=== PATIENT | female | born 1935 | race Caucasian/White ===

== ENCOUNTER 2019-03-26 09:11 | Inpatient (IN) | payer OTHER, MEDICAID ==
[~2019-03-26] VITALS: Ht 160 cm; Wt 60.3 kg
[2019-03-26] VITALS (19 sets, daily range): BP systolic 47–152; BP diastolic 27–74
--- NOTE | 2019-03-26 09:11 | NUR ---
ANGELA BUCKNER ALS TO ER BED 08
[2019-03-26] MEDS ORDERED: NACL 0.9% 1,000 ML IV ONE ×2 (09:35→11:20)
--- NOTE | 2019-03-26 09:37 | NUR ---
LAB AT BEDSIDE
--- NOTE | 2019-03-26 09:38 | NUR ---
VERBAL ORDER FROM DR DANIELS TO INSERT ANGLIN
--- NOTE | 2019-03-26 09:40 | NUR ---
84 Y/F BIBA AMBULANCE FROM [facility] FOR ALOC SINCE 6AM THIS MORNING, UNKNOWN BASELINE PER EMS. PERRLA. PT TRACHED AND ON A VENTILATOR FI02 30, PEEP 3, PEAK PRESSURE 35, TV 413, RR 13 EVEN AND UNLABORED. PT NONVERBAL, SHOWING NO SIGNS OF DISTRESS. HX OF AFIB, ACUTE RESP FAILURE, HTN, PARKINSONS, HEART FAILURE, CHRONIC AFIB, EPILEPSY, ANXIETY, AND HEMIPLEGIC. SKIN DRY AND WARM TO TOUCH.
--- NOTE | 2019-03-26 09:47 | NUR ---
BP NOW 98/52
--- NOTE | 2019-03-26 09:55 | NUR ---
XRAY AT BEDSIDE
--- NOTE | 2019-03-26 10:02 | NUR ---
EMT AT BEDSIDE FOR EKG
[2019-03-26 10:12] LABS: BASOPHILS % (AUTO) 0.1 % (0.0-2.0); EOSINOPHILS # (AUTO) 0.1 K/uL (0-0.4); EOSINOPHILS % (AUTO) 1.5 % (0.0-4.0); HEMOGLOBIN 10.4 g/dL (12.0-16.0); LYMPHOCYTES # (AUTO) 0.4 K/uL (2.5-16.5); LYMPHOCYTES % (AUTO) 5.4 % (20.5-51.1); MEAN CORPUSCULAR HEMOGLOBIN 32 pg (27-31); MEAN CORPUSCULAR HGB CONC 31 g/dL (33-37); MONOCYTES # (AUTO) 0.6 K/uL (0.8-1.0); MONOCYTES % (AUTO) 8.6 % (1.7-9.3); NEUTROPHILS # (AUTO) 5.5 K/uL (1.8-7.7); NEUTROPHILS % (AUTO) 84.4 % (42.2-75.2); PLATELET COUNT (AUTO) 235 K/uL (140-450); RED CELL DISTRIBUTION WIDTH 14.1 % (11.6-13.7); WHITE BLOOD COUNT (AUTO) 6.6 K/uL (4.8-10.8)
--- NOTE | 2019-03-26 10:24 | NUR ---
ABG RESULTS GIVEN TO , PHYSICIAN MADE CHANGES TO VENT SETTINGS. NEW SETTINGS AC/VC 14, VT 425, PEEP 5 AND FIO2 30%. NURSE MADE AWARE OF CHANGES. WILL CONTINUE TO MONITOR.
--- NOTE | 2019-03-26 10:30 | NUR ---
# 16 FR Antunez catheter with 10 ml utilizing sterile technique. Immediate return of 200 ml YELLOW urine noted. Bedside drainage bag placed below level of bladder. Urine sample collected and sent to lab. Pt tolerated procedure WELL.
--- NOTE | 2019-03-26 10:40 | NUR ---
WOUND TO PTS R LOWER EXTREMITY, PRESENT UPON ADMIT, PICTURES TAKEN
[2019-03-26 10:43] LABS: ALBUMIN 2.6 g/dL (3.4-5.0); ANION GAP 13.1 (8-16); ASPARTATE AMINOTRANSFERASE 15 U/L (15-37); CARBON DIOXIDE 31.1 mmol/L (21-32); CHLORIDE 99 mmol/L (98-107); CREATININE 1.1 mg/dL (0.6-1.3); GLUCOSE 176 mg/dL (74-106); POTASSIUM 5.2 mmol/L (3.5-5.1); SODIUM SERUM 138 mmol/L (136-145); TOTAL BILIRUBIN 0.3 mg/dL (0.0-1.0)
[2019-03-26 10:48] LABS: UREA NITROGEN, BLOOD 71 mg/dL (7-18)
--- NOTE | 2019-03-26 10:58 | NUR ---
PTS BP DROPPING. NOW 74/29 PT MOVING ARM TO PAIN IV STICK
[2019-03-26] MEDS ORDERED: LEVOFLOXACIN 500 MG/D5W PREMIX 100 ML IV ONE (11:00)
--- NOTE | 2019-03-26 11:02 | NUR ---
2 L BOLUS INFUSING. RECTAL TEMP 100.9
[2019-03-26 11:04] LABS: APPEARANCE,URINE HAZY (CLEAR); BILIRUBIN,URINE NEGATIVE (NEGATIVE); BLOOD, URINE NEGATIVE (NEGATIVE); COLOR,URINE YELLOW (YELLOW); LEUKOCYTE ESTERASE ,URINE 1+ (NEGATIVE); NITRITE, URINE NEGATIVE (NEGATIVE); PH,URINE 5.5 (5.0-9.0); UGLUCOSE NEGATIVE (NEGATIVE)
[2019-03-26] MEDS ORDERED: ACETAMINOPHEN 650 MG SUPP RC ONE (11:05)
--- NOTE | 2019-03-26 11:07 | NUR ---
BP NOW 94/44, VERBAL ORDER TO GIVE TYLENOL 650 MG RECTALLY.
[2019-03-26 11:14] LABS: RBC,URINE 0-5 /HPF (0-5); WBC,URINE 16-25 (MOD) /HPF (0-5)
--- NOTE | 2019-03-26 11:21 | NUR ---
LEVAQUIN IVBP STARTED
[2019-03-26] MEDS ORDERED: ASCO-770 GT (11:28)
[2019-03-26] MEDS ORDERED: MVI (11:36)
[2019-03-26] MEDS ORDERED: FURO-572 PO (11:36)
--- NOTE | 2019-03-26 11:39 | NUR ---
REPORT GIVEN TO MICHAEL RN, TRANSFER OF CARE, PT MOVED TO BED 10
[2019-03-26] MEDS ORDERED: LANS15EC31 GT (11:40)
--- NOTE | 2019-03-26 11:40 | NUR ---
ASSUMED CARE OF PT FROM WIL BRAGA.
--- NOTE | 2019-03-26 11:43 | NUR ---
Ozzy lynn in [facility] - 03/26/19 at 1147 by [email or web address] BP 102/
[2019-03-26] MEDS ORDERED: METO25TA PO (11:45)
--- NOTE | 2019-03-26 11:48 | NUR ---
DR DANIELS AT BEDSIDE
--- NOTE | 2019-03-26 11:56 | NUR ---
DR BLOOD AWARE OF BP AND IS AWARE OF NEED FOR CENTRAL LINE ACCESS.
--- NOTE | 2019-03-26 12:10 | NUR ---
LARGE BM CLEANED, MERLINE-CARE PROVIDED. DR DANIELS TO INSERT CENTRAL LINE.
--- NOTE | 2019-03-26 12:27 | NUR ---
INFORMED DR BLOOD THAT PT IS READY FOR CENTRAL LINE INSERTION.
--- NOTE | 2019-03-26 12:32 | NUR ---
INFROMED MRI TECH THAT PT NEEDED CENTRAL LINE, MRI TECH TO TALK TO DR LORD.
--- NOTE | 2019-03-26 12:40 | NUR ---
DR DANIELS AT BEDSIDE FOR CENTRAL LINE PLACEMENT.
[2019-03-26] MEDS ORDERED: NOREPINEPHRINE 4 MG in DEXTROSE 5% 250 ML IV ONE (12:50)
--- NOTE | 2019-03-26 13:10 | NUR ---
CENTRAL LINE INSERTION COMPLETED. ALL FLUIDS MOVED TO CENTRAL LINE.
--- NOTE | 2019-03-26 13:36 | NUR ---
PTS SON, LÓPEZ, AT BEDSIDE. UPDATED ON PLAN OF CARE. LÓPEZ EXPRESSED WISHES TO LEAVE PTS GLASSES ON SHE GETS SCARED WHEN SHE OPENS HER EYES WITHOUT THEM. EYEGLASSES ON PT AT THIS TIME. CONTACT INFO FOR LÓPEZ: [phone]
--- NOTE | 2019-03-26 13:51 | NUR ---
DR LORD INFORMED OF TACHYCARDIA. REPORTS THAT TACHYARDIA MAY BE RELATED TO PAIN. ORDERS FOR MORPHINE RECEVIED.
[2019-03-26] MEDS ORDERED: DEXT 5% / NACL 0.45% 1,000 ML IV ONE (13:55)
[2019-03-26] MEDS ORDERED: MORPHINE SULFATE 4 MG/ML SYR IVP ONE (13:55)
[2019-03-26] MEDS ORDERED: ONDANSETRON 4 MG/2 ML VIAL IM/IVP PRN (13:55)
[2019-03-26] MEDS ORDERED: ACETAMINOPHEN 325 MG TAB PO PRN (13:55)
[2019-03-26] MEDS ORDERED: DOCUSATE SODIUM 100 MG GELCAP PO PRN ×2 (13:55→17:45)
[2019-03-26] MEDS ORDERED: VANCOMYCIN PER PHARMACY MC PRN (14:10)
[2019-03-26] MEDS ORDERED: DOCU-299 PO (14:10)
[2019-03-26] MEDS ORDERED: CARB200T4 PO (14:10)
[2019-03-26] MEDS ORDERED: LORA-476 PO (14:10)
[2019-03-26] MEDS ORDERED: APIX5TAB PO (14:10)
[2019-03-26] MEDS ORDERED: DIA250 PO (14:10)
--- NOTE | 2019-03-26 14:14 | NUR ---
HR FLUCUATES BETWEEN 95-115. DR LORD AWARE. NO NEW ORDERS RECEIVED.
[2019-03-26] MEDS ORDERED: FUROSEMIDE 40 MG/4 ML VIAL IVP ONE (14:15)
--- NOTE | 2019-03-26 14:26 | NUR ---
PT REMAINS ON LEVOPHED GTT AT 6.5MCG/MIN. SBP REMAINS ABOVE 90. ALL NEEDS MET AT THIS TIME.
[2019-03-26 14:32] LABS: PROTHROMBIN TIME 8.9 secs (10.8-13.4)
[2019-03-26 15:15] LABS: CHOL/HDL RATIO 2.6 (1-4.5); PHOSPHORUS 3.4 mg/dL (2.5-4.9); THYROID STIMULATING HORMONE 0.11 uIU/mL (0.34-3.74)
[2019-03-26] MEDS ORDERED: LEVOFLOXACIN 750 MG/D5W PREMIX 150 ML IV SCH (15:35)
--- NOTE | 2019-03-26 15:43 | NUR ---
PT COMFORTABLE. FLACC 0. SEE IV FLOWSHEET FOR TITRATIONS. ALL NEEDS MET AT THIS POINT IN TIME.
--- NOTE | 2019-03-26 16:00 | NUR ---
RECTAL TUBE INSERTED PER VERBAL ORDER FROM DR MURRY. PT TOLERATED PROCEDURE WELL. BALLOON FILLED WITH 45CC STERILE WATER.
--- NOTE | 2019-03-26 16:03 | NUR ---
ABG NOT DONE AT THIS TIME MICHAEL/RN AT BEDSIDE FOR PROCEDURE PATIENT ON RIGHT SIDE SMALL ENGINE SPECIALIST TO ATTEMPT ABG AT A LATER TIME
--- NOTE | 2019-03-26 16:20 | NUR ---
PT APPEARS TO BE GRIMACING POST RECTAL TUBE INSERTION. WILL MEDICATE.
[2019-03-26] MEDS: MORPHINE SULFATE 2 MG/ML SYR IVP PRN (16:22)
--- NOTE | 2019-03-26 16:45 | NUR ---
RT AT BEDSIDE FOR ABG.
--- NOTE | 2019-03-26 16:55 | NUR ---
REVIWED ABG SAMPLE REPORT WITH DR. CARLOS MURRY NO NEW ORDERS
[2019-03-26] MEDS ORDERED: VANCOMYCIN 1,000 MG in DEXTROSE 5% 250 ML IV SCH (17:00)
--- NOTE | 2019-03-26 17:28 | NUR ---
PT REMAINS ON LEVOPHED GTT AT 8.5MCG/MIN. BLOOD PRESSURE STABLE AT THIS TIME. WILL CONTINUE TO MONITOR. ALL NEEDS MET.
[2019-03-26] MEDS ORDERED: LORazepam 1 MG TAB PO PRN ×2 (17:45→18:25)
[2019-03-26] MEDS ORDERED: PIPERACILLIN/TAZOBACTAM 3.375 GM in DEXTROSE 5% 50 ML IV SCH (18:00)
--- NOTE | 2019-03-26 18:27 | NUR ---
CALL RECD FROM PTS SON LÓPEZ. UPDATED ON PT STATUS AND RECD VERBAL CONSET FOR PICC LINE INSERTION. LÓPEZ TO VISIT TOMORROW MORNING.
[2019-03-26] MEDS ORDERED: LORazepam 2 MG/ML VIAL ONE (18:35)
[2019-03-26] MEDS ORDERED: LORazepam 2 MG/ML VIAL IVP PRN (18:40)
--- NOTE | 2019-03-26 18:40 | NUR ---
PT BANGING ON SIDE RAIL AND APPEARS AGITATED, HHR AT 134. CALL TO DR MURRY MADE AND ORDER FOR 1MG ATIVAN IV RECD.
--- NOTE | 2019-03-26 18:42 | NUR ---
1MG ATIVAN GIVEN IV ORDERED. UNABLE TO DOCUMENT ON APR.
[2019-03-26] MEDS ORDERED: PIPERACILLIN/TAZOBACTAM 3.375 GM VIAL IV ONE (18:45)
--- NOTE | 2019-03-26 19:01 | NUR ---
REPORT TO WIL WALSH. ALL CARE TRANSFFERED.
--- NOTE | 2019-03-26 19:45 | NUR ---
PT ADMITTED TO ICU BED 3. TRANSFERRED PT VIA GURNEY WITH KALIE HUYNH, MARSHALL RT; STABLE CONDITION. REPORT GIVEN TO SUNDAY DE LA TORRE; TRANSFER OF CARE AT THIS TIME.
--- NOTE | 2019-03-26 19:55 | NUR ---
PATIENT TRANSFERRED VIA GURNEY TO ICU BED 3. RT AND RN's AT BEDSIDE FOR TRANSFER. RECEIVED REPORT/ENDORSEMENT FROM ER NURSE. PATIENT OPENS EYES TO PAIN BUT NONVERBAL, DROWSY, CANNOT FOLLOW COMMANDS. PERRL, 3MM, BRISK. PATIENT IS TRACH TO VENT, ACVC 14, FI02 30%, TV 425, PEEP 5. LUNG SOUNDS CLEAR ON RIGHT SIDE BUT LEFT SIDE DIMINISHED. SATURATIONS 100%, BREATHING IS EVEN AND UNLABORED. S1S2 HEARD, AFIB ON MONITOR, HEART RATE 120 BPM. PATIENT IS ON LEVOPHED DRIP @ 8.49 MCG/MIN-31.87 ML/HR. RIGHT FEMORAL CENTRAL LINE IN PLACE, DRESSING DRY AND INTACT, FLUSHED AND PATENT WITHOUT SYMPTOMS. INFUSING LEVOPHED DRIP AND D51/2NS FLUIDS AT 150ML/HR. PERIPHERAL IV TO LEFT FOREARM, 20G, NOT PATENT, AND LEFT LOWER EXTREMITY PERIPHERAL IV, 20 G, NOT PATENT, CANNOT FLUSH AND NO BLOOD RETURN. GTUBE IN PLACE, CLAMPED, ABDOMEN IS SOFT AND NONTENDER WITH ACTIVE BOWEL SOUNDS. RECTAL BAG IN PLACE, NOTHING IN BAG. ANGLIN CATHETER IN PLACE WITH CLOUDY/SEDIMENT YELLOW URINE NOTED. SKIN IS LOOSE AND DRY, AFEBRILE. SMALL PRESSURE INJURY TO RIGHT LOWER LEG, DRESSING IS DRY. MILD WEAKNESS NOTED, PATIENT ABLE TO MOVE EXTREMITIES ON LEFT SIDE. RIGHT SIDE IS SLIGHTLY CONTRACTED AND PATIENT UNABLE TO MOVE ON RIGHT SIDE. PATIENT HAS GLASSES AND NO TEETH NOTED OR DENTURES. BED IS LOCKED AND IN LOWEST POSITION, SIDERAILS UPx4, SAFETY ALARMS IN PLACE. MRSA SWAB AND WOUND CULTURE SWAB COLLECTED. WILL CONTINUE TO MONITOR.
[2019-03-26] MEDS: PANTOPRAZOLE 40 MG INJ VIAL IVP SCH (20:45)
--- NOTE | 2019-03-26 20:45 | NUR ---
PATIENT IS VERY AGITATED, TRYING TO GRAB RN's FACE AND SHAKING AND POINTING FINGER AT RN, NOT ALLOWING RN TO TOUCH HER. VENT ALARMING, ATTEMPTED TO SUCTION PATIENT BUT NO SECRETIONS AND THIS AGITATES PATIENT. PT TRYING TO PULL AT TRACH TUBES. RT MADE AWARE OF CONSTANT ALARMING, AT BEDSIDE AND STATES PATIENT IS RESTLESS AND HOLDING BREATH WHICH CAUSES ALARM TO GO OFF. INCREASED OXYGEN. ADMINISTER IVP ATIVAN. WILL CONTINUE CLOSE MONITORING.
[2019-03-26] MEDS ORDERED: NOREPINEPHRINE 8 MG in DEXTROSE 5% 250 ML IV PRN (21:00)
[2019-03-26] MEDS ORDERED: METOPROLOL 25 MG TAB PO SCH (21:00)
[2019-03-26] MEDS ORDERED: APIXABAN 2.5 MG TAB PO SCH (21:00)
[2019-03-26] MEDS ORDERED: NOREPINEPHRINE 4 MG/4 ML VIAL IV ONE (22:18)
[2019-03-26] MEDS ORDERED: carBAMazepine 200 MG TAB GT SCH (23:00)
[2019-03-27] VITALS (99 sets, daily range): BP systolic 78–162; BP diastolic 26–114
[2019-03-27] MEDS: acetaZOLAMIDE 250 MG TAB PO SCH ×3 (00:05→21:49)
--- NOTE | 2019-03-27 00:15 | NUR ---
PATIENT IS TURNED AND REPOSITIONED, VERY STIFF BUT LEFT SIDE PATIENT IS REACHING FOR RN AND VERY CONFUSED, SHAKING HAND AT RN. PT TRYING TO TAKE OFF BLANKETS. REORIENTED PATIENT AND OFFLOADED PRESSURE AREAS. PROVIDED ORAL CARE. SAFETY ALARMS IN PLACE, HOB 30 DEGREES.
--- NOTE | 2019-03-27 03:05 | NUR ---
PATIENT RESTING WELL IN BED, WILL PERIODICALLY OPEN EYES SPONTANEOUSLY AND REACH FOR BLANKETS. LEFT HAND WILL START SHAKING. PATIENTS VENT WILL ALARM WITH HIGH PEAK ALARM AND HEART RATE AND BP WILL INCREASE. REORIENT PATIENT AND READJUST BLANKETS AND POSITION FOR COMFORT. PATIENT WILL CLOSE EYES AND REST AFTER ORIENTING TO UNIT AND ENVIRONMENT. WILL CONTINUE TO MONITOR.
[2019-03-27] MEDS: LORazepam 2 MG/ML VIAL IM/IVP PRN ×3 (03:59→19:38)
[2019-03-27] MEDS: carBAMazepine 200 MG TAB GT SCH ×3 (05:00→20:55)
--- NOTE | 2019-03-27 07:10 | NUR ---
RECEIVED PT REPORT FROM AUTOMOBILE SERVICE ADVISOR RN, SUNDAY. PT IS AOX1, OPEN EYES SPONTANEOUSLY, NONVERBAL, VENTILATED. PERRL. PT IS ABLE TO MOVE ALL EXTREMITIES. HX OF CVA, RIGHT SIDED WEAKNESS. NO EDEMA NOTED. WOUND TO THE RIGHT LEG, DRESSING IN PLACE, DRY AND INTACT, SEE DETAILS IN WOUND ASSESSMENT. IV TO THE RIGHT FEMORAL, TRIPLE LUMEN, DRESSING CLEAN AND INTACT. LEVOPHED RUNNING AT 4.5MCG/KG/MIN, DRY WEIGHT 51KG. LUNG SOUNDS CLEAR, VENT SETTING, FIO2 30%, VT 400, PEEP 5, RATE 14. ABD SOFT AND NON TENDER WITH BOWEL SOUNDS ACTIVE. RECTAL TUBE IN PLACE, WITH BALLOON INFLATED. ANGLIN CATH IN PLACE, DRAINING CLEAR YELLOW URINE. FALL PRECAUTIONS AND SZ PRECAUTIONS IN PLACE. WILL CONTINUE TO MONITOR.
[2019-03-27] MEDS: NOREPINEPHRINE 4 MG in DEXTROSE 5% 250 ML IV PRN ×2 (07:33→08:51)
[2019-03-27 08:10] LABS: FOLIC ACID 13.2 ng/mL (>3.0)
[2019-03-27] MEDS: LACTOBACILLUS RHAMNOSUS GG 1 EACH CAP PO SCH (08:47)
[2019-03-27] MEDS: PANTOPRAZOLE 40 MG INJ VIAL IVP SCH ×2 (08:47→20:55)
[2019-03-27] MEDS: ASCORBIC ACID 500 MG/5 ML ORASYR GT SCH (08:48)
[2019-03-27] MEDS ORDERED: [UNRECOGNIZED DRUG - OTHER] GT SCH (09:00)
[2019-03-27] MEDS ORDERED: LANSOPRAZOLE 30 MG GT SCH (09:00)
[2019-03-27] MEDS ORDERED: ASCORBIC ACID GT SCH (09:00)
[2019-03-27] MEDS ORDERED: ASCORBATE SODIUM GT SCH (09:00)
--- NOTE | 2019-03-27 09:00 | NUR ---
NOTIFIED DR. ZAMORA ABOUT HR IN THE 120'S. HE SAID TO NOTIFY HIM WHEN HR REACHES 130'S. VAL
--- NOTE | 2019-03-27 09:17 | NUR ---
PATIENT HAS BEEN SCREENED AND CATEGORIZED HIGH NUTRITION RISK. PATIENT WILL BE SEEN WITHIN 1-2 DAYS OF ADMISSION. 03/26/19-03/28/[address]
[2019-03-27 10:50] LABS: T4 (THYROXINE) 4.1 ug/dL (4.5 - 12.0)
[2019-03-27] MEDS ORDERED: LEVOFLOXACIN 500 MG/D5W PREMIX 100 ML IV SCH (10:50)
[2019-03-27] MEDS ORDERED: VANCOMYCIN PER PHARMACY MC PRN (10:50)
[2019-03-27 11:18] LABS: BASOPHILS % (AUTO) 0.2 % (0.0-2.0); EOSINOPHILS # (AUTO) 0.5 K/uL (0-0.4); HEMATOCRIT 25.2 % (36-48); LYMPHOCYTES # (AUTO) 1.1 K/uL (2.5-16.5); LYMPHOCYTES % (AUTO) 17.6 % (20.5-51.1); MEAN CORPUSCULAR HEMOGLOBIN 33 pg (27-31); MEAN CORPUSCULAR HGB CONC 32 g/dL (33-37); MEAN CORPUSCULAR VOLUME 103.4 fL (80-94); MONOCYTES # (AUTO) 0.8 K/uL (0.8-1.0); MONOCYTES % (AUTO) 11.5 % (1.7-9.3); NEUTROPHILS # (AUTO) 4.2 K/uL (1.8-7.7); NEUTROPHILS % (AUTO) 63.7 % (42.2-75.2); PLATELET COUNT (AUTO) 214 K/uL (140-450); RED BLOOD CELL COUNT(AUTO) 2.43 MIL/uL (4.20-5.40); RED CELL DISTRIBUTION WIDTH 14.4 % (11.6-13.7); WHITE BLOOD COUNT (AUTO) 6.5 K/uL (4.8-10.8)
[2019-03-27 11:26] LABS: ANION GAP 10.3 (8-16); CARBON DIOXIDE 25.4 mmol/L (21-32); CHLORIDE 107 mmol/L (98-107); CREATININE 0.8 mg/dL (0.6-1.3); GLUCOSE 121 mg/dL (74-106); POTASSIUM 3.7 mmol/L (3.5-5.1); SODIUM SERUM 139 mmol/L (136-145); UREA NITROGEN, BLOOD 46 mg/dL (7-18)
[2019-03-27] MEDS: LEVOFLOXACIN 250 MG/D5 PREMIX 50 ML IV SCH (11:47)
--- NOTE | 2019-03-27 12:30 | NUR ---
DR LUA CAME OVER, ASKED HIM TO SEE THE EKG V-TACH STRIP. DR LUA SAID IT'S NOT REALLY V-TACH. HE WILL ORDER METOPROLOL FOR THE HEART RATE.
[2019-03-27] MEDS: METOPROLOL 5 MG/5 ML VIAL IV PRN ×2 (13:24→19:44)
[2019-03-27] MEDS: HYDROCOLLOID DRESSING TP SCH (13:30)
--- NOTE | 2019-03-27 13:30 | NUR ---
WOUND CARE ASSESSMENT DONE TO THIS 84 Y/O FEMALE PT. ADMITTED WITH PRESSURE ULCER UN-STAGEABLE TO RIGHT TIBIA AREA, 2X1.3CM WOUND BED COVER WITH 100% SOFT YELLOW SLOUGH, MERLINE WOUND SKIN INTACT, WOUND EDGE FLAT, MOIST NO ODOR, MILD PAIN WHEN LEG ELEVATED. RIGHT TIP HALLUX 0.5X0.5 CM LIGHT YELLOW CALLUS, MERLINE CALLUS SKIN INTACT. POC DISCUSSED WITH PRIMARY RN AND PT. NEED REINFORCE PT. TEACHING. RECOMMENDATIONS: -CLEANSE RIGHT TIBIA PRESSURE ULCER WITH NS, PAT DRY,APPLY HYDROCOLLOID DRESSING AND CHANGE Q3 DAYS AND PRN SOILING -OFFLOAD BILATERAL HEELS BY PLACING PILLOWS UNDER CALVES UNLESS OTHERWISE CONTRAINDICATED -PRESSURE REDISTRIBUTION SURFACE THERAPY -TURN AND REPOSITION Q2H, OFFLOAD SACRALCOCCYX BY TURNING RIGHT AND LEFT -CONTINUE TO FOLLOW RD RECOMMENDATIONS ALL ABOVE RECOMMENDATIONS DISCUSSED WITH PRIMARY RN WILL FOLLOW UP PT Q7-10 DAYS. PLEASE CONTACT WOUND CARE NURSE FOR ANY QUESTION AND CHANGE OF WOUND CONDITION.
--- NOTE | 2019-03-27 15:33 | NUR ---
03/27/19 RD INITIAL ASSESSMENT COMPLETED PLEASE REFER TO NUTRITION ASSESSMENT UNDER CARE ACTIVITY FOR ESTIMATED NUTRITIONAL NEEDS. 1. IF/WHEN MEDICALLY STABLE CONSIDER TUBE FEEDING REC[facility]MENDATIONS OF [facility] @ 55 ML/HR -THIS WILL PROVIDE 1320 ML OF VOLUME, 1584 KCAL AND 73 GM OF PROTEIN WHICH MEETS 100% OF ESTIMATED NEEDS 2. RECOMMEND FREE WATER FLUSH OF 130 ML Q6H 3. CONTINUE VITAMIN C FOR WOUND HEALING 4. RD TO FOLLOW-UP 2-3 DAYS, MODERATE RISK SARAH MENA RD
--- NOTE | 2019-03-27 15:46 | NUR ---
DISCHARGE PLANNING: [place] 84 Y/O [place] [facility] [place] DUE TO UNRESPONSIVENESS X 1 DAY. PAST MEDICAL HISTORY INCLUDE CVA RIGHT HEMIPLEGIA, HYPOTHYROIDISM, SEIZURE DISORDER AND HIP FRACTURE. INITIAL DIAGNOSIS OF PNA AND UTI. CURRENT LABS INCLUDE WBC 6.5, H/H 8.0/25.2, NA/K 139/3.7, BUN/CREA 46/0.8. SPUTUM, BLOOD AND WOUND C/S STILL PENDING. CXR SHOWED MILD LEFT BASILAR ATELECTASIS VS INFILTRATE, SMALL LEFT PLEURAL EFFUSION. 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 CARDIO AND PULM,O CONSULTS IN PLACE. ON LEVOPHED DRIP. ON LEVOFLOXACIN. DC PL[place] [facility]. Addendum: 03/28/19 at 1134 by Palak Dougherty RECEIVED A CALL FROM CHILO HALL [place] [facility] SHE STATED THAT PATIENT IS IN THE PROCESS OF TRANSFERRING THE PATIENT TO [facility] WHEN THE PATIENT BECAME UNRESPONSIVE AND WAS BROUGHT IN TO THE HOSPITAL. SHE PROVIDED ME O THE EMBEDDED SOFTWARE ARCHITECT ARSLAN AT [facility] [phone]. SHE ALSO STATED THAT ARSLAN WILL BE CONTACTING ME TO GET UPDATE. SHE ALSO STATED THAT SHE WILL BE CALLING THE PATIENT'S SON TO INFORM HIM OF THE TRANSFER. Addendum: 03/28/19 at 1428 by Palak Dougherty CM STILL IN ICU, TRACH TO VENT FIO2 24%. ON LEVOPHED DRIP AT 2 MCG. CURRENT LABS INCLUDE WBC 5.7, H/H 7.6/23.9, NA/K 142/3.6, BUN/CREA 31/0.8. BLOOD CULTURE NO GROWTH AFTER 8 HOURS. WOUND C/S PENDING. URINE CULTURE SHOWED YEAST. ON VANCO, FLUCONAZOLE AND LEVOFLOXACIN. CARDIO, ID AND PULMO CONSULTS IN PLACE. CURRENT CXR SHOWED DIFFUSE INTERSTITIAL PROMINENCE WHICH MAYBE RELATED TO ACUTE OR CHRONIC PROCESSES. RESOLVED OPACITY OF THE LEFT LUNG BASE. DC PLAN PENDING ON PATIENT'S RESPONSE TO TREATMENT. Addendum: 03/29/19 at 0858 by Palak Dougherty CM LATE ENTRY FOR YESTERDAY 03/29/2019 AT 1625: RECEIVED A CALL FROM ARSLAN PARKER [phone] OF [facility] STATING THAT IF PATIENT IS DISCHARGING, THEY ARE ABLE TO ACCEPT THE PATIENT. I ASKED HIM WHAT IS THE REASON FOR TRANSFER, HE STATED BECAUSE THEY CAN TAKE CARE OF [facility] PATIENTS. I ALSO ASKED HIM IF THEY CAN PROVIDED TRANSPORTATION SINCE FAC[place]. HE STATED HE WILL DISCUSS THIS TO HIS LEGAL ADVISER AND WILL CALL ME BACK TOMORROW FOR UPDATES. HE PROVIDED ME WITH THEIR E FAX [phone] TO SEND CLINICALS. Addendum: 03/29/19 at 0917 by Palak Dougherty CM STILL IN ICU, TRACH TO VENT FIO2 24%. CURRENT LABS INCLUDE WBC 6.5, H/H 8.4/25.9, NA/K 144/4.0, BUN/CREA 20/0.8. ON VANCO, FLUCONAZOLE AND LEVOFLOXACIN. ID, PULMO AND CARDIO CONSULTS IN PLACE. DC PLAN PENDING ON PATIENT'S RESPONSE TO TREATMENT. Addendum: 03/30/19 at 1341 by Marnie Leyva CM DC PLANNING: SPUTUM CULTURE MDRO-HISTOLOGY AIDE CONTACT ISOLATION. DR MAYFIELD (ID) ON THE CASE STARTED TOBRAMYCIN IV SEEN BY PULMO AND CARDIO CONTINUE IV ABX VANCO FOR TREATMENT OF ASPIRATION PNEUMONIA AND UTI. CM TO FOLLOW Addendum: 04/03/19 at 1711 by Marnie Leyva CM DC PLANNING SPOKE WITH SAVAGE [place] [facility]ARD[place] PT'S PLACEMENT PER SAVAGE THEY CAN ACCEPT THE PATIENT./ DC PLAN TO GO [place] [facility] [place] CM TO FOLLOW Addendum: 04/05/19 at 1455 by Marnie Leyva DC PLANNING PT HAS A DC ORDER TO GO BACK [place] [facility] [place] GO TO ROOM [address] ACC[address] JIM MARLOW # TO GIVE REPORT [phone] ARRANGED TRANSPORT WITH [facility] [employer]ATFORM OPERATOR TIME 6 PM Addendum: 04/05/19 at 1544 by Marnie Leyva CM DC PLANNING ARRANGED TRANSPORT WITH [facility] [employer]AT[employer] OPERATOR TIME 4:30 PM NOTIFIED ZACARIAS GOSS NURSE.
--- NOTE | 2019-03-27 16:40 | NUR ---
FIO2 TITRATED TO 24%. PT AWAKE IN BED NOT IN ANY DISTRESS. VENT CHECK COMPLETED. WILL CONTINUE TO MONITOR.
[2019-03-27] MEDS: NACL 0.9% 1,000 ML IV SCH (17:58)
[2019-03-27] MEDS ORDERED: VANCOMYCIN 750 MG in DEXTROSE 5% 250 ML IV SCH (18:00)
--- NOTE | 2019-03-27 18:00 | NUR ---
STARTED TUBE FEEDING JEVITY 1.2, AT 10ML/HR, WATER FLUSH 130ML Q6H.
--- NOTE | 2019-03-27 19:30 | NUR ---
[facility]. A/O X1. FLAILING ARMS, RESISTING CARE. MEDICATED WITH PRN ATIVAN ORDERED. CURRENTLY RESTING IN BED IN NO ACUTE DISTRESS. PERRL. OPENS EYES SPONTANEOUSLY, RESPONDS TO NAME. TRACH TO VENT WITH VENT SETTINGS FOLLOWS: 425, 14, 5, FI02 24%. SPO2 @ 100% ON MONITOR. DRY WEIGHT 51KG. GT PATENT RUNNING JEVITY 1.2 @ 10ML/HRW 150 H20 FLUSH Q 6H. + PLACEMENT VERIFIED VIA AIR BOLUS. RESIDUAL 0. ABDOMEN SOFT, NON-DISTENDED W ACTIVE BOWEL SOUNDS X4. RT FEM TRIPLE LUMEN CENTRAL LINE INFUSING VANCO @ 165ML/HR AND LEVOPHED @ 2.5MCG/MIN. INDWELLING URINARY CATH PATENT DRAINING CLEAR, YELLOW, URINE TO GRAVITY. BED LOW AND LOCKED WITH SEIZURE PRECAUTIONS IN PLACE. CALL LIGHT LEFT WITHIN REACH. WILL CONTINUE TO MONITOR FOR CHANGES.
[2019-03-27] MEDS: FLUCONAZOLE 200 MG/NS PREMIX 100 ML IV SCH (20:54)
[2019-03-27] MEDS ORDERED: FLUCONAZOLE 200 MG/NS PREMIX 100 ML IV SCH (21:00)
[2019-03-27] MEDS ORDERED: APIXABAN 2.5 MG TAB PO SCH (21:00)
[2019-03-27] MEDS: APIXABAN 2.5 MG TAB PO SCH (21:27)
--- NOTE | 2019-03-27 21:30 | NUR ---
VAP ORAL CARE PROVIDED. SUCTIONED TRACH WITH SMALL AMOUNT OF THIN WATERY SECRETIONS. FLACC 0. REPOSITIONED WITH SAFETY PRECAUTIONS IN PLACE. WILL CONTINUE TO MONITOR.
--- NOTE | 2019-03-27 23:30 | NUR ---
PT RESTING IN BED AT THIS TIME. EASILY AROUSABLE. FLACC 0. REPOSITIONED WITH PRESSURE AREAS OFFLOADED. SAFETY PRECAUTIONS REMAIN IN PLACE. CALL LIGHT LEFT WITHIN REACH. WILL CONTINUE TO MONITOR.
[2019-03-28] VITALS (61 sets, daily range): BP systolic 88–193; BP diastolic 35–135
--- NOTE | 2019-03-28 | NUR ---
INCREASED FEEDING TO 30CC/HR. ZERO RESIDUAL NOTED. + PLACEMENT VERIFIED VIA AIR BOLUS. SAFETY PRECAUTIONS REMAIN IN PLACE. BED LOW AND LOCKED. CALL LIGHT WITHIN REACH.
--- NOTE | 2019-03-28 02:00 | NUR ---
VSS. FLACC 0. REPOSITIONED. SAFETY PRECAUTIONS IN PLACE. BED LOW AND LOCKED. WILL CONTINUE TO MONITOR.
--- NOTE | 2019-03-28 04:00 | NUR ---
BED BATH GIVEN. LINENS CHANGED. CATH CARE PROVIDED. VSS. SAFETY PRECAUTIONS REMAIN IN PLACE. WILL CONT TO MONITOR.
[2019-03-28] MEDS: carBAMazepine 200 MG TAB GT SCH ×3 (04:07→21:09)
[2019-03-28] MEDS: MORPHINE SULFATE 2 MG/ML SYR IVP PRN (05:43)
[2019-03-28 05:59] LABS: ANION GAP 10.8 (8-16); CARBON DIOXIDE 25.8 mmol/L (21-32); CHLORIDE 109 mmol/L (98-107); CREATININE 0.8 mg/dL (0.6-1.3); GLUCOSE 125 mg/dL (74-106); POTASSIUM 3.6 mmol/L (3.5-5.1); SODIUM SERUM 142 mmol/L (136-145); UREA NITROGEN, BLOOD 31 mg/dL (7-18)
[2019-03-28 06:03] LABS: BASOPHILS % (AUTO) 0.1 % (0.0-2.0); EOSINOPHILS # (AUTO) 0.5 K/uL (0-0.4); EOSINOPHILS % (AUTO) 8.5 % (0.0-4.0); HEMATOCRIT 23.9 % (36-48); HEMOGLOBIN 7.6 g/dL (12.0-16.0); LYMPHOCYTES # (AUTO) 0.9 K/uL (2.5-16.5); MEAN CORPUSCULAR HEMOGLOBIN 33 pg (27-31); MEAN CORPUSCULAR HGB CONC 32 g/dL (33-37); MONOCYTES # (AUTO) 0.7 K/uL (0.8-1.0); MONOCYTES % (AUTO) 12.4 % (1.7-9.3); NEUTROPHILS # (AUTO) 3.6 K/uL (1.8-7.7); PLATELET COUNT (AUTO) 196 K/uL (140-450); RED BLOOD CELL COUNT(AUTO) 2.32 MIL/uL (4.20-5.40); RED CELL DISTRIBUTION WIDTH 14.3 % (11.6-13.7); WHITE BLOOD COUNT (AUTO) 5.7 K/uL (4.8-10.8)
[2019-03-28 06:34] LABS: PHOSPHORUS 2.1 mg/dL (2.5-4.9)
--- NOTE | 2019-03-28 07:30 | NUR ---
ENDORSED PT TO ANA MONIQUE FOR CONTINUITY OF CARE. VSS.
--- NOTE | 2019-03-28 08:00 | NUR ---
RECIEVED PT FROM FATOUMATA DE LA TORRE. THE PT IS FROM A SNF SHE HAD HX OF STROKE WITH RIGHT SIDED WEAKNESS. SHE CAME WITH FEVER/SEPSIS/PNA/UTI. SHE OPENS HER EYES AND TRACKS SPONTANEOUSLY. SHE WOULD NOT FOLLOW COMMANDS FOR ME BUT SHE DID PURPOSEFULLY HIT MY ARM WHEN I TRIED TO REPOSITION HER. SHE IS AFEBRILE WITH SKIN WARM AND DRY. SHE IS ON LEVOPHED FOR BP SUPPORT. IV ATBX. SHE DOES GET TACHYCARDIC AT TIMES WHEN AGITATED. AF SHE IS VENT DEPENDENT (TRACH TO VENT). SHE HAS DIMINISHED BREATH SOUNDS WITH BILATERAL CRACKLES IN THE BASES. SEE RESPIRATORY NOTES FOR SETTINGS. THE PT HAS A GTUBE WITH JEVITY RUNNING AT 30CC PER HOUR. RECTAL TUBE IN PLACE. SHE DOES HAVE A WOUND ON HER RIGHT FIBULA AREA WITH DRESSING DRY AND INTACT. STABLE AND WITHOUT DISTRESS AT THIS TIME.
[2019-03-28] MEDS ORDERED: SODIUM PHOS / POTASSIUM PHOS 1 PKT PDR GT SCH (08:52)
[2019-03-28] MEDS: APIXABAN 2.5 MG TAB PO SCH ×2 (09:00→21:09)
[2019-03-28] MEDS: LACTOBACILLUS RHAMNOSUS GG 1 EACH CAP PO SCH (09:23)
[2019-03-28] MEDS: ASCORBIC ACID 500 MG/5 ML ORASYR GT SCH (09:23)
[2019-03-28] MEDS: acetaZOLAMIDE 250 MG TAB PO SCH ×2 (09:24→21:10)
[2019-03-28] MEDS: PANTOPRAZOLE 40 MG INJ VIAL IVP SCH ×2 (09:24→21:07)
--- NOTE | 2019-03-28 10:00 | NUR ---
THE PT REMAINS ON LEVOPHED AT 2MCGS/MIN. SHE PULLED OFF HER O2 SENSOR AND I REAPPLIED IT. I DID MENTION TO THE MD RESIDENTS THAT THE PTS HBG WAS DROPPING. THEY CONVEYED TO ME TO HOLD ELIQUIS TODAY AND WE WILL RECHECK HBG TOMORROW.
[2019-03-28] MEDS: LEVOFLOXACIN 250 MG/D5 PREMIX 50 ML IV SCH (11:23)
--- NOTE | 2019-03-28 12:18 | NUR ---
Executive Manager Note: Basic Screen: Yes High Risk DC Screen Roberta: TOMMIE Steward Relationship: SON Pre-Admission Living Arrangements: SNF Prior ADL Needs Assistance Current Home Health Name/Tel: N/A Current DME/02 Name/Tel: TRACH TO VENT Current Hospice Name/Tel: N/A Current Dialysis Name/Tel: N/A Healthcare Decision Maker: Next of Kin Advance Directive No Physician Orders for Life Sustaining Treatment Form No Discipline: Case Mgt/Social Svcs Tentative Discharge Plan/Destination: No Needs Identified Will require assistance post discharge: No Referred to Professional System Administrator: No Tentative Discharge Plan Summary: Patient is an 84-year-old female admitted for pneumonia and UTI. Patient has PMHX of CVA, right hemiplegia, hypothyroidism, seizure disorder, hip fracture. Patient was admitted from [facility]. SW contacted Komal from [facility] [phone]. Per Komal, patient is sub-acute and currently on a bed hold. Patient needs assistance with all ADLs and is bed bound. Patient has no advanced directive on file. Patients tentative discharge plan is to return to [facility]. No further needs identified. Signature: SELENE Snyder Date: Mar 28, 2019 Time: 12:17
--- NOTE | 2019-03-28 13:00 | NUR ---
I DID SHUT OFF THE LEVOPHED. HER BP DIPPED FOR AWHILE BUT THEN I REPOSITIONED HER AND HER AGITATION RAISED IT ONCE AGAIN.
[2019-03-28] MEDS: NACL 0.9% 1,000 ML IV SCH (13:35)
--- NOTE | 2019-03-28 16:00 | NUR ---
THEM PT IS WATCHING TV IN BED AND SMILED WHEN I GAVE HER A THUMBS UP. HER SBP IS IN THE HUNDREDS AND SHE REMAINS OFF OF THE LEVOPHED AT THIS TIME.
--- NOTE | 2019-03-28 17:37 | NUR ---
DR LUA OF CARDIOLOGY WAS HERE. HE WROTE FOR DIGOXIN. SEE ORDERS AND MAR.
[2019-03-28] MEDS ORDERED: DIGOXIN 0.25 MG/ML AMP IV SCH (18:00)
--- NOTE | 2019-03-28 19:00 | NUR ---
I TRANSFERRED THE PT TO ROOM 116 OF THE TELE UNIT. I GAVE REPORT TO SANDRO DE LA TORRE. THE CAME WITH US. NO PT HAD NO DISTRESS AND THE MONITOR WAS APPLIED. Addendum: 03/28/19 at 2010 by Agency 05 WIL RN WRONG ENTRY
--- NOTE | 2019-03-28 19:25 | NUR ---
RECEIVED REPORT FROM DAYSHIFT NURSE AT PATIENTS BEDSIDE. PATIENT AWAKE AND ALERT, NONVERBAL, BUT FOLLOWS SOME SIMPLE COMMANDS. RIGHT SIDED WEAKNESS NOTED, LEFT SIDE ABLE TO MOVE EXTREMITIES. PATIENT IS TRACH TO VENT, ACVC 14 FI02 24%, TV 425, PEEP 5. LUNG SOUNDS ARE CLEAR ALL THROUGHOUT, BREATHING IS UNLABORED, SATURATIONS 97%. HEART RATE ELEVATED, 125BPM, TACHY, AFIB ON MONITOR. GTUBE IN PLACE CONNECTED TO FEEDING, JEVITY 1.2 @ 30ML/HR. ABDOMEN IS SOFT AND NONTENDER WITH ACTIVE BOWEL SOUNDS, PATIENT BECOMES IRRITATED WHEN ASSESSING ABDOMEN AND SUCTIONING TRACH. VERY PARTICULAR ABOUT BEING TOUCHED. BLOOD PRESSURE AND HEART RATE INCREASES WHEN AGITATED. SKIN IS WARM AND DRY, AFEBRILE. RIGHT FEMORAL CENTRAL LINE, PATENT AND FLUSHED GOOD BLOOD RETURN. INFUSING IVF NS@ 50ML/HR. ANGLIN CATHETER IN PLACE, CLEAR YELLOW URINE NOTED. RECTAL TUBE IN PLACE WELL, NO REPORTS OF BOWEL MOVEMENTS. RIGHT LOWER LEG-LATERAL SIDE, SMALL PRESSURE WOUND, DRESSING DRY AND INTACT. LOWER EXTREMITIES OFFLOADED PRESSURE SITES WITH PILLOWS. PATIENT IS TURNED, CLEANED AND REPOSITIONED WITH DAYSHIFT NURSE. PATIENT ORIENTED TO TREATMENT PLAN AND CALL LIGHT. HOB 30 DEGREES, SEIZURE PRECAUTIONS IN PLACE. SIDERAILS UPx3, WILL CONTINUE TO MONITOR.
--- NOTE | 2019-03-28 19:44 | NUR ---
RECEIVED PT FROM DAY SHIFT ON AC 14,425,+5, 24%. VENT PLUGGED INTO RED OUTLET. BMV AT BEDSIDE. ALARMS AUDIBLE AND WORKING. PT IS ALERT AND SATURATION IS GOOD. TRACH IS SECURED WITH A TRACH TIE. WILL CONTINUE TO MONITOR.
[2019-03-28] MEDS: VANCOMYCIN 1,000 MG in DEXTROSE 5% 250 ML IV SCH (21:07)
[2019-03-28] MEDS: FLUCONAZOLE 200 MG/NS PREMIX 100 ML IV SCH (21:07)
--- NOTE | 2019-03-28 21:35 | NUR ---
RESIDUALS LESS THAN 5 ML, INCREASED TUBE FEEDING RATE TO 40 ML/HR. SCHEDULED MEDICATIONS ADMINISTERED. SEIZURE PRECAUTIONS IN PLACE, ORIENTED TO CALL LIGHT.
--- NOTE | 2019-03-28 23:06 | NUR ---
PROVIDED ORAL CARE FOR PATIENT, PATIENT INSISTS TO ALLOW HER TO PERFORM SELF CARE. INDEPENDENT WITH LEFT HAND ONLY, RIGHT HAND NOTED WITH MILD WEAKNESS. TURNED AND REPOSITIONED PATIENT. ALL NEEDS MET AT THIS TIME.
[2019-03-29] VITALS (22 sets, daily range): BP systolic 100–160; BP diastolic 45–113
--- NOTE | 2019-03-29 01:10 | NUR ---
PATIENT WILL BECOME AGITATED WHEN PROVIDING NURSING CARE, PATIENT IS SLIGHTLY CONFUSED. WILL SMILE AND LAUGH WITH RN's AND THEN WILL GET EASILY UPSET WHEN TOUCHING OR ASSESSING PATIENT. REORIENTATION HELPS CALM PATIENT. SMALL AMOUNT OF WHITE CREAMY SECRETIONS NOTED IN TRACH, BUT PATIENT DOES NOT LIKE TO BE SUCTIONED, ENCOURAGE INVOLVEMENT AND PROVIDE EDUCATION.
[2019-03-29] MEDS ORDERED: DIGOXIN 0.25 MG/ML AMP IV SCH ×2 (02:00→18:30)
--- NOTE | 2019-03-29 02:45 | NUR ---
PATIENT WAS EDUCATED ON IMPORTANCE OF TRACH AND LINES/TUBES. TOLD PATIENT IF SHE TRIES TO PULL OUT LINES THEN SHE WILL HAVE TO BE RETRAINED. PATIENT VERBALIZES UNDERSTANDING AND AGREES TO NOT DISRUPT TREATMENT PLAN. HOB 30 DEGREES, SIDERAILS UP, SEIZURE PRECAUTIONS IN PLACE
--- NOTE | 2019-03-29 04:00 | NUR ---
PATIENT TURNED AND REPOSITIONED. ASSISTED WITH VAP ORAL CARE. PATIENT TOLERATED WELL. AWAKE AND ALERT. ABLE TO GESTURE AND MOUTH SOME WORDS AND MAKE NEEDS KNOWN. SPONGE BATH PROVIDED AND PERINEAL/ANGLIN CARE PROVIDED. RECTAL TUBE IN PLACE, NO BOWEL MOVEMENT NOTED. ALL NEEDS MET AT THIS TIME, DENIES PAIN.
[2019-03-29] MEDS: carBAMazepine 200 MG TAB GT SCH ×3 (06:10→20:18)
--- NOTE | 2019-03-29 06:10 | NUR ---
PATIENT RESTING WELL FINALLY, EYES CLOSED, PATIENT WAS AWAKE THE WHOLE NIGHT. TRACH TO VENT, ACVC FI02 24%, TV 425 RATE 14 PEEP 5. RIGHT FEMORAL CENTRAL LINE IN PLACE INFUSING NS @ 50ML/HR. GTUBE TO FEEDING @ 40 ML/HR. AFIB ON MONITOR. TURNED AND REPOSITIONED. ALL OTHER VITALS WITHIN NORMAL LIMITS. CALL LIGHT WITHIN REACH.
[2019-03-29 06:26] LABS: ANION GAP 11.8 (8-16); CARBON DIOXIDE 25.2 mmol/L (21-32); CHLORIDE 111 mmol/L (98-107); CREATININE 0.8 mg/dL (0.6-1.3); GLUCOSE 107 mg/dL (74-106); SODIUM SERUM 144 mmol/L (136-145); UREA NITROGEN, BLOOD 20 mg/dL (7-18)
[2019-03-29 06:27] LABS: BASOPHILS % (AUTO) 0.2 % (0.0-2.0); EOSINOPHILS # (AUTO) 0.5 K/uL (0-0.4); EOSINOPHILS % (AUTO) 7.3 % (0.0-4.0); HEMATOCRIT 25.9 % (36-48); HEMOGLOBIN 8.4 g/dL (12.0-16.0); LYMPHOCYTES # (AUTO) 1.2 K/uL (2.5-16.5); LYMPHOCYTES % (AUTO) 19.1 % (20.5-51.1); MEAN CORPUSCULAR HEMOGLOBIN 33 pg (27-31); MEAN CORPUSCULAR HGB CONC 32 g/dL (33-37); MONOCYTES # (AUTO) 0.7 K/uL (0.8-1.0); NEUTROPHILS % (AUTO) 62.4 % (42.2-75.2); PLATELET COUNT (AUTO) 213 K/uL (140-450); RED BLOOD CELL COUNT(AUTO) 2.52 MIL/uL (4.20-5.40); RED CELL DISTRIBUTION WIDTH 14.9 % (11.6-13.7); WHITE BLOOD COUNT (AUTO) 6.5 K/uL (4.8-10.8)
[2019-03-29 06:31] LABS: MAGNESIUM 1.8 mg/dL (1.8-2.4); PHOSPHORUS 2.5 mg/dL (2.5-4.9)
--- NOTE | 2019-03-29 07:30 | NUR ---
RECEIVED PT FROM PM SHIFT RN. PT AWAKE, ALERT. ABLE TO FOLLOW COMMANDS. BEDSIDE MONITOR SHOWS AFIB 118S. RR 12, BP 133/76, O2 SATS 99%. TRACH TO VENT WITH SETTING FIO2=24%, QY=302, AC 14 PEEP 5. PT HAS IV TO RIGHT FEMORAL RUNNING 0.9 NS AT 50 CC/HR. PT HAS TUBE FEEDING JEVITY 1.2 @ 50 CC/HR AND H2O 130 CCQ 6 HRS[address] F/C IN PLACE AND RECTAL TUBE IN PLACE. SKIN NONINTACT SEE WOUND ASSESSMENT. CALL LIGHT IN REACH, WILL CONTINUE TO MONITOR.
[2019-03-29] MEDS: FERROUS SULFATE 300 MG/5 ML UDC GT SCH (08:00)
--- NOTE | 2019-03-29 08:00 | NUR ---
ENDORSED PT TO [place] CHARGE NURSE.
--- NOTE | 2019-03-29 08:00 | NUR ---
REPOSITION , ORAL CARE GIVEN. AWAKE AND CONFUSE.
--- NOTE | 2019-03-29 08:15 | NUR ---
VIVEK REYNOSO AND THE RESIDENT TEAM MAKING ROUND AT BED SIDE.
[2019-03-29] MEDS: NACL 0.9% 1,000 ML IV SCH (09:35)
[2019-03-29] MEDS: PANTOPRAZOLE 40 MG INJ VIAL IVP SCH ×2 (09:43→20:18)
[2019-03-29] MEDS: acetaZOLAMIDE 250 MG TAB PO SCH ×2 (09:43→20:18)
[2019-03-29] MEDS: ASCORBIC ACID 500 MG/5 ML ORASYR GT SCH (09:44)
[2019-03-29] MEDS: LACTOBACILLUS RHAMNOSUS GG 1 EACH CAP PO SCH (09:44)
[2019-03-29] MEDS: APIXABAN 2.5 MG TAB PO SCH ×2 (09:45→20:21)
[2019-03-29] MEDS ORDERED: FERROUS SULFATE 325 MG TABEC PO ONE (09:54)
--- NOTE | 2019-03-29 10:00 | NUR ---
PT AWAKE AND ALERT SPONGE BATH AND SHAMPOO HER HAIR PT REFUSE TO HAVE HER HAIR COMB.
[2019-03-29] MEDS: LEVOFLOXACIN 250 MG/D5 PREMIX 50 ML IV SCH (11:32)
--- NOTE | 2019-03-29 12:30 | NUR ---
VISIT BY HER SON AT BEDSIDE,
[2019-03-29] MEDS: LORazepam 2 MG/ML VIAL IM/IVP PRN (12:53)
--- NOTE | 2019-03-29 13:12 | NUR ---
03/29/19 RD FOLLOW UP COMPLETED PLEASE REFER TO NUTRITION ASSESSMENT UNDER CARE ACTIVITY FOR ESTIMATED NUTRITIONAL NEEDS. 1. CONTINUE JEVITY 1.2 @ 55 ML/HR -THIS WILL PROVIDE 1320 ML OF VOLUME, 1584 KCAL AND 73 GM OF PROTEIN WHICH MEETS 100% OF ESTIMATED NEEDS 2. RECOMMEND FREE WATER FLUSH OF 130 ML Q6H 3. CONTINUE VITAMIN C FOR WOUND HEALING 4. RD TO FOLLOW-UP 2-3 DAYS, HIGH RISK SARAH MENA RD
--- NOTE | 2019-03-29 15:45 | NUR ---
THE SPUTUM C/S HAS PSEUDOMONAS AERUGINOSA DR. SUAREZ AWARE WILL GIVE THE ORDERED.
--- NOTE | 2019-03-29 16:43 | NUR ---
LAB CALL WOUND C.S ON THE LEG POSITIVE FOR STAPHYLOCOCCUS AUREUS MRSA DR. SUAREZ NOTIFIED WILL SEE THE PATIENT AND GIVE THE ORDER.
[2019-03-29] MEDS ORDERED: TOBRAMYCIN PER PHARMACY MC PRN (16:50)
--- NOTE | 2019-03-29 18:01 | NUR ---
PT. SLEEPING MONITOR SHOW ATRIAL FIBRILLATION AT THE RATE OF 100/MIN. V/S WITH IN NORMAL LIMIT, ANGLIN CATH DRAIN URINE 450ML.
--- NOTE | 2019-03-29 18:15 | NUR ---
SEEN BY DR GONSALES AT BED SIDE, ORDER RECEIVED.
--- NOTE | 2019-03-29 18:30 | NUR ---
DIGOXIN GIVEN ORDERED.
[2019-03-29] MEDS: VANCOMYCIN 1,000 MG in DEXTROSE 5% 250 ML IV SCH (18:32)
--- NOTE | 2019-03-29 19:20 | NUR ---
PT CONDITION STABLE. REPOT GIVE TO SUNDAY DE [facility].
--- NOTE | 2019-03-29 19:20 | NUR ---
RECEIVED REPORT FROM DAYSHIFT NURSE AT PATIENTS BEDSIDE. PATIENT AWAKE AND ALERT, OPENS EYES SPONTANEOUSLY, NONVERBAL, MOUTHS SOME WORDS, ABLE TO MAKE NEEDS KNOWN VIA GESTURES AND NODDING YES/NO. PERRL 3MM, BRISK, EYE GLASSES IN PLACE. TRACH TO VENT, ACVC 14, FI02 24% TV 425 PEEP 5. LUNG SOUNDS VERY WET, ENCOURAGED PATIENT TO ALLOW TRACHEAL SUCTION. SUCTIONED THICK WHITE CREAMY SECRETIONS. LUNG SOUNDS STILL RHONCHI. SATURATIONS 97%, BREATHING IS UNLABORED. HEART RATE 99 BPM ON MONITOR. AFIB. SKIN WARM AND DRY, BUT NOT INTACT, SMALL PRESSURE WOUND TO RIGHT LOWER LATERAL EXTREMITY. WOUND CULTURE + FOR MRSA. CONTACT ISOLATION PRECAUTIONS IN PLACE. RIGHT FEMORAL CENTRAL LINE, FLUSHED AND PATENT WITHOUT SYMPTOMS, GOOD BLOOD RETURN, INFUSING NS @ 50 ML, CURRENTLY IVPB VANCOMYCIN. ABDOMEN IS SOFT AND TENDER WITH PALPATION, PATIENT BECOMES AGITATED WITH TOO MUCH TACTILE STIMULI. GTUBE IN PLACE TO FEEDING AT 55ML/HR. ANGLIN CATHETER IN PLACE, CLEAR YELLOW URINE NOTED. PATIENT TURNED AND REPOSITIONED, RECTAL TUBE IN PLACE, NO SIGNS OF STOOL. PRESSURE AREAS OFFLOADED WITH PILLOWS. SIDERAILS UP, BED LOCKED AND IN LOW POSITION, HOB 30 DEGREES. PATIENT ORIENTED TO TREATMENT FOR TONIGHT AND CALL LIGHT; WITHIN REACH. WILL CONTINUE TO MONITOR.
--- NOTE | 2019-03-29 19:31 | NUR ---
REEVALUATE BP AFTER DIGOXIN ADMINISTRATION, ALL VITALS WITHIN NORMAL LIMITS.
[2019-03-29] MEDS: TOBRAMYCIN IV SCH (20:17)
[2019-03-29] MEDS: NACL 0.9% IV SCH (20:17)
[2019-03-29] MEDS: FLUCONAZOLE 200 MG/NS PREMIX 100 ML IV SCH (20:18)
--- NOTE | 2019-03-29 22:05 | NUR ---
IN TO ASSESS PATIENT, NO NEW ORDERS AT THIS TIME. PATIENT AWAKE AND ALERT, RESTING WELL.
[2019-03-29] MEDS: MORPHINE SULFATE 2 MG/ML SYR IVP PRN (22:23)
--- NOTE | 2019-03-29 23:00 | NUR ---
PAIN MEDICATION-MORPHINE IVP EFFECTIVE. PATIENT RESTING WELL, FLACC 0. SAFETY PRECAUTIONS IN PLACE, HOB 30 DEGREES, SIDERAILS UP, BED LOCKED AND IN LOWEST POSITION. VITALS WITHIN NORMAL RANGE. WILL CONTINUE TO MONITOR.
[2019-03-30 01:17] VITALS: BP 112/59
--- NOTE | 2019-03-30 02:00 | NUR ---
RESTING WELL IN BED, EYES CLOSED. TRACH TO VENT, SETTINGS SAME START OF SHIFT. EQUAL CHEST RISE, BREATHING IS UNLABORED. IV FLUIDS INFUSING AT 50ML/HR.
[2019-03-30 03:34] VITALS: BP 115/52
--- NOTE | 2019-03-30 04:02 | NUR ---
VENT ALARM SOUNDING OFF, PATIENT WAKING UP. SUCTIONED SMALL AMOUNT OF WHITE CREAMY SECRETIONS. PATIENT VERY AGITATED WITH SUCTIONING. ENCOURAGED TO ALLOW CLEANING AND SUCTIONING. VENT ALARMING, PATIENT HOLDING BREATH. REORIENT PATIENT. REPOSITIONED FOR COMFORT.
[2019-03-30] MEDS: carBAMazepine 200 MG TAB GT SCH ×3 (04:47→21:51)
[2019-03-30] MEDS: NACL 0.9% 1,000 ML IV SCH (05:35)
[2019-03-30 05:53] VITALS: BP 145/76
[2019-03-30 06:05] LABS: BASOPHILS % (AUTO) 0.4 % (0.0-2.0); EOSINOPHILS # (AUTO) 0.4 K/uL (0-0.4); EOSINOPHILS % (AUTO) 6.6 % (0.0-4.0); HEMATOCRIT 24.8 % (36-48); HEMOGLOBIN 7.9 g/dL (12.0-16.0); LYMPHOCYTES # (AUTO) 0.8 K/uL (2.5-16.5); LYMPHOCYTES % (AUTO) 14.2 % (20.5-51.1); MEAN CORPUSCULAR HEMOGLOBIN 33 pg (27-31); MEAN CORPUSCULAR HGB CONC 32 g/dL (33-37); MEAN CORPUSCULAR VOLUME 103.4 fL (80-94); MONOCYTES # (AUTO) 0.5 K/uL (0.8-1.0); MONOCYTES % (AUTO) 8.7 % (1.7-9.3); NEUTROPHILS % (AUTO) 70.1 % (42.2-75.2); PLATELET COUNT (AUTO) 197 K/uL (140-450); RED CELL DISTRIBUTION WIDTH 14.8 % (11.6-13.7); WHITE BLOOD COUNT (AUTO) 5.8 K/uL (4.8-10.8)
--- NOTE | 2019-03-30 06:45 | NUR ---
PATIENT TRANSFERRED TO [facility] BED TO DOWNGRADE TO [facility] ROOM 124 B. TWO RT's AND 2 RN's AT BEDSIDE. PATIENT IN STABLE CONDITION, UPDATED ON TREATMENT. ALL BELONGINGS WITH PATIENT INCLUDING EYE GLASSES AND [place] GREEN WRIST WATCH ON PATIENT. VITALS BEFORE TRANSFER-HR 116 BPM .BP: 136/74; RR-30-02 SAT 96%. NO PAIN. GTUBE CLAMPED. ANGLIN AND RECTAl bag to bedside. rt bagging patient. endorsed care to [facility] nurse.
--- NOTE | 2019-03-30 06:51 | NUR ---
REPORT RECEIVED FROM ICU NURSE AT BEDSIDE. PT IN STABLE CONDITION. AAOX3-4. INTRODUCED SELF TO PT. NO COMPLAINTS OF PAIN. NO SOB TRACH TO VENT. AFEBRILE. PT IS BEDBOUND. PT HAS GTUBE RUNNING JEVITY 1.2@55ML/HR WITH 130ML H20 FLUSH Q4H. PT HAS RECTAL TUBE. PT HAS ANGLIN. IV SITE R FEMORAL TRIPLE LUMEN RUNNING NS@50ML/HR PATENT AND INTACT. SKIN WARM, DRY, AND NOT INTACT DUE TO A RIGHT LOWER EXTREMITY SKIN TEAR. BED LOCKED IN LOW POSITION. CALL BURK WITHIN REACH. SAFETY PRECAUTION IN PLACE. ALL NEEDS MET AT THIS TIME.
--- NOTE | 2019-03-30 07:00 | NUR ---
PT SLEEPING COMFORTABLY. PT IN STABLE CONDITION.
--- NOTE | 2019-03-30 07:15 | NUR ---
RECEIVED REPORT FROM CREATIVE ARTS MUSIC THERAPIST NURSE. PATIENT IS FULL CODE WITH ALLERGIES TO DILTIAZEM, PENICILLIN, KEPPRA. PT CAME FROM [facility], APHASIC, MECHANICAL VENT @BASELINE. VENT SETTINGS ARE RR 14, PEEP 5, FIO2 24%, VT 425 ML. PATIENT HAS A F/C AND RECTAL TUBE. PATIENT HAS A RIGHT FEMORAL CENTRAL LINE DOUBLE LUMEN. SKIN IS NON-INTACT WITH A SKIN TEAR TO RIGHT LOWER EXTREMITY. 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 PATIENT IS RESTING IN BED CURRENTLY, NO DISTRESS NOTED. WILL REVIEW AND CONTINUE WITH PLAN OF CARE FOR THE DAY.
[2019-03-30 07:28] LABS: MAGNESIUM 1.7 mg/dL (1.8-2.4); PHOSPHORUS 2.6 mg/dL (2.5-4.9)
[2019-03-30] MEDS: FERROUS SULFATE 300 MG/5 ML UDC GT SCH (08:00)
--- NOTE | 2019-03-30 08:00 | NUR ---
CONTINUED PATIENTS TUBE FEEDING JEVITY 1.2. BEGAN AT SLOW INFUSION OF 20ML/HR TO INCREASE TO GOAL OF 55ML/HR. PATIENT TOLERATING WELL. WILL CONTINUE TO CHECK RESIDUAL.
--- NOTE | 2019-03-30 08:00 | NUR ---
RECIVED PT ON VENT WITH SETTINGS CHARTED BREATH SOUNDS PRESENT BILAT SCATTERD RALES BILATTRACH SITE SECURE SXN PT WITH MIN TO MOD AMT OFF WHITE SECS AMBU BAG BEDSIDE VENT PLUGGED INTO RED OUTLET
[2019-03-30 08:48] LABS: ANION GAP 13.9 (8-16); CARBON DIOXIDE 22.1 mmol/L (21-32); CHLORIDE 111 mmol/L (98-107); CREATININE 0.7 mg/dL (0.6-1.3); GLUCOSE 125 mg/dL (74-106); SODIUM SERUM 143 mmol/L (136-145); UREA NITROGEN, BLOOD 15 mg/dL (7-18)
[2019-03-30] MEDS: ASCORBIC ACID 500 MG/5 ML ORASYR GT SCH (09:06)
[2019-03-30] MEDS: LACTOBACILLUS RHAMNOSUS GG 1 EACH CAP PO SCH (09:06)
[2019-03-30] MEDS: acetaZOLAMIDE 250 MG TAB PO SCH ×2 (09:07→21:57)
[2019-03-30] MEDS: APIXABAN 2.5 MG TAB PO SCH ×2 (09:08→22:09)
[2019-03-30] MEDS: HYDROCOLLOID DRESSING TP SCH (09:10)
[2019-03-30] MEDS: PANTOPRAZOLE 40 MG INJ VIAL IVP SCH (09:11)
--- NOTE | 2019-03-30 09:15 | NUR ---
ADMINISTERED MORNING MEDICATION VIA G-TUBE. PATIENT TOLERATED WELL. VITAL SIGNS STABLE PRIOR. NO DISTRESS AT THIS TIME.
[2019-03-30 11:24] VITALS: BP 160/80
[2019-03-30] MEDS: LEVOFLOXACIN 250 MG/D5 PREMIX 50 ML IV SCH (11:43)
--- NOTE | 2019-03-30 11:55 | NUR ---
PATIENT RESTING QUIETLY IN BED. NO COMPLAINTS OR DISTRESS NOTED. WHEN ASKED IF SHE NEEDS ANYTHING PATIENT SHOOK HER HEAD NO. WILL CONTINUE TO MONITOR.
[2019-03-30] MEDS ORDERED: MAG SULF 2000 MG/WATER PREMIX 50 ML IV SCH (13:00)
--- NOTE | 2019-03-30 15:30 | NUR ---
CHANGE PATIENTS SHEETS AND CHUX WITH THE ASSISTANCE OF EDEL BAZZI. PATIENT HAD MEDIUM BM DARK BROWN IN COLOR. EMPTIED 650ML YELLOW URINE FROM F/C. RT AT BEDSIDE. NO FURTHER COMPLAINTS AT THIS TIME.
[2019-03-30] MEDS: DIGOXIN 0.125 MG TAB PO SCH (17:00)
--- NOTE | 2019-03-30 17:39 | NUR ---
CONTINUED TO MONITOR T ON VENT WITH SETTINGS CHARTED BREATH SOUNDS PRESENT BILAT SXN PT WITH MIN TO MOD AMT OFF WHIT SECS TRACH SITE SECURE AMBU BAG AT BEDSIDE VENT PLUGGED INTO RED OUTLET
--- NOTE | 2019-03-30 18:41 | NUR ---
RECEIVED CRITICAL OF VANCO TROUGH 17.4. DID NOT NOTIFY DR D/T EMAR STATING TO HOLD VANCO IF LEVEL IS >20. WILL CONTINUE TO ADMINISTER VANCO FOR 1900.
[2019-03-30] MEDS: LORazepam 2 MG/ML VIAL IM/IVP PRN (18:52)
--- NOTE | 2019-03-30 18:52 | NUR ---
ADMINISTERED ATIVAN FOR AGITATION. HUNG IVPB VANCOMYCIN NEXT DOSE. WILL ENDORSE TO NEXT SHIFT FOR CONTINUITY OF CARE
[2019-03-30] MEDS: VANCOMYCIN 1,000 MG in DEXTROSE 5% 250 ML IV SCH (18:56)
--- NOTE | 2019-03-30 19:30 | NUR ---
RECEIVED BEDSIDE REPORT FROM DAY SHIFT NURSE SILVANO RN, PT STABLE, NO DISTRESS NOTED, CENTRAL LINE TO R FEMORAL, PATENT INTACT, INFUSING WELL, PT ON TRACH TO VENT, NO SOB NOTED, G TUBE FEEDINGS IN PLACE, ANGLIN CATH IN PLACE, RECTAL TUBE IN PLACE, NO DISTRESS NOTED, INITIAL ASSESSMENT DONE, ALL SAFETY PRECAUTION MET, CALL LIGHT WITHIN REACH, WILL CONTINUE TO MONITOR.
--- NOTE | 2019-03-30 19:33 | NUR ---
RECEIVED PT FROM DAY SHIFT ON AC 14,425,+5,24%. VENT PLUGGED INTO RED OUTLET. BMV AT HEAD OF BED. ALARMS AUDIBLE AND WORKING. TRACH IS INTACT WITH A TRACH TIE. PT SATURATION IS GOOD. WILL CONT TO MONITOR.
[2019-03-30 20:00] VITALS: BP 129/51
[2019-03-30] MEDS: NACL 0.9% IV SCH (20:54)
[2019-03-30] MEDS: TOBRAMYCIN IV SCH (20:54)
--- NOTE | 2019-03-30 20:54 | NUR ---
DUE MEDICATION ADMINISTERED, PT TOLERATE DWELL, NO DISTRESS NOTED, CALL LIGHT WITHIN REACH, WILL CONTINUE TO MONITOR.
[2019-03-30] MEDS: FLUCONAZOLE 200 MG/NS PREMIX 100 ML IV SCH (21:51)
--- NOTE | 2019-03-30 21:57 | NUR ---
DUE MEDICATION ADMINISTERED, PT TOLERATED WELL, NO DISTRESS NOTED, CALL LIGHT WITHIN REACH, WILL CONTINUE TO MONITOR.
[2019-03-30] MEDS: HYDROcodone/APAP 7.5/325 MG 1 TAB PO PRN (22:12)
--- NOTE | 2019-03-30 22:12 | NUR ---
PT C/O PAIN, MEDICATION PER DR ORDER ADMINISTERED, PT TOLERATED WELL, NO DISTRESS NOTED, CALL LIGHT WITHIN REACH, WILL CONTINUE TO MONITOR.
--- NOTE | 2019-03-30 23:50 | NUR ---
CHECKED ON PT, PT SLEEPING, V/S TAKEN, CALL LIGHT WITHIN REACH, WILL CONTINUE TO MONITOR.
[2019-03-31] VITALS (7 sets, daily range): BP systolic 118–147; BP diastolic 56–72
--- NOTE | 2019-03-31 02:45 | NUR ---
PT DID A BM, CLEANED AND REPOSITION PT, PT REFUSING, EDUCATED PT REGARDING IMPORTANCE OF REPOSITIONING, PT TOLERATED WELL, NO DISTRESS NOTED, CALL LIGHT WITHIN REACH. WILL CONTINUE TO MONITOR.
--- NOTE | 2019-03-31 03:39 | NUR ---
PT AWAKE IN BED NOT IN ANY DISTRESS. TRACH SECURE WITH A PATENT AIRWAY. WILL CONTINUE TO MONITOR.
[2019-03-31] MEDS: carBAMazepine 200 MG TAB GT SCH ×3 (05:15→20:55)
[2019-03-31] MEDS: NACL 0.9% 1,000 ML IV SCH (05:35)
--- NOTE | 2019-03-31 05:40 | NUR ---
PT LEFT ON DOCUMENTED SETTING. VENT IS PLUGGED INTO RED OUTLET. BMV AT HEAD OF BED. ALARMS AUDIBLE AND WORKING. PT REFUSES TRACH CARE AND WILL NOT LET ME TOUCH HER..
[2019-03-31 05:48] LABS: BASOPHILS % (AUTO) 0.2 % (0.0-2.0); EOSINOPHILS # (AUTO) 0.4 K/uL (0-0.4); EOSINOPHILS % (AUTO) 6.9 % (0.0-4.0); HEMATOCRIT 24.2 % (36-48); HEMOGLOBIN 7.7 g/dL (12.0-16.0); LYMPHOCYTES # (AUTO) 0.8 K/uL (2.5-16.5); LYMPHOCYTES % (AUTO) 13.2 % (20.5-51.1); MEAN CORPUSCULAR HEMOGLOBIN 33 pg (27-31); MEAN CORPUSCULAR HGB CONC 32 g/dL (33-37); MEAN CORPUSCULAR VOLUME 102.9 fL (80-94); MONOCYTES # (AUTO) 0.6 K/uL (0.8-1.0); MONOCYTES % (AUTO) 9.5 % (1.7-9.3); NEUTROPHILS # (AUTO) 4.2 K/uL (1.8-7.7); NEUTROPHILS % (AUTO) 70.2 % (42.2-75.2); PLATELET COUNT (AUTO) 202 K/uL (140-450); RED BLOOD CELL COUNT(AUTO) 2.35 MIL/uL (4.20-5.40); WHITE BLOOD COUNT (AUTO) 5.9 K/uL (4.8-10.8)
[2019-03-31 06:05] LABS: CHLORIDE 111 mmol/L (98-107); CREATININE 0.6 mg/dL (0.6-1.3); GLUCOSE 131 mg/dL (74-106); POTASSIUM 4.2 mmol/L (3.5-5.1); SODIUM SERUM 142 mmol/L (136-145); UREA NITROGEN, BLOOD 14 mg/dL (7-18)
[2019-03-31 06:07] LABS: ANION GAP 11.7 (8-16); CARBON DIOXIDE 23.5 mmol/L (21-32)
[2019-03-31 06:14] LABS: MAGNESIUM 2.1 mg/dL (1.8-2.4); PHOSPHORUS 2.8 mg/dL (2.5-4.9)
--- NOTE | 2019-03-31 07:22 | NUR ---
ENDORSED PT TO DAY SHIFT NURSE BAO RN, PT STABLE, NO DISTRESS NOTED, CAREGIVER AT BEDSIDE.
--- NOTE | 2019-03-31 07:24 | NUR ---
RECEIVED BEDSIDE REPORT FROM MARKETING ASSISTANT MANAGER NURSE FOR CONTINUITY OF CARE. PT IS AWAKE AND RESTING ON BED. PT IS APHASIC. RESPIRATION EVEN AND UNLABORED ON TRACH TO VENT, SETTING FIO2 24%, VT 425 ML, RATE 14, FLOW 30 I/MIN, PEEP 5,SPO2 AT 97%. FLACC 0. NO SIGNS OF DISTRESS NOTED. R FEMORAL TRIPLE LUMEN NOTED, CLEAN AND INTACT, INFUSING PER MD ORDER. R TIBIA WOUND NOTED, COVERED WITH DRESSING, DRESSING CLEAN AND DRY. G-TUBE IN PLACE, AND INFUSING JEVITY 1.2 PER MD ORDER. PT IS INCONTINENT AND RECTAL TUBE IN PLACE. PT IS BEDREST. TELE MONITOR ATTACHED. SAFETY MEASURES IN PLACE. CONTACT PRECAUTION IN PLACE AND SIGN POSTED BY DOOR. BED IN LOW POSITION AND CALL LIGHT WITHIN REACH. FALL RISK PROTOCOL IN PLACE AND BED ALARM ACTIVATED.
[2019-03-31] MEDS: FERROUS SULFATE 300 MG/5 ML UDC GT SCH (08:55)
[2019-03-31] MEDS: PANTOPRAZOLE 40 MG INJ VIAL IVP SCH (08:56)
[2019-03-31] MEDS: ASCORBIC ACID 500 MG/5 ML ORASYR GT SCH (08:56)
[2019-03-31] MEDS: METOPROLOL SUCCINATE 50 MG TABER PO SCH (08:57)
[2019-03-31] MEDS: acetaZOLAMIDE 250 MG TAB PO SCH ×2 (08:57→20:54)
[2019-03-31] MEDS: LACTOBACILLUS RHAMNOSUS GG 1 EACH CAP PO SCH (08:57)
--- NOTE | 2019-03-31 08:57 | NUR ---
CHECKED BP PRIOR TO MEDS ADMINISTRATION, BP 140/77 AND PULSE 114. CHECKED G-TUBE RESIDUAL AND RECEIVED < 5 ML. FLUSHED BEFORE AND AFTER MEDS ADMINISTER, MEDS ED PROVIDED TO PT AND REINFORCEMENT NEEDED. PT TOLERATED MEDS VIA G-TUBE WELL. RESPIRATION EVEN AND UNLABORED ON TRACH TO VENT, SPO2 AT 99%. FLACC 0. NO SIGNS OF DISTRESS NOTED. TELE MONITOR ATTACHED. RECTAL TUBE IN PLACE AND EMPTY. ANGLIN IN PLACE AND DRAINING YELLOW URINE WITH GRAVITY. SAFETY MEASURES IN PLACE, HOB ELEVATED TO 30 DEGREE. BED IN LOW POSITION AND CALL LIGHT WITHIN REACH. BED ALARM ACTIVATED.
[2019-03-31] MEDS: APIXABAN 2.5 MG TAB PO SCH ×2 (08:58→20:55)
[2019-03-31] MEDS ORDERED: CRUSHER, PILL MC ONE (09:04)
--- NOTE | 2019-03-31 09:38 | NUR ---
ASSISTED MARKETING AND DEVELOPMENT COORDINATOR TO REPOSITION AND TURN PT. PT TOLERATED WELL. PROVIDED ORAL HYGIENE AND PT TOLERATED WELL. NO SIGNS OF DISTRESS NOTED. TELE MONITOR ATTACHED. SAFETY MEASURES IN PLACE. BED IN LOW POSITION AND CALL LIGHT WITHIN REACH. BED ALARM ACTIVATED.
--- NOTE | 2019-03-31 10:35 | NUR ---
HUNG A NEW BOTTLE OF JEVITY 1.2, AND INFUSING PER MD ORDER, PT TOLERATED WELL. PT AWAKE AND WATCHING TV ON BED. RESPIRATION EVEN AND UNLABORED ON TRACH TO VENT, SPO2 AT 96%. DENIED PAIN. NO SIGNS OF DISTRESS NOTED. SAFETY MEASURES IN PLACE. BED IN LOW POSITION AND CALL LIGHT WITHIN REACH. BED ALARM ACTIVATED.
--- NOTE | 2019-03-31 11:20 | NUR ---
PT IS RESTING ON BED AND AROUSABLE TO VOICE. RESPIRATION EVEN AND UNLABORED ON TRACH TO VENT, SPO2 AT 97%. DENIED PAIN, SOB, AND DIZZINESS. NO SIGNS OF DISTRESS NOTED. TELE MONITOR ATTACHED. SAFETY MEASURES IN PLACE. HOB ELEVATED TO 30 DEGREE, BED IN LOW POSITION AND CALL LIGHT WITHIN REACH, BED ALARM ACTIVATED.
--- NOTE | 2019-03-31 11:27 | NUR ---
CALLED [facility] [phone] AND SPOKE WITH MADDIE FOR PT'S VACCINATION RECORD. PER MADDIE, FLU VACCINE WAS RECEIVED ON 03/03/2019, PNA VACCINE WAS RECEIVED ON 03/08/2019.
--- NOTE | 2019-03-31 12:30 | NUR ---
PT'S SON ASH IS TALKING TO PT AT BEDSIDE. INSTRUCTED BRAIN TO PUT ON PEE AT ALL TIMES IN PT'S ROOM. BRAIN WAS AWARE. PT COMPLAINED THAT SHE HAS PAIN, WILL MEDICATE. NO SIGNS OF DISTRESS NOTED. TELE MONITOR ATTACHED. SAFETY MEASURES IN PLACE.
[2019-03-31] MEDS: HYDROcodone/APAP 7.5/325 MG 1 TAB PO PRN ×2 (12:36→23:47)
--- NOTE | 2019-03-31 12:36 | NUR ---
PT COMPLAINED SHE HAS 5/10 PAIN ON HER LEG, REPOSITIONED AND ELEVATED WITH PILLOWS. PT MOUTHED "NO! HURT!" ADMINISTERED PRN PAIN MED NORCO VIA G-TUBE, AND MED EDUCATION PROVIDED TO PT'S SON BRAIN BY BEDSIDE. CHECKED G-TUBE RESIDUAL AND RECEIVED < 5 ML, FLUSHED BEFORE AND AFTER MEDS ADMINISTERED, PT TOLERATED WELL. NO SIGNS OF DISTRESS NOTED. TELE MONITOR ATTACHED. SAFETY MEASURES IN PLACE. BED ALARM ACTIVATED.
--- NOTE | 2019-03-31 13:38 | NUR ---
REASSESSED PT FOR PAIN, PT IS ASLEEP, AROUSABLE TO VOICE. RESPIRATION EVEN AND UNLABORED ON TRACH TO VENT, SPO2 AT 97%. FLACC 0. NO SIGNS OF DISTRESS NOTED. TELE MONITOR ATTACHED. SAFETY MEASURES IN PLACE. BED IN LOW POSITION AND CALL LIGHT WITHIN REACH. BED ALARM ACTIVATED.
--- NOTE | 2019-03-31 15:10 | NUR ---
03/31/19 RD FOLLOW UP COMPLETED PLEASE REFER TO NUTRITION ASSESSMENT UNDER CARE ACTIVITY FOR ESTIMATED NUTRITIONAL NEEDS. 1. CONTINUE JEVITY 1.2 @ 55 ML/HR X24 HR -THIS WILL PROVIDE 1320 ML OF VOLUME, 1584 KCAL AND 73 GM OF PROTEIN WHICH MEETS 100% OF ESTIMATED NEEDS 2. CONTINUE WATER FLUSH OF 130 ML Q6H 3. CONTINUE VITAMIN C FOR WOUND HEALING 4. RD TO FOLLOW-UP 2-3 DAYS, HIGH RISK SARAH MENA RD
--- NOTE | 2019-03-31 15:25 | NUR ---
PT IS RESTING ON BED COMFORTABLY. RESPIRATION EVEN AND UNLABORED ON TRACH TO VENT. WHEN ASK IF SHE IS IN PAIN, PT MOUTHED "NO." NO SIGNS OF DISTRESS NOTED. TELE MONITOR ATTACHED. SAFETY MEASURES IN PLACE. BED ALARM ACTIVATED.
--- NOTE | 2019-03-31 15:54 | NUR ---
Ground Services Instructor Note: ISABEL contacted patient's son Feliciano Nino regarding discharge plan for patient [phone]. Per Feliciano, he would prefer for patient to return to [facility]. Feliciano stated he refuses for patient to be discharged to [facility]. ISABEL informed CM. ISABEL will follow up with Feliciano regarding discharge plan.
--- NOTE | 2019-03-31 16:46 | NUR ---
PT IS AGITATED AND KEEP ON HITTING THE BED AND VENT WENT OFF WITH PEAK HIGH. ATTENDED TO PATIENT WITH SCRUB WHEEL OPERATOR. TRIED TO REPOSITION PT AND SUCTION PT, PT IS PUSHING US AWAY WITH HER L HAND. ASSESSED PT'S VITAL SIGNS, BP 135/65, PULSE 122, RR 17 SPO2 AT 98% ON TRACH TO VENT, FACIAL GRIMACING AND KICKING WITH HER R LEG. ADMINISTERED PRN ATIVAN 0.5 MG VIA IVP, VERIFIED WITH ANOTHER RN EMA. TELE MONITOR ATTACHED. SAFETY MEASURES IN PLACE. BED ALARM ACTIVATED.
[2019-03-31] MEDS: LORazepam 2 MG/ML VIAL IM/IVP PRN (16:48)
--- NOTE | 2019-03-31 17:15 | NUR ---
PT IS CALM AND RESTING ON BED. EXPLAINED TO PT THAT WE HAVE TO REPOSITION AND CLEAN HER, PT NODDED. WITH HELP FROM ANOTHER RN AND JOINT CUTTER MACHINE, REPOSITIONED AND CLEAN PT. PT TOLERATED WELL. NO SIGNS OF DISTRESS NOTED. TELE MONITOR ATTACHED. SAFETY MEASURES IN PLACE. BED ALARM ACTIVATED.
[2019-03-31] MEDS: VANCOMYCIN 1,000 MG in DEXTROSE 5% 250 ML IV SCH (18:51)
--- NOTE | 2019-03-31 18:51 | NUR ---
VERIFIED VANCO DOSAGE WITH PHARMACIST, VANCO TROUGH WAS 17.1, PER PHARMACIST, IT'S OK TO ADMINISTER . ADMINISTERED VANCOMYCIN VIA IVPB PER MD ORDER, MED ED PROVIDED TO PT AND REINFORCEMENT NEEDED. PT AWAKE AND RESTING ON BED COMFORTABLY. RESPIRATION EVEN AND UNLABORED ON TRACH TO VENT, SPO2 AT 98%. WHEN ASKED IF SHE HAS ANY PAIN, PT MOUTHED "NO." NO SIGNS OF DISTRESS NOTED. TELE MONITOR ATTACHED. SAFETY MEASURES IN PLACE. BED ALARM ACTIVATED.
--- NOTE | 2019-03-31 19:26 | NUR ---
ENDORSED PT AT BEDSIDE TO NAIL KEGGER NURSE FOR CONTINUITY OF CARE. PT AWAKE AND RESTING ON BED AT THIS TIME. NO SIGNS OF DISTRESS NOTED. TELE MONITOR ATTACHED. PT IS IN STABLE CONDITION. SAFETY MEASURES IN PLACE. BED ALARM ACTIVATED.
--- NOTE | 2019-03-31 19:31 | NUR ---
RECEIVED BEDSIDE REPORT FROM DAY SHIFT NURSE. PATIENT IS AWAKE, RESPIRATION EVEN UNLABORED TRACH TO VENT. SKIN IS WARM AND DRY. IV PATENT AND INTACT. G-TUBE FEEDING NOTED. RECTAL BAG NOTED. PLAN OF UP TO DATE. ALL SAFETY MEASURES IN PLACE. BED IS AT LOW POSITION. CALL LIGHT WITHIN REACH. WILL CONTINUE TO MONITOR.
--- NOTE | 2019-03-31 20:10 | NUR ---
INITIAL ASSESSMENT DONE. VITALS WERE TAKEN. CHECKED PATIENT G-TUBE RESIDUAL. OBTAINED 0CC. WILL CONTINUE TO MONITOR.
[2019-03-31] MEDS: FLUCONAZOLE 200 MG/NS PREMIX 100 ML IV SCH (20:19)
--- NOTE | 2019-03-31 21:00 | NUR ---
ALL SCHEDULED MEDS WERE GIVEN PER ORDER. NO ASE NOTED. WILL CONTINUE TO MONITOR.
--- NOTE | 2019-03-31 21:15 | NUR ---
PHARMACY CALLED INSTRUCT TO ADMINISTER TOBRAMYCIN IV WITHOUT THE RESULT OF TROUGH. WILL CONTINUE TO MONITOR.
[2019-03-31] MEDS: TOBRAMYCIN IV SCH (21:32)
[2019-03-31] MEDS: NACL 0.9% IV SCH (21:32)
--- NOTE | 2019-03-31 22:50 | NUR ---
CHECKED PATIENT. PATIENT SLEEPING RESPIRATION EVEN UNLABORED ON ROOM AIR. NO DISTRESS NOTED. CONVERTER OPERATOR AT BEDSIDE. WILL CONTINUE TO MONITOR.
--- NOTE | 2019-03-31 23:51 | NUR ---
VITALS WERE TAKEN. PATIENT COMPLAINED OF PAIN, FACIAL GRIMACING NOTED. WILL CONTINUE TO MONITOR.
[2019-04-01] VITALS: BP 137/59
--- NOTE | 2019-04-01 02:07 | NUR ---
CHECKED PATIENT. PATIENT SLEEPING RESPIRATION EVEN UNLABORED ON TRACH TO VENT. NO DISTRESS NOTED. WILL CONTINUE TO MONITOR.
[2019-04-01 04:00] VITALS: BP 144/59
--- NOTE | 2019-04-01 04:05 | NUR ---
VITALS WERE TAKEN. PATIENT IN STABLE CONDITION. NO DISTRESS NOTED. WILL CONTINUE TO MONITOR.
[2019-04-01] MEDS: carBAMazepine 200 MG TAB GT SCH ×3 (04:57→22:05)
[2019-04-01] MEDS: NACL 0.9% 1,000 ML IV SCH (05:35)
--- NOTE | 2019-04-01 07:07 | NUR ---
ENDORSED PATIENT TO DAY SHIFT NURSE. PATIENT IN STABLE CONDITION.
--- NOTE | 2019-04-01 07:08 | NUR ---
Received report from pm nurse Thierry. Pt asleep in bed, respirations even & nonlabored on trach to vent (24%FiO2 TV425 R14 PEEP5). Right femoral 3-lumen IV intact with ongoing NS @ 20ml/h. GT intact with ongoing feeding of Jevity 1.2 @ 55ml/h. HOB elevated at 30. Antunez cath in place and draining clear yellow urine. Rectal bag in place without output at this time. Call light within reach.
[2019-04-01 07:10] LABS: BASOPHILS % (AUTO) 0.3 % (0.0-2.0); EOSINOPHILS # (AUTO) 0.5 K/uL (0-0.4); EOSINOPHILS % (AUTO) 7.6 % (0.0-4.0); HEMATOCRIT 25.2 % (36-48); LYMPHOCYTES # (AUTO) 0.9 K/uL (2.5-16.5); LYMPHOCYTES % (AUTO) 13.3 % (20.5-51.1); MEAN CORPUSCULAR HEMOGLOBIN 33 pg (27-31); MEAN CORPUSCULAR HGB CONC 32 g/dL (33-37); MEAN CORPUSCULAR VOLUME 103.8 fL (80-94); MONOCYTES # (AUTO) 0.6 K/uL (0.8-1.0); MONOCYTES % (AUTO) 9.3 % (1.7-9.3); NEUTROPHILS # (AUTO) 4.8 K/uL (1.8-7.7); NEUTROPHILS % (AUTO) 69.5 % (42.2-75.2); PLATELET COUNT (AUTO) 215 K/uL (140-450); RED BLOOD CELL COUNT(AUTO) 2.43 MIL/uL (4.20-5.40); RED CELL DISTRIBUTION WIDTH 14.9 % (11.6-13.7); WHITE BLOOD COUNT (AUTO) 6.9 K/uL (4.8-10.8)
[2019-04-01 07:25] LABS: CARBON DIOXIDE 22.6 mmol/L (21-32); CHLORIDE 109 mmol/L (98-107); CREATININE 0.7 mg/dL (0.6-1.3); GLUCOSE 107 mg/dL (74-106); POTASSIUM 4.6 mmol/L (3.5-5.1); SODIUM SERUM 139 mmol/L (136-145); UREA NITROGEN, BLOOD 16 mg/dL (7-18)
[2019-04-01 07:44] LABS: MAGNESIUM 1.9 mg/dL (1.8-2.4); PHOSPHORUS 3.1 mg/dL (2.5-4.9)
[2019-04-01] MEDS: MORPHINE SULFATE 2 MG/ML SYR IVP PRN ×2 (07:51→12:31)
[2019-04-01 08:00] VITALS: BP 132/55
--- NOTE | 2019-04-01 08:00 | NUR ---
Pt noted to be restless and grimacing. Asked if she is in pain, pt nodded her head but unable to describe or locate pain. Pt repositioned for comfort, turned on TV to redirect attention, administered morphine as ordered. Will cont to monitor.
[2019-04-01] MEDS: ASCORBIC ACID 500 MG/5 ML ORASYR GT SCH (09:05)
[2019-04-01] MEDS: PANTOPRAZOLE 40 MG INJ VIAL IVP SCH (09:05)
[2019-04-01] MEDS: acetaZOLAMIDE 250 MG TAB PO SCH ×2 (09:06→22:04)
[2019-04-01] MEDS: METOPROLOL SUCCINATE 50 MG TABER PO SCH (09:06)
[2019-04-01] MEDS: FERROUS SULFATE 300 MG/5 ML UDC GT SCH (09:06)
[2019-04-01] MEDS: LACTOBACILLUS RHAMNOSUS GG 1 EACH CAP PO SCH (09:07)
[2019-04-01] MEDS: APIXABAN 2.5 MG TAB PO SCH ×2 (09:22→22:07)
--- NOTE | 2019-04-01 10:12 | NUR ---
Pt asleep at this time, respirations even & nonlabored on trach to vent, no grimacing/restlessness. GT intact with ongoing Jevity 1.2 @ 55 ml/h. Antunez cath intact & draining clear yellow urine. Rectal bag intact without output at this time. Call light within reach.
[2019-04-01 12:00] VITALS: BP 117/62
--- NOTE | 2019-04-01 12:00 | NUR ---
Oral care provided. Pt able to hold oral swabs with left and perform oral care with min verbal cues.
--- NOTE | 2019-04-01 13:00 | NUR ---
Right lower leg hydrocolloid dressing clean, dry, and intact. Pt resting in bed, no signs of distress, respirations even & nonlabored on trach to vent. Call light within reach.
[2019-04-01 16:00] VITALS: BP 108/54
--- NOTE | 2019-04-01 16:00 | NUR ---
Pt performed oral care with min verbal cues. No signs of distress. Respirations even & nonlabored. Trach to vent in place.
[2019-04-01] MEDS: DIGOXIN 0.125 MG TAB PO SCH (17:53)
[2019-04-01] MEDS: VANCOMYCIN 1,000 MG in DEXTROSE 5% 250 ML IV SCH (18:40)
[2019-04-01] MEDS: LORazepam 2 MG/ML VIAL IM/IVP PRN (18:45)
--- NOTE | 2019-04-01 18:45 | NUR ---
Pt restless and moving around in bed. SaO2 96% trach to vent in place. Asked pt if she had pain, pt shook head side to side. Repositioned for comfort but cont to be restless. Lorazepam administered IVP.
--- NOTE | 2019-04-01 19:10 | NUR ---
Report given to pm nurse Saundra.
--- NOTE | 2019-04-01 19:15 | NUR ---
RECEIVED PT IN STABLE CONDITION FROM AM NURSE FOR CONTINUITY OF CARE. PT AWAKE,ALERT AND ORIENTED X1-2. SMILING WHEN ASSESSED . NON VERBAL. ON TRACH TO VENT O2 SAT 95%. NO RESPIRATORY DISTRESS NOTED AT THIS TIME. ON TELE MONITOR- A FIB. BEDREST. WITH IVF INFUSING WELL ON THE RT FEMORAL CENTRAL LINE TRIPLE LUMEN. GT FEEDING ALSO INFUSING WITH NO RESIDUAL NOTED. ANGLIN CATHETER IN PLACED WITH CLEAR YELLOW URINE OUTPUT. RECTAL TUBE ,NO STOOL NOTED. BED ON LOW POSITION. FREQ ROUNDS NEEDED. SIDE RAILS UP X2 AND PADDED . CALL LIGHT PLACED WITHIN EASY REACH. ON CONTACT ISOLATION. WILL CONTINUE TO MONITOR.
--- NOTE | 2019-04-01 19:30 | NUR ---
PT PULSE OXIMETER PROBE OUT. PUT A NEW ONE. PT ALLOWED. O2 SAT 95%.
[2019-04-01] MEDS: TOBRAMYCIN IV SCH (19:58)
[2019-04-01] MEDS: NACL 0.9% IV SCH (19:58)
[2019-04-01 20:00] VITALS: BP 119/69
--- NOTE | 2019-04-01 20:00 | NUR ---
MADE ROUNDS. MADE ROUNDS. PT PLEASANT ,SMILING. TOBRAMYCIN IVPB DUE GIVEN. NO S/S OF ANY DISCOMFORT NOTED. NO DISTRESS NOTED ALSO.
--- NOTE | 2019-04-01 22:00 | NUR ---
NIGHT DUE MEDS GIVEN PER GT. TOLERATED WELL. REPOSITIONED FOR COMFORT.
[2019-04-01] MEDS: FLUCONAZOLE 200 MG/NS PREMIX 100 ML IV SCH (22:04)
[2019-04-02] VITALS: BP 112/53
--- NOTE | 2019-04-02 00:30 | NUR ---
PT ASLEEP. NO S/S OF ANY DISTRESS NOTED. WILL CONTINUE TO MONITOR.
--- NOTE | 2019-04-02 01:40 | NUR ---
PULSE OXIMETER OUT AGAIN. EXPLAINED TO PT THE NEED TO HAVE IT CONNECTED BUT SHE REFUSED. PT NOT IN RESPIRATORY DISTRESS. WILL TRY LATER.
--- NOTE | 2019-04-02 02:30 | NUR ---
MADE ROUNDS. PT SMILING. ABLE TO PUT BACK A NEW PULSE OXIMETER PROBE. O2 SAT 97%.
[2019-04-02 03:43] VITALS: BP 152/80
[2019-04-02] MEDS: MORPHINE SULFATE 2 MG/ML SYR IVP PRN ×4 (03:44→19:37)
--- NOTE | 2019-04-02 03:44 | NUR ---
VENT HAS BEEN ALARMING. CHECKED ON PT. TRACH IS A LITTLE BIT PULLED OUT. PAGED RT, CAME AND ABLE TO FIX THE TRACH AND SUCTIONED AFTER. O2 SAT 97%. BUT PT STILL RESTLESS, GRIMACING AND MOANING . ASKED IF IN PAIN AND NODDED. MORPHINE 2 MG IVP GIVEN . WILL CONTINUE TO MONITOR.
--- NOTE | 2019-04-02 04:30 | NUR ---
PT ASLEEP AND HOLDING THE PULSE OXIMETRY PROBE. NO S/S OF ANY RESPIRATORY DISTRESS.REFUSED TO PUT IT BACK. PT HR ON MONITOR WAS CHECKED 89, CONTROLLED A FIB. WILL CONTINUE TO MONITOR.
[2019-04-02] MEDS: carBAMazepine 200 MG TAB GT SCH ×3 (05:24→20:53)
--- NOTE | 2019-04-02 06:30 | NUR ---
GT FEEDING WAS CHANGED @0530. BUT FEEDING PUMP HAS BEEN BEEPING. CHANGED TO A NEW FEEDING TUBE AND NOW ITS RUNNING WELL.
[2019-04-02 06:59] LABS: BASOPHILS % (AUTO) 0.2 % (0.0-2.0); EOSINOPHILS # (AUTO) 0.5 K/uL (0-0.4); HEMATOCRIT 23.9 % (36-48); HEMOGLOBIN 7.6 g/dL (12.0-16.0); LYMPHOCYTES # (AUTO) 0.7 K/uL (2.5-16.5); MEAN CORPUSCULAR HEMOGLOBIN 33 pg (27-31); MEAN CORPUSCULAR HGB CONC 32 g/dL (33-37); MEAN CORPUSCULAR VOLUME 103.8 fL (80-94); MONOCYTES # (AUTO) 0.6 K/uL (0.8-1.0); NEUTROPHILS # (AUTO) 5.3 K/uL (1.8-7.7); PLATELET COUNT (AUTO) 224 K/uL (140-450); RED BLOOD CELL COUNT(AUTO) 2.31 MIL/uL (4.20-5.40); WHITE BLOOD COUNT (AUTO) 7.2 K/uL (4.8-10.8)
--- NOTE | 2019-04-02 07:08 | NUR ---
ENDORSED PT IN STABLE CONDITION TO AM NURSE.
--- NOTE | 2019-04-02 07:15 | NUR ---
Received report from pm nurse Saundra. Pt currently resting in bed, awake, no signs of distress, respirations even & nonlabored on trach to vent (24%FiO2 TV425 R14 PEEP5). Antunez cath in place and draining clear yellow urine. Rectal bag in place, no output noted. GT intact with ongoing feeding Jevity 1.2 @ 55ml/h. HOB up at 30. Call light within reach.
[2019-04-02 07:17] LABS: ANION GAP 12.5 (8-16); CARBON DIOXIDE 21.2 mmol/L (21-32); CHLORIDE 110 mmol/L (98-107); CREATININE 0.7 mg/dL (0.6-1.3); GLUCOSE 115 mg/dL (74-106); POTASSIUM 4.7 mmol/L (3.5-5.1); SODIUM SERUM 139 mmol/L (136-145); UREA NITROGEN, BLOOD 19 mg/dL (7-18)
[2019-04-02 07:29] LABS: EOSINOPHILS % (AUTO) 7.5 % (0.0-4.0); LYMPHOCYTES % (AUTO) 10.2 % (20.5-51.1); NEUTROPHILS % (AUTO) 74.1 % (42.2-75.2)
--- NOTE | 2019-04-02 07:33 | NUR ---
REC'D PT ON [employer] VENT SETTING AC 14 VT425 PEEP 5 FIO2 24% ALARMS ON AND AUDIBLE AND AMBU BAG AT SIDE OF VENT AND VENT IS PLUGGED INTO RED OUTLET, SXN PT SMALL AMT OF WHITE SECRETIONS, B\S ARE CLEAR BILATERALLY, PT IS TRACH WITH PORTEX 8 PT IS SLEEPING
[2019-04-02 07:35] LABS: MAGNESIUM 1.8 mg/dL (1.8-2.4); PHOSPHORUS 3.5 mg/dL (2.5-4.9)
[2019-04-02] MEDS: NACL 0.9% 1,000 ML IV SCH (07:56)
[2019-04-02 08:00] VITALS: BP 152/90
[2019-04-02] MEDS: ASCORBIC ACID 500 MG/5 ML ORASYR GT SCH (08:44)
[2019-04-02] MEDS: PANTOPRAZOLE 40 MG INJ VIAL IVP SCH (08:44)
[2019-04-02] MEDS: FERROUS SULFATE 300 MG/5 ML UDC GT SCH (08:44)
[2019-04-02] MEDS: METOPROLOL SUCCINATE 50 MG TABER PO SCH (08:45)
[2019-04-02] MEDS: acetaZOLAMIDE 250 MG TAB PO SCH ×2 (08:45→20:54)
[2019-04-02] MEDS: LACTOBACILLUS RHAMNOSUS GG 1 EACH CAP PO SCH (08:45)
[2019-04-02] MEDS: HYDROCOLLOID DRESSING TP SCH (08:46)
[2019-04-02] MEDS: APIXABAN 2.5 MG TAB PO SCH ×2 (09:00→20:58)
--- NOTE | 2019-04-02 09:00 | NUR ---
Jhonny held d/t decreased H&H. Dr Machado notified and states he will review recommendations from case work aide.
[2019-04-02 12:00] VITALS: BP 145/95
--- NOTE | 2019-04-02 12:00 | NUR ---
Pt able to provide oral care with standby assist. No signs of distress, no c/o discomfort at this time. Trach to vent in place. GT intact with ongoing Jevity 1.2 @ 55ml/hr. Right femoral 3-lumen IV intact with ongoing NS @ 20ml/hr. Antunez cath in place & draining clear yellow urine. Rectal bag in place with no output. HOB up @ 30. Call light within reach.
[2019-04-02 16:00] VITALS: BP 104/52
[2019-04-02] MEDS ORDERED: SODIUM FERRIC GLUCONATE 125 MG in NACL 0.9% 100 ML IV SCH (16:00)
[2019-04-02] MEDS: DIGOXIN 0.125 MG TAB PO SCH (16:47)
--- NOTE | 2019-04-02 19:10 | NUR ---
received pt from from day shift on ac 14,425,+5,24%. vent plugged into red outlet. bmv at head of bed. alarms audible and working. trach is secured with a trach tie. pt is asleep. did not sx patient. will cont to monitor
[2019-04-02 19:30] VITALS: BP 128/76
--- NOTE | 2019-04-02 19:30 | NUR ---
RECEIVED PT AWAKE, ALERT,AND ORIENTED X 2, NONVERBAL, TRACH TO VENT O2 SAT 96%, BEDBOUND, NO DISTRESS NOTED AT THIS TIME,IVF INFUSING ON RT FEMORAL CENTRAL LINE TRIPLE LUMEN, INTACT AND PATENT, JEVITY 1.2 @55 INFUSING VIA G-TUBE,FLUSH WATER@130 CC EVERY 4 HRS, ANGLIN IN PLACE WITH YELLOW CLEAR URINE DRAINING TO BAG, RECTAL TUBE NO BM NOTED, VITAL SIGN WNL, A-FIB ON CHEERLEADING COACH ,REPOSITIONED FOR COMFORT, CONTINUE TO MONITOR PT
[2019-04-02] MEDS: VANCOMYCIN 1,000 MG in DEXTROSE 5% 250 ML IV SCH (19:49)
[2019-04-02] MEDS: TOBRAMYCIN IV SCH (20:54)
[2019-04-02] MEDS: NACL 0.9% IV SCH (20:54)
[2019-04-02] MEDS: FLUCONAZOLE 200 MG/NS PREMIX 100 ML IV SCH (20:55)
--- NOTE | 2019-04-02 21:00 | NUR ---
SCHEDULED MEDS GIVEN VIA G-TUBE ,NO RESIDUAL NOTED, FLUSHED WITH WATER, PT SLEEPING AT THIS TIME
--- NOTE | 2019-04-02 23:08 | NUR ---
ROUTINE VENT CHECK. PT IS AWAKE AND ALERT. TRACH IS INTACT. PT WILL NOT LET ME SX HER. WILL CONT. TO MONITOR
[2019-04-03] VITALS: BP 148/83
--- NOTE | 2019-04-03 | NUR ---
PT SLEEPING ,NO SIGN OF DISCOMFORT NOTED AT THIS TIME ,RT LOWER LEG WOUND ,CLEANED WITH NS AND COVERED WITH HYDROCOLLOID DRESSING, PICTURE TAKEN, REPOSITIONED FOR COMFORT,CALL LIGHT ON REACH.
--- NOTE | 2019-04-03 01:08 | NUR ---
routine vent check. sx moderate amount of thick white secretions. will cont to monitor
--- NOTE | 2019-04-03 02:30 | NUR ---
PT ASLEEP,EASILY AROUSED, NO S/S OF RESPIRATORY DISTRESS NOTED, REPOSITIONED FOR COMFORT.
--- NOTE | 2019-04-03 04:30 | NUR ---
AM CARE GIVEN , REFUSED ORAL CARE ,PT AGITATED ,UNCOOPERATIVE ,VITAL SIGN WNL
[2019-04-03] MEDS: carBAMazepine 200 MG TAB GT SCH ×3 (05:04→20:39)
--- NOTE | 2019-04-03 05:30 | NUR ---
PT REMAINS ON DOCUMENTED SETTING. VENT PLUGGED INTO RED OUTLET. ALARMS AUDIBLE AND WORKING. BMV AT HEAD OF BED. TRACH IS INTACT AND SECURED WITH A TRACH TIE. TRACH CARE IS COMPLETED. NO RESPIRATORY DISTRESS NOTED. PT REMAINS CALM AND RELAX. RN RUBEN AT BEDSIDE.
[2019-04-03] MEDS: NACL 0.9% 1,000 ML IV SCH ×2 (05:35→22:28)
[2019-04-03 05:59] LABS: BASOPHILS % (AUTO) 0.2 % (0.0-2.0); EOSINOPHILS # (AUTO) 0.6 K/uL (0-0.4); EOSINOPHILS % (AUTO) 6.6 % (0.0-4.0); HEMATOCRIT 26.3 % (36-48); HEMOGLOBIN 8.4 g/dL (12.0-16.0); LYMPHOCYTES # (AUTO) 0.8 K/uL (2.5-16.5); LYMPHOCYTES % (AUTO) 8.6 % (20.5-51.1); MEAN CORPUSCULAR HEMOGLOBIN 33 pg (27-31); MEAN CORPUSCULAR HGB CONC 32 g/dL (33-37); MEAN CORPUSCULAR VOLUME 104.1 fL (80-94); MONOCYTES # (AUTO) 0.8 K/uL (0.8-1.0); MONOCYTES % (AUTO) 9.1 % (1.7-9.3); NEUTROPHILS # (AUTO) 6.6 K/uL (1.8-7.7); NEUTROPHILS % (AUTO) 75.5 % (42.2-75.2); PLATELET COUNT (AUTO) 258 K/uL (140-450); RED BLOOD CELL COUNT(AUTO) 2.53 MIL/uL (4.20-5.40); RED CELL DISTRIBUTION WIDTH 15.2 % (11.6-13.7); WHITE BLOOD COUNT (AUTO) 8.8 K/uL (4.8-10.8)
[2019-04-03 06:00] LABS: ANION GAP 11.1 (8-16); CARBON DIOXIDE 23.6 mmol/L (21-32); CHLORIDE 108 mmol/L (98-107); CREATININE 0.7 mg/dL (0.6-1.3); GLUCOSE 114 mg/dL (74-106); POTASSIUM 4.7 mmol/L (3.5-5.1); SODIUM SERUM 138 mmol/L (136-145); UREA NITROGEN, BLOOD 20 mg/dL (7-18)
--- NOTE | 2019-04-03 06:00 | NUR ---
DRESSING ON THE RT FEMORAL TRIPLE LUMEN CHANGED WITH ASEPTIC TECHNIQUE, PT TOLERATED WELL
[2019-04-03 06:04] LABS: MAGNESIUM 1.7 mg/dL (1.8-2.4); PHOSPHORUS 3.6 mg/dL (2.5-4.9)
--- NOTE | 2019-04-03 06:57 | NUR ---
PT SLEPT 6-7 HRS ON AND OFF, NO SIGN OF DISCOMFORT NOTED WILL ENDORSE TO DAY NURSE.
--- NOTE | 2019-04-03 07:31 | NUR ---
SHIFT REPORT RECEIVED FROM CREDIT ANALYSIS MANAGER NURSE. PT IS IN BED AT THIS TIME. NO DISTRESS NOTED. PT IS AWAKE. CALL LIGHT IN REACH.
[2019-04-03 08:00] VITALS: BP 136/65
[2019-04-03] MEDS ORDERED: ASCORBIC ACID 500 MG/5 ML ORASYR GT SCH (09:00)
[2019-04-03] MEDS: ASCORBIC ACID 500 MG/5 ML ORASYR GT SCH (09:01)
[2019-04-03] MEDS: PANTOPRAZOLE 40 MG INJ VIAL IVP SCH (09:01)
[2019-04-03] MEDS: METOPROLOL SUCCINATE 50 MG TABER PO SCH (09:02)
[2019-04-03] MEDS: LACTOBACILLUS RHAMNOSUS GG 1 EACH CAP PO SCH (09:02)
[2019-04-03] MEDS: FERROUS SULFATE 300 MG/5 ML UDC GT SCH (09:02)
[2019-04-03] MEDS: APIXABAN 2.5 MG TAB PO SCH ×2 (09:03→20:40)
[2019-04-03] MEDS: acetaZOLAMIDE 250 MG TAB PO SCH ×2 (09:15→20:41)
--- NOTE | 2019-04-03 10:50 | NUR ---
PT IS RESTING IN BED. NO DISTRESS NOTED. NO COMPLAINS OF PAIN. SAFETY MEASURES IN CHECK. CALL LIGHT IN REACH.
[2019-04-03] MEDS ORDERED: MAGNESIUM OXIDE 400 MG TAB PO SCH (11:00)
[2019-04-03 12:00] VITALS: BP 147/72
--- NOTE | 2019-04-03 13:57 | NUR ---
PT IS RESTING IN BED. NO DISTRESS NOTED. CALL LIGHT IN REACH.
--- NOTE | 2019-04-03 15:04 | NUR ---
PT IS IN BED. NO DISTRESS NOTED. SAFETY MEASURES IN CHECK. VENT PLACEMENT CHECKED. CALL LIGHT IN REACH.
[2019-04-03 16:00] VITALS: BP 112/77
--- NOTE | 2019-04-03 17:29 | NUR ---
PT IS LYING IN BED. PT IS ALERT AND RESPONDS WHEN CALLED. NO DISTRESS NOTED. CALL LIGHT WITHIN REACH.
--- NOTE | 2019-04-03 17:31 | NUR ---
04/03/19 RD FOLLOW UP COMPLETED PLEASE REFER TO NUTRITION ASSESSMENT UNDER CARE ACTIVITY FOR ESTIMATED NUTRITIONAL NEEDS. 1. CONTINUE JEVITY 1.2 @ 55 ML/HR -THIS WILL PROVIDE 1320 ML OF VOLUME, 1584 KCAL AND 73 GM OF PROTEIN WHICH MEETS 100% OF ESTIMATED NEEDS 2. CONTINUE FREE WATER FLUSH OF 130 ML Q6H 3. CONTINUE VITAMIN C FOR WOUND HEALING 4. RD TO FOLLOW-UP 2-3 DAYS, HIGH RISK -REVIEWED BY LYNN COX RD
[2019-04-03] MEDS: VANCOMYCIN 1,000 MG in DEXTROSE 5% 250 ML IV SCH (19:00)
--- NOTE | 2019-04-03 19:17 | NUR ---
VANCOMYCIN IV NOT GIVEN. LAB RESULTS AT 24.7.
--- NOTE | 2019-04-03 19:25 | NUR ---
RECEIVED FROM AM RN IN BED AWAKE AND ALERT. PT. UNABLE TO VERBALIZE NEEDS. CONFUSED. TOTAL CARE RT BEDBOUND. WITH RIGHT SIDED WEAKNESS RT CVA HX. GT FEEDING. NO N/V REPORTED. HOB UP 30 DEGREES F OR ASPIRATION PRECAUTION. ANGLIN CATHETER AND A RECTAL BAG IN PLACE. NEEDS WILL BE ANTICIPATED AND WILL BE MET THIS SHIFT. AFEBRILE. 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 TELEMETRY MONITORING.
--- NOTE | 2019-04-03 19:32 | NUR ---
SHIFT REPORT GIVEN TO MANAGER CORPORATE RESPONSIBILITY NURSE. PT IS IN BED IN STABLE CONDITION. CALL LIGHT IN REACH.
[2019-04-03 20:00] VITALS: BP 124/77
[2019-04-03] MEDS: NACL 0.9% IV SCH (20:28)
[2019-04-03] MEDS: TOBRAMYCIN IV SCH (20:28)
--- NOTE | 2019-04-03 20:39 | NUR ---
PT. BEING TURNED AT THIS TIME. PILLOW SUPPORT TO PRESSURE AREAS. HOB UP 30 DEGREES FOR ASPIRATION PRECAUTIONS. HEATING TECHNICIAN N/V NOTED. TELEMETRY MONITORING.
[2019-04-03] MEDS: FLUCONAZOLE 200 MG/NS PREMIX 100 ML IV SCH (20:56)
--- NOTE | 2019-04-03 23:20 | NUR ---
SLEEPING AT THIS TIME. TURNED TO SIDES Q2H. TOTAL CARE. TRACH TO VENT. SUCTIONED PRN. NO MUCUS ASPIRATED AT THIS TIME.
[2019-04-04] VITALS: BP 115/81
--- NOTE | 2019-04-04 01:24 | NUR ---
CHECKED ON PT. CHANGED GT FEEDING . TURNED TO SIDES Q 2H TOTAL CARE WITH PILLOW SUPPORT TO PRESSURE AREAS. BED ALARM ON. RESPIRATORY THERAPIST IN HERE TO CHECK ON PT. 02 SAT 100 %. TRACH TO VENT. HOB UP 30 DEGREES FOR ASPIRATION PRECAUTIONS. NO VOMITING NOTED.
--- NOTE | 2019-04-04 02:30 | NUR ---
PT. HOB UP 30 DEGREES FOR ASPIRATION PRECAUTIONS. NO VOMITING NOTED. CALL LIGHT WITH IN REACH.
[2019-04-04 04:00] VITALS: BP 132/60
[2019-04-04] MEDS: carBAMazepine 200 MG TAB GT SCH ×3 (05:08→20:31)
[2019-04-04 06:10] LABS: BASOPHILS % (AUTO) 0.1 % (0.0-2.0); EOSINOPHILS # (AUTO) 0.4 K/uL (0-0.4); EOSINOPHILS % (AUTO) 5.4 % (0.0-4.0); HEMATOCRIT 26.9 % (36-48); HEMOGLOBIN 8.7 g/dL (12.0-16.0); LYMPHOCYTES # (AUTO) 0.9 K/uL (2.5-16.5); LYMPHOCYTES % (AUTO) 10.7 % (20.5-51.1); MEAN CORPUSCULAR HEMOGLOBIN 33 pg (27-31); MEAN CORPUSCULAR HGB CONC 32 g/dL (33-37); MEAN CORPUSCULAR VOLUME 102.4 fL (80-94); MONOCYTES # (AUTO) 0.6 K/uL (0.8-1.0); MONOCYTES % (AUTO) 7.6 % (1.7-9.3); NEUTROPHILS # (AUTO) 6.2 K/uL (1.8-7.7); NEUTROPHILS % (AUTO) 76.2 % (42.2-75.2); PLATELET COUNT (AUTO) 274 K/uL (140-450); RED BLOOD CELL COUNT(AUTO) 2.62 MIL/uL (4.20-5.40); RED CELL DISTRIBUTION WIDTH 15.1 % (11.6-13.7); WHITE BLOOD COUNT (AUTO) 8.2 K/uL (4.8-10.8)
[2019-04-04 06:14] LABS: ANION GAP 13.1 (8-16); CARBON DIOXIDE 23.6 mmol/L (21-32); CHLORIDE 110 mmol/L (98-107); CREATININE 0.7 mg/dL (0.6-1.3); GLUCOSE 118 mg/dL (74-106); POTASSIUM 4.7 mmol/L (3.5-5.1); SODIUM SERUM 142 mmol/L (136-145); UREA NITROGEN, BLOOD 20 mg/dL (7-18)
[2019-04-04 06:18] LABS: MAGNESIUM 1.8 mg/dL (1.8-2.4); PHOSPHORUS 3.5 mg/dL (2.5-4.9)
--- NOTE | 2019-04-04 06:55 | NUR ---
SLEEPING AT THIS TIME. TURNED TO SIDES Q 2H BY CNAS AND ME. TOTAL CARE.
--- NOTE | 2019-04-04 07:20 | NUR ---
RECEIVED REPORT FROM METAL ROOFER NURSE. PATIENT LYING DOWN IN BED, AWAKE, APHASIC, CONTINUES TO PULL OUT VENT TUBE INTERMITTENTLY. SKIN COLOR PALE, HAS RLE WOUND, DRESSING DRY AND INTACT. RESPIRATIONS EVEN, UNLABORED, ON TRACH TO VENT WITH VENT SETTINGS FIO2:24%, VT:425, RATE:14, FLOW:30, PEEP:5, PMAX:60. ANGLIN CATHETER IN PLACE, IV SITE INTACT, PATENT, AND INFUSING IVF PER MD ORDERS. REVIEWED PLAN OF CARE WITH PATIENT. REINFORCEMENT NEEDED. SAFETY MEASURES IN PLACE, CALL LIGHT WITHIN REACH. WILL CONTINUE TO MONITOR.
[2019-04-04 08:00] VITALS: BP 144/70
[2019-04-04] MEDS: FERROUS SULFATE 300 MG/5 ML UDC GT SCH (09:26)
[2019-04-04] MEDS: PANTOPRAZOLE 40 MG INJ VIAL IVP SCH (09:26)
[2019-04-04] MEDS: ASCORBIC ACID 500 MG/5 ML ORASYR GT SCH (09:26)
[2019-04-04] MEDS: METOPROLOL SUCCINATE 50 MG TABER PO SCH (09:27)
[2019-04-04] MEDS: acetaZOLAMIDE 250 MG TAB PO SCH ×2 (09:27→20:31)
[2019-04-04] MEDS: LACTOBACILLUS RHAMNOSUS GG 1 EACH CAP PO SCH (09:27)
--- NOTE | 2019-04-04 09:43 | NUR ---
PATIENT LYING DOWN IN BED. NO DISTRESS NOTED. SCHEDULED MEDICATIONS DUE GIVEN. WILL CONTINUE TO MONITOR.
--- NOTE | 2019-04-04 11:00 | NUR ---
ASSISTED SEISMIC PROSPECTING SUPERVISOR IN CLEANING AND REPOSITIONING PATIENT. WILL CONTINUE OT MONITOR.
[2019-04-04] MEDS ORDERED: DEXT 5% / NACL 0.45% 500 ML IV SCH (11:15)
[2019-04-04 12:00] VITALS: BP 153/76
[2019-04-04] MEDS ORDERED: VANCOMYCIN 750 MG in DEXTROSE 5% 250 ML IV SCH (13:00)
--- NOTE | 2019-04-04 13:35 | NUR ---
PATIENT LYING DOWN IN BED. NO DISTRESS NOTED. SCHEDULED MEDICATIONS DUE GIVEN. WILL CONTINUE TO MONITOR.
[2019-04-04 16:00] VITALS: BP 121/56
[2019-04-04] MEDS ORDERED: METO25TA PO (17:20)
[2019-04-04] MEDS: DIGOXIN 0.125 MG TAB PO SCH (17:43)
--- NOTE | 2019-04-04 17:45 | NUR ---
PATIENT LYING DOWN IN BED, NO DISTRESS NOTED. SCHEDULED MEDICATIONS DUE GIVEN. WILL CONTINUE TO MONITOR.
--- NOTE | 2019-04-04 19:23 | NUR ---
GAVE REPORT TO SENIOR PHYSICAL THERAPIST NURSE FOR CONTINUITY OF CARE. PATIENT IN STABLE CONDITION.
--- NOTE | 2019-04-04 19:24 | NUR ---
RECEIVED BEDSIDE REPORT FROM DAY SHIFT NURSE WARD RN, PT STABLE, NO DISTRESS NOTED, CENTRAL LINE TO R FEMORAL TRIPLE LUMEN, PATENT, INTACT, INFUSING WELL, PT ON TRACH TO VENT, NO SOB NOTED, ANGLIN CATH IN PLACE, DRAINING YELLOW URINE, INITIAL ASSESSMENT DONE, ALL SAFETY PRECAUTION MET, CALL LIGHT WITHIN REACH, WILL CONTINUE TO MONITOR.
--- NOTE | 2019-04-04 19:26 | NUR ---
RECEIVED PATIENT TRACH TO VENT ON DOCUMENTED SETTINGS. VENT CHECK DONE. VENT PLUGGED INTO RED OUTLET WITH WHEELS LOCKED. VENT ALARMS ON AND AUDIBLE. AMBU BAG AT BEDSIDE. AIRWAY SECURE AND PATENT. SUCTIONED LARGE AMOUNT OF THICK, CREAMY YELLOW SECRETIONS. CONTINUOUS PULSE OX ON AND FUNCTIONING; ALARMS ON AND AUDIBLE. NO ACUTE RESPIRATORY DISTRESS NOTED AT THIS TIME. WILL CONTINUE TO MONITOR.
--- NOTE | 2019-04-04 19:50 | NUR ---
TOBRAMYCIN TROUGH TAKEN PT TOLERATED WELL, NO DISTRESS NOTED, CALL LIGHT WITHIN REACH.
[2019-04-04 20:00] VITALS: BP 129/55
[2019-04-04] MEDS: NACL 0.9% IV SCH (20:26)
[2019-04-04] MEDS: TOBRAMYCIN IV SCH (20:26)
--- NOTE | 2019-04-04 20:26 | NUR ---
DUE MEDICATION TOBRAMYCIN ADMINISTERED, PT TOLERATED WELL, NO DISTRESS NOTED, CALL LIGHT WITHIN REACH, WILL CONTINUE TO MONITOR.
--- NOTE | 2019-04-04 21:40 | NUR ---
TOBRAMYCIN PEAK TAKEN, BLOOD SENT TO LAB. PT TOLERATED WELL, NO DISTRESS NOTED, CALL LIGHT WITHIN REACH, WILL CONTINUE TO MONITOR.
[2019-04-05] VITALS: BP 134/71
--- NOTE | 2019-04-05 00:02 | NUR ---
PT SLEEPING, NO DISTRESS NOTED, CALL LIGHT WITHIN REACH, WILL CONTINUE TO MONITOR.
--- NOTE | 2019-04-05 01:55 | NUR ---
CHANGED AND REPOSITIONED PT, PT DID A BM, TOLERATED WELL, NO DISTRESS NOTED, CALL LIGHT WITHIN REACH, WILL CONTINUE TO MONITOR.
[2019-04-05 04:00] VITALS: BP 96/59
--- NOTE | 2019-04-05 04:14 | NUR ---
PT SLEEPING, NO DISTRESS NOTED, CALL LIGHT WITHIN REACH, WILL CONTINUE TO MONITOR.
[2019-04-05] MEDS: carBAMazepine 200 MG TAB GT SCH ×2 (04:42→13:37)
--- NOTE | 2019-04-05 04:42 | NUR ---
DUE MEDICATION ADMINISTERED, PT TOLERATED WELL, NO DISTRESS NOTED, CALL LIGHT WITHIN REACH, WILL CONTINUE TO MONITOR.
[2019-04-05 06:15] LABS: BASOPHILS % (AUTO) 0.2 % (0.0-2.0); EOSINOPHILS # (AUTO) 0.6 K/uL (0-0.4); EOSINOPHILS % (AUTO) 9.3 % (0.0-4.0); HEMATOCRIT 25.2 % (36-48); HEMOGLOBIN 8.2 g/dL (12.0-16.0); LYMPHOCYTES # (AUTO) 1.1 K/uL (2.5-16.5); LYMPHOCYTES % (AUTO) 16.8 % (20.5-51.1); MEAN CORPUSCULAR HEMOGLOBIN 33 pg (27-31); MEAN CORPUSCULAR HGB CONC 32 g/dL (33-37); MEAN CORPUSCULAR VOLUME 103.3 fL (80-94); MONOCYTES # (AUTO) 0.5 K/uL (0.8-1.0); MONOCYTES % (AUTO) 7.5 % (1.7-9.3); NEUTROPHILS # (AUTO) 4.5 K/uL (1.8-7.7); NEUTROPHILS % (AUTO) 66.2 % (42.2-75.2); PLATELET COUNT (AUTO) 270 K/uL (140-450); RED BLOOD CELL COUNT(AUTO) 2.44 MIL/uL (4.20-5.40); RED CELL DISTRIBUTION WIDTH 15.2 % (11.6-13.7); WHITE BLOOD COUNT (AUTO) 6.8 K/uL (4.8-10.8)
[2019-04-05 06:39] LABS: ANION GAP 11.6 (8-16); CARBON DIOXIDE 22.9 mmol/L (21-32); CHLORIDE 108 mmol/L (98-107); CREATININE 0.7 mg/dL (0.6-1.3); GLUCOSE 82 mg/dL (74-106); POTASSIUM 4.5 mmol/L (3.5-5.1); SODIUM SERUM 138 mmol/L (136-145); UREA NITROGEN, BLOOD 19 mg/dL (7-18)
[2019-04-05 06:47] LABS: MAGNESIUM 1.9 mg/dL (1.8-2.4); PHOSPHORUS 3.6 mg/dL (2.5-4.9)
--- NOTE | 2019-04-05 07:26 | NUR ---
ENDORSED PT TO DAY SHIFT NURSE JOHN DE LA TORRE, PT STABLE, NO DISTRESS NOTED, CALL LIGHT WITHIN REACH.
--- NOTE | 2019-04-05 07:31 | NUR ---
RECEIVED BEDSIDE REPORT FROM MACHINIST SUPERVISOR OUTSIDE RN FOR CONTINUITY OF CARE. PT IS AAOX2, STABLE, NO DISTRESS NOTED. CENTRAL LINE TO R FEMORAL DOUBLE LUMEN, PATENT, INTACT, INFUSING WELL. PT ON TRACH TO VENT, NO SOB NOTED. ANGLIN CATH IN PLACE, DRAINING YELLOW URINE. WOUND TO RIGHT TIBIA NOTED. WILL CHANGE DRESSING TODAY. INITIAL ASSESSMENT DONE. EXPLAINED POC TO PT BUT PT DID NOT VERBALIZE UNDERSTANDING. ALL SAFETY PRECAUTIONS MET. CALL LIGHT WITHIN REACH. WILL MONITOR PT CLOSELY.
[2019-04-05 08:00] VITALS: BP 115/78
[2019-04-05] MEDS: FERROUS SULFATE 300 MG/5 ML UDC GT SCH ×2 (08:00→09:20)
--- NOTE | 2019-04-05 08:23 | NUR ---
RECEIVED ON A [employer] R860 VENTILATOR WITH COMPRESSOR ON PLUGGED INTO RED OUTLET TOLERATING WELL WITHOUT ADVERSE REACTIONS NOTED TO A PORTEX DCT #8 AIRWAY SECURED WITH A JERI TRACH TIE CUFF PRESSURE CHECKED NOTED AMBU BAG AT BEDSIDE LOC AWAKE AND ALERT GOOD EQUAL CHEST RISE DEEP TRACHEAL SUCTION FOR MODERATE THIN YELLOWS SECRETIONS AIRWAY PATENT
[2019-04-05] MEDS: acetaZOLAMIDE 250 MG TAB PO SCH ×2 (09:00→09:21)
[2019-04-05] MEDS: LACTOBACILLUS RHAMNOSUS GG 1 EACH CAP PO SCH ×2 (09:00→09:21)
[2019-04-05] MEDS: ASCORBIC ACID 500 MG/5 ML ORASYR GT SCH ×2 (09:00→09:20)
[2019-04-05] MEDS: METOPROLOL 25 MG TAB GT SCH ×2 (09:00→09:21)
[2019-04-05] MEDS ORDERED: NACL 0.9% 1,000 ML IV SCH (09:15)
[2019-04-05] MEDS: PANTOPRAZOLE 40 MG INJ VIAL IVP SCH (09:20)
[2019-04-05] MEDS: HYDROCOLLOID DRESSING TP SCH (09:22)
--- NOTE | 2019-04-05 09:45 | NUR ---
PT REFUSING MORNING MEDS AT THIS TIME. PT'S SON IS AT BEDSIDE. I ASKED HIM TO HELP ME WITH ADMINISTERING MEDS BUT SON STATED THAT HIS MOM (THE PT) CAN REFUSE IF SHE WANTS. DID ADMINISTER PROTONIX THROUGH IV. WILL TRY ADMINISTRATION OF MEDS AGAIN LATER.
--- NOTE | 2019-04-05 09:51 | NUR ---
NO SON NOTED GOOD CHEST RISE DEEP TRACHEAL SUCTION FOR MODERATE SEMI THICK PALE YELLOW SECRETIONS AIRWAY PATENT Addendum: 04/05/19 at 1133 by David Jimenez RT SON = SOB
[2019-04-05 11:19] VITALS: BP 97/53
--- NOTE | 2019-04-05 11:19 | NUR ---
STABLE EQUAL CHEST RISE DEEP TRACHEAL SUCTION FOR MODERATE THIN PALE YELLOW SECRETIONS AIRWAY PATENT
--- NOTE | 2019-04-05 11:32 | NUR ---
PT ASLEEP. ALL NEEDS MET. PT WAS PULLING OUT TRACH EARLIER. WILL KEEP CLOSE EYE ON PT. PT ONLY PULLS AT TRACH WHEN CARE IS GIVEN. WILL GIVE PT PERIODS OF QUIET. ALL SAFETY MEASURES IN PLACE.
[2019-04-05] MEDS ORDERED: DIGO0.122 PO (11:49)
[2019-04-05 12:00] VITALS: BP 97/53
--- NOTE | 2019-04-05 13:45 | NUR ---
PT ASLEEP. ALL NEEDS MET.
--- NOTE | 2019-04-05 15:52 | NUR ---
NO PULMONARY DISTRESS NOTED EQUAL CHEST RISE DEEP TRACHEAL SUCTION FOR MODERATE THIN PALE YELLOW SECRETIONS AIRWAY PATENT
[2019-04-05 16:00] VITALS: BP 138/82
--- NOTE | 2019-04-05 16:50 | NUR ---
NO DISTRESS NOTED GOOD CHEST RISE DEEP TRACHEAL SUCTION FOR SMALL THIN PALE TELLOW SECRETIONS AIRWAY PATENT
--- NOTE | 2019-04-05 17:05 | NUR ---
PT DISCHARGED BACK TO [facility] FOR CONTINUITY OF CARE. PT DISCHARGE PAPERWORK SENT WITH PT. PER RESIDENT DR PT TO KEEP ANGLIN IN FOR CONTINUITY OF CARE. PT CENTRAL LINE REMOVED WITH TIP INTACT. PT HAD NO PERSONAL BELONGINGS WITH HER. CALLED [facility] AND GAVE REPORT TO GIRMA CASTANEDA ACUTE NURSING PILOT TEACHER. PT LEFT IN STABLE CONDITION WITH [facility] FOR TRACH TO VENT DEPENDENCE.
== END 2019-04-05 17:10 | DRG 870 ==
LOC: MED 09:11 → MIC 14:11 → MTU 03-30 07:00
PROVIDERS: ADMIT General Practice; ATTEND General Practice
PROC: 5A1955Z Respiratory Ventilation, Greater than 96 Consecutive Hours (ICD-10-PCS; principal; 2019-03-26)
PROC: 06HY33Z Insertion of Infusion Device into Lower Vein, Percutaneous Approach (ICD-10-PCS; 2019-03-26)
PROC: B54BZZA Ultrasonography of Right Lower Extremity Veins, Guidance (ICD-10-PCS; 2019-03-26)
DX: A41.9 Sepsis, unspecified organism (principal); J69.0 Pneumonitis due to inhalation of food and vomit; R65.21 Severe sepsis with septic shock; I50.43 Acute on chronic combined systolic (congestive) and diastolic (congestive) heart failure; J96.22 Acute and chronic respiratory failure with hypercapnia; E43 Unspecified severe protein-calorie malnutrition; J96.21 Acute and chronic respiratory failure with hypoxia; B37.49 Other urogenital candidiasis; G93.40 Encephalopathy, unspecified; I48.20 Chronic atrial fibrillation, unspecified; L97.919 Non-pressure chronic ulcer of unspecified part of right lower leg with unspecified severity; I69.351 Hemiplegia and hemiparesis following cerebral infarction affecting right dominant side; Z99.11 Dependence on respirator [ventilator] status; D50.9 Iron deficiency anemia, unspecified; D63.8 Anemia in other chronic diseases classified elsewhere; E03.9 Hypothyroidism, unspecified; E87.5 Hyperkalemia; F41.9 Anxiety disorder, unspecified; G40.909 Epilepsy, unspecified, not intractable, without status epilepticus; I11.0 Hypertensive heart disease with heart failure; K21.9 Gastro-esophageal reflux disease without esophagitis; G20 Parkinson's disease; F02.80 Dementia in other diseases classified elsewhere, unspecified severity, without behavioral disturbance, psychotic disturbance, mood disturbance, and anxiety; R13.10 Dysphagia, unspecified; B95.62 Methicillin resistant Staphylococcus aureus infection as the cause of diseases classified elsewhere; Z68.20 Body mass index [BMI] 20.0-20.9, adult; Z87.81 Personal history of (healed) traumatic fracture; Z88.0 Allergy status to penicillin; Z93.1 Gastrostomy status; Z88.8 Allergy status to other drugs, medicaments and biological substances; Z79.899 Other long term (current) drug therapy; Z74.01 Bed confinement status; Z93.0 Tracheostomy status
CPT/HCPCS: 36415; 36556; 36600; 70450; 71045; 80048; 80053; 80156; 80162; 80200; 80202; 81001; 82140; 82150; 82272; 82607; 82728; 82746; 82803; 82948; 83036; 83540; 83605; 83615; 83690; 83735; 83880; 84100; 84132; 84436; 84443; 84484; 85025; 85045; 85610; 85730; 87040; 87070; 87081; 87086; 87186; 87205; 87804; 89220; 93005; 94002; 94003; 96361; 96365; 96366; 96375; 97110; 97161-GP; 97530; 99291; C1751; C9113; J1160; J1450; J1956; J2060; J2270; J2543; J2916; J3260; J3370; J3475; J3490; J7030; J7042; J7060; Q0092

== ENCOUNTER 2019-05-30 11:46 | Inpatient (IN) | payer OTHER, MEDICAID ==
[~2019-05-30] VITALS: Ht 162.6 cm; Wt 72.6 kg
[2019-05-30] VITALS (10 sets, daily range): BP systolic 95–155; BP diastolic 40–72
[~2019-05-30 11:46] MED LIST: APIX5TAB PO; ASCO-770 GT; CARB200T4 PO; DIA250 PO; DIGO0.122 PO; DOCU-299 PO; LANS15EC31 GT; LORA-476 PO; METO25TA PO
--- NOTE | 2019-05-30 11:46 | NUR ---
Patient BIBA ALS from [facility] [place], transferred to bed 1. RN and RT evaluating patient at bedside.
--- NOTE | 2019-05-30 11:50 | NUR ---
RECIEVED PT FROM [facility]. PLACED ON VENTILATOR, SETTING AC/VC VT 425, RR 14, +5, 40%. AMBU BAG PRESENT AT BEDSIDE. ALARMS ON AND FUNCTIONING. BREATH SOUNDS COURSE PRIOR TO SUCTIONING. SUCTIONED THICK YELLOW SECRETIONS.
--- NOTE | 2019-05-30 11:58 | NUR ---
BIBA FROM [facility] FOR ABNORMAL LABS BUN:64 CL: 113 POTASSIUM: 5.9 CHLORIDE: 78 XRAY RESULTS FROM [facility] SHOW MODERATE BILTERAL PLEURAL EFFUSION PT HAS GENERALIZED EDEMA TO BODY ABDOMEN LARGE AND ROUND, HARD, GTUBE PRESENT PMH- CHRONIC RESP FAILURE, TRACH TO VENT, AFIB, HF, ANEMIA, ANXIETY, CVA R HEMIPLEGIA, SEIZURE, DUSPHAGIA, HTN, GTUBE, ANGLIN PT NONAMBULATORY, MOVES EYES TO VOICE, UNCOMPRHENSIVE SPEECH, DOESNT FOLLOW COMMANDS VS STABLE AT THIS TIME Addendum: 05/30/19 at 1324 by [email or web address] NA 113
--- NOTE | 2019-05-30 12:17 | NUR ---
PT HAS 24 G IV TO L FOOT PRESENT UPON ARRIVAL TO ER IV PATENT WITH BLOOD RETURN
[2019-05-30 12:41] LABS: BASOPHILS % (AUTO) 0.1 % (0.0-2.0); EOSINOPHILS % (AUTO) 0.3 % (0.0-4.0); HEMATOCRIT 21.6 % (36-48); HEMOGLOBIN 7.3 g/dL (12.0-16.0); LYMPHOCYTES # (AUTO) 0.8 K/uL (2.5-16.5); LYMPHOCYTES % (AUTO) 8.8 % (20.5-51.1); MEAN CORPUSCULAR HEMOGLOBIN 35 pg (27-31); MEAN CORPUSCULAR HGB CONC 34 g/dL (33-37); MEAN CORPUSCULAR VOLUME 104.2 fL (80-94); MONOCYTES # (AUTO) 0.7 K/uL (0.8-1.0); MONOCYTES % (AUTO) 8.1 % (1.7-9.3); NEUTROPHILS # (AUTO) 7.6 K/uL (1.8-7.7); NEUTROPHILS % (AUTO) 82.7 % (42.2-75.2); PLATELET COUNT (AUTO) 195 K/uL (140-450); RED BLOOD CELL COUNT(AUTO) 2.07 MIL/uL (4.20-5.40); WHITE BLOOD COUNT (AUTO) 9.1 K/uL (4.8-10.8)
--- NOTE | 2019-05-30 12:47 | NUR ---
# 16 FR Anglin catheter with 10 ml utilizing sterile technique. Immediate return of 2 ml CLOUDY urine noted. Bedside drainage bag placed below level of bladder. Urine sample collected and sent to lab. Pt tolerated procedure WELL. ANGLIN CATH REMOVED THAT WAS PRESENT UPON ARRIVAL TO ER, 10 ML REMOVED
--- NOTE | 2019-05-30 12:55 | NUR ---
XRAY AT BEDSIDE
--- NOTE | 2019-05-30 13:03 | NUR ---
SWITCHED PT TO PRESSURE CONTROL. ACKNOWLEDGED BY DR. CORTEZ. SETTINGS: AC/PC PINSP:30,RR16,+5, 40%, Ti 1.0
--- NOTE | 2019-05-30 13:05 | NUR ---
CALLED PTS ALEJANDRA DAWN AND GAVE UPDATE [phone]
[2019-05-30 13:06] LABS: ALBUMIN 2.8 g/dL (3.4-5.0); ANION GAP 8.7 (8-16); ASPARTATE AMINOTRANSFERASE 48 U/L (15-37); CARBON DIOXIDE 31.1 mmol/L (21-32); CHLORIDE 80 mmol/L (98-107); CREATININE 1.1 mg/dL (0.6-1.3); GLUCOSE 131 mg/dL (74-106); POTASSIUM 5.8 mmol/L (3.5-5.1); TOTAL BILIRUBIN 0.1 mg/dL (0.0-1.0)
[2019-05-30 13:10] LABS: SODIUM SERUM 114 mmol/L (136-145); UREA NITROGEN, BLOOD 65 mg/dL (7-18)
--- NOTE | 2019-05-30 13:13 | NUR ---
CLOSED WOUND PRESENT TO PTS R LOWER EXTREMITY, PICTURES TAKEN
[2019-05-30] MEDS ORDERED: ASCO500T45 PO (13:38)
[2019-05-30] MEDS ORDERED: NACL 0.9% 1,000 ML IV SCH (13:51)
[2019-05-30] MEDS ORDERED: LORazepam 2 MG/ML VIAL IM/IVP PRN (13:55)
[2019-05-30] MEDS ORDERED: DOCUSATE SODIUM 100 MG GELCAP PO PRN (13:55)
[2019-05-30] MEDS ORDERED: MORPHINE SULFATE 2 MG/ML SYR IVP PRN (13:55)
[2019-05-30] MEDS ORDERED: HYDROcodone/APAP 5/325 MG 1 TAB TAB PO PRN (13:55)
[2019-05-30] MEDS ORDERED: ONDANSETRON 4 MG/2 ML VIAL IM/IVP PRN (13:55)
[2019-05-30] MEDS ORDERED: ACETAMINOPHEN 325 MG TAB PO PRN (13:55)
[2019-05-30] MEDS ORDERED: ZOLPIDEM 5 MG TAB PO PRN (13:55)
--- NOTE | 2019-05-30 14:08 | NUR ---
INFORMED DR CORTEZ OF ABNORMAL LABS, STATES SODIUM NEEDS TO BE ADJUSTED FIRST, SEND TO FLOOR
--- NOTE | 2019-05-30 14:13 | NUR ---
URINE COLLECTED FROM ANGLIN
[2019-05-30] MEDS ORDERED: ALBUTEROL SULFATE/IPRATROPIU 3 ML SOL IH PRN (14:15)
[2019-05-30 14:30] LABS: APPEARANCE,URINE SL CLOUDY (CLEAR); BILIRUBIN,URINE NEGATIVE (NEGATIVE); BLOOD, URINE 1+ (NEGATIVE); COLOR,URINE YELLOW (YELLOW); LEUKOCYTE ESTERASE ,URINE 1+ (NEGATIVE); NITRITE, URINE NEGATIVE (NEGATIVE); UGLUCOSE NEGATIVE (NEGATIVE)
[2019-05-30 14:35] LABS: BARBITURATE, URINE NEGATIVE ng/ml (NEG <=200); BENZODIAZEPINE, URINE POSITIVE ng/mL (NEG <=200); CANNABINOID, URINE NEGATIVE ng/mL (NEG <=50); COCAINE, URINE NEGATIVE ng/mL (NEG <=300); OPIATE, URINE NEGATIVE ng/mL (NEG <=2000); PHENCYCLIDINE SCREEN,URINE NEGATIVE ng/mL (NEG <=25)
[2019-05-30 14:42] LABS: WBC,URINE 0-5 /HPF (0-5)
[2019-05-30 14:44] LABS: CHOL/HDL RATIO 2.3 (1-4.5); MAGNESIUM 2.6 mg/dL (1.8-2.4); PHOSPHORUS 5.3 mg/dL (2.5-4.9); THYROID STIMULATING HORMONE 151.17 uIU/mL (0.34-3.74)
[2019-05-30 14:45] LABS: PROTHROMBIN TIME 8.4 secs (10.8-13.4)
--- NOTE | 2019-05-30 15:25 | NUR ---
Patient will be admitted to care of [facility]. Admited to tele. Will go to room icu bed 2. Belongings list completed. Report to mónica crowley.
--- NOTE | 2019-05-30 15:31 | NUR ---
FNS CONSULT RECEIVED FOR TUBE FEEDING. PATIENT HAS BEEN SCREENED HIGH NUTRITION RISK AND WILL BE SEEN WITHIN 1-2 DAYS OF ADMISSION. 05/31/19-06/01/[address]
[2019-05-30] MEDS ORDERED: SODIUM BICARBONATE 8.4% 50 MEQ in NACL 0.9% 1,000 ML IV SCH (15:35)
--- NOTE | 2019-05-30 15:40 | NUR ---
DR AGUILAR, DR Mimi JUNE, DR CARPENTER AT BEDSIDE
[2019-05-30] MEDS: LEVOTHYROXINE SODIUM 100 MCG VIAL IV SCH (15:44)
[2019-05-30] MEDS ORDERED: DEXTROSE 50% 50 ML SYR IVP SCH (15:53)
[2019-05-30] MEDS ORDERED: INSULIN REGULAR, HUMAN 100 UNIT/ML VIAL IVP SCH (15:53)
[2019-05-30] MEDS ORDERED: SODIUM ZIRCONIUM CYCLOSILICATE 10 GM POWD.PACK PO SCH (16:00)
[2019-05-30] MEDS ORDERED: CALCIUM GLUCONATE 10% 1000 MG/10 ML VIAL IVP SCH (16:02)
[2019-05-30] MEDS ORDERED: SODIUM BICARBONATE 8.4% PFS 50 MEQ/50 ML SYR IVP SCH (16:06)
[2019-05-30] MEDS ORDERED: NACL 3% 500 ML IV ONE (16:07)
--- NOTE | 2019-05-30 16:23 | NUR ---
05/30/19 RD INITIAL ASSESSMENT COMPLETED PLEASE REFER TO NUTRITION ASSESSMENT UNDER CARE ACTIVITY FOR ESTIMATED NUTRITIONAL NEEDS. 1. RECOMMEND VITAL 1.2 AF @ 55 ML/HR X 24 HR. START AT 20 ML/HR AND INCREASE BY 20ML/HR Q6H -THIS WILL PROVIDE WILL PROVIDE 1584 KCAL AND 99 GM OF PROTEIN WHICH MEETS 100% OF ESTIMATED NUTRIENT NEEDS 2. RECOMMEND FREE WATER FLUSH PER MD 3. RD TO FOLLOW-UP 2-3 DAYS, HIGH RISK SARAH MENA RD
[2019-05-30] MEDS ORDERED: LEVOFLOXACIN 500 MG/D5W PREMIX 100 ML IV SCH (17:00)
--- NOTE | 2019-05-30 17:39 | NUR ---
CHANGED PT SET RESPIRATORY RATE FROM 16 TO 20. DUE TO ABG RESULTS OF ELEVATED CO2 LEVELS. PT REMAINS IN NO DISTRESS. WILL CONTINUE TO MONITOR. CURRENT VENT SETTINGS: PC 30, RR20, +5, 40%, Ti 1.0
--- NOTE | 2019-05-30 17:57 | NUR ---
US AT BEDSIDE
[2019-05-30] MEDS: ALBUTEROL SULFATE/IPRATROPIU 3 ML SOL IH SCH (18:56)
--- NOTE | 2019-05-30 19:00 | NUR ---
PT A/O X1 NON VERBAL, NO SIGNS OF ACUTE DISTRESS, WITH TRACH TO VENT, FIO2 30%, ORAL AND TRACH CARE WITH SUCTION RENDERED. SKIN IS WARM AND DRY, DRESSING ON RLE KEPT CLEAN DRY AND INTACT. ANGLIN CATHETER INTACT, CLEAR YELLOW URINE. INCONTINENT OF BOWEL AND BLADDER, PT IS BEDBOUND, TURN AND REPOSITION Q2H, FLACC 0. MAINTAIN SAFETY AND CONTACT PRECAUTIONS, ALL NEEDS ANTICIPATED, CALL LIGHT WITHIN REACH.
--- NOTE | 2019-05-30 20:00 | NUR ---
WAS SEEN BY PICC LINE NURSE ALYCE, AND PLACED RIGHT UPPER ARM MID LINE CATHETER, PROCEDURE DONE WITH ULTRASOUND. INTACT AND PATENT. CONTINUE TO MONITOR.
[2019-05-30] MEDS ORDERED: CRUSHER, PILL MC ONE (20:43)
[2019-05-30] MEDS: APIXABAN 2.5 MG TAB PO SCH (20:47)
[2019-05-30 21:26] LABS: CARBON DIOXIDE 29.4 mmol/L (21-32); CHLORIDE 83 mmol/L (98-107); CREATININE 1.1 mg/dL (0.6-1.3); GLUCOSE 69 mg/dL (74-106); POTASSIUM 4.9 mmol/L (3.5-5.1); UREA NITROGEN, BLOOD 59 mg/dL (7-18)
[2019-05-30 21:28] LABS: ANION GAP 10.5 (8-16); SODIUM SERUM 118 mmol/L (136-145)
[2019-05-31] VITALS (19 sets, daily range): BP systolic 90–125; BP diastolic 45–70
[2019-05-31 01:19] LABS: ANION GAP 8.6 (8-16); CARBON DIOXIDE 29.8 mmol/L (21-32); CHLORIDE 87 mmol/L (98-107); CREATININE 1.1 mg/dL (0.6-1.3); GLUCOSE 77 mg/dL (74-106); POTASSIUM 4.4 mmol/L (3.5-5.1); SODIUM SERUM 121 mmol/L (136-145); UREA NITROGEN, BLOOD 58 mg/dL (7-18)
[2019-05-31 06:14] LABS: MAGNESIUM 2.2 mg/dL (1.8-2.4)
[2019-05-31 06:21] LABS: CARBON DIOXIDE 28.4 mmol/L (21-32); CHLORIDE 86 mmol/L (98-107); CREATININE 1.2 mg/dL (0.6-1.3); GLUCOSE 73 mg/dL (74-106); POTASSIUM 4.4 mmol/L (3.5-5.1)
[2019-05-31 07:01] LABS: SODIUM SERUM 121 mmol/L (136-145)
[2019-05-31 07:02] LABS: UREA NITROGEN, BLOOD 57 mg/dL (7-18)
[2019-05-31 07:18] LABS: BASOPHILS % (AUTO) 0.2 % (0.0-2.0); EOSINOPHILS % (AUTO) 0.2 % (0.0-4.0); HEMATOCRIT 20.7 % (36-48); LYMPHOCYTES # (AUTO) 0.7 K/uL (2.5-16.5); LYMPHOCYTES % (AUTO) 10.4 % (20.5-51.1); MEAN CORPUSCULAR HEMOGLOBIN 35 pg (27-31); MEAN CORPUSCULAR HGB CONC 34 g/dL (33-37); MEAN CORPUSCULAR VOLUME 103.4 fL (80-94); MONOCYTES # (AUTO) 0.7 K/uL (0.8-1.0); NEUTROPHILS # (AUTO) 5.4 K/uL (1.8-7.7); NEUTROPHILS % (AUTO) 79.2 % (42.2-75.2); PLATELET COUNT (AUTO) 189 K/uL (140-450); RED CELL DISTRIBUTION WIDTH 16.5 % (11.6-13.7); WHITE BLOOD COUNT (AUTO) 6.9 K/uL (4.8-10.8)
[2019-05-31 07:24] LABS: HEMOGLOBIN 7.1 g/dL (12.0-16.0)
--- NOTE | 2019-05-31 07:24 | NUR ---
PT RESTING IN BED, NO SIGNS OF ACUTE DISTRESS, ENDORSED TO ONCOMING DAY SHIFT NURSE FOR CONTINUITY OF CARE.
[2019-05-31] MEDS: ALBUTEROL SULFATE/IPRATROPIU 3 ML SOL IH SCH ×3 (07:28→19:02)
--- NOTE | 2019-05-31 07:30 | NUR ---
RECEIVED REPORT FROM WELDING MACHINE OPERATOR SUBMERGED ARC RN, PT RESTING IN BED, EYES PERRLA BRISK 3MM, PT IS NON VERBAL, ALERT TO HER NAME, PT IS TRACHEOSTOMY TO VENT AC/PC FIO2 30 PINSP 30 RR 24 INSP 1 PEEP 5, S1 S2 HEART SOUNDS HEARD, PULSES PALPABLE UPPER AND LOWER EXTREMITIES, LUNGS SOUNDS CLEAR BILATERAL, PT HAS MIDLINE RUE INFUSING NACL 3% 30 ML/HR, PERIPHERAL IV R FOREARM 24 G NS 10 ML/HR RUNNING, ABDOMEN FIRM ROUND AND DISTENDED, PT HAS ANGLIN CATHETER IN PLACE URINE IS CLEAR AND YELLOW, SKIN IS INTACT EXCEPT FOR SCAB ON RLE SCAB IS BLACK IN COLOR AND DRY, PT HOB IS 30 DEGREES PER PROTOCOL, PT DOES NOT LIKE TO BE SUCTIONED AND WILL GRAB IT WITH HER LEFT ARM TO PREVENT ME FROM SUCTIONING HER, WILL CONTINUE TO MONITOR PT.
--- NOTE | 2019-05-31 07:32 | NUR ---
KRYSTAL FROM LAB CALLED TO REPORT HGB VALUE 7.1, DR. MULLINS CALLED AND NOTIFIED OF LAB VALUE NO NEW ORDERS AT THIS TIME
--- NOTE | 2019-05-31 08:00 | NUR ---
RESIDENTS AT PT BEDSIDE
[2019-05-31] MEDS: carBAMazepine 200 MG TAB PO SCH (08:39)
[2019-05-31] MEDS: DIGOXIN 0.125 MG TAB PO SCH (08:39)
[2019-05-31] MEDS: METOPROLOL 25 MG TAB PO SCH (08:40)
[2019-05-31] MEDS: ASCORBIC ACID 500 MG TAB PO SCH (08:40)
[2019-05-31] MEDS: LEVOTHYROXINE SODIUM 100 MCG VIAL IV SCH (08:42)
[2019-05-31] MEDS: APIXABAN 2.5 MG TAB PO SCH ×2 (08:43→20:14)
[2019-05-31] MEDS ORDERED: PANTOPRAZOLE 40 MG TABEC PO SCH (09:00)
[2019-05-31] MEDS ORDERED: LORazepam 1 MG TAB PO SCH (09:00)
[2019-05-31] MEDS ORDERED: acetaZOLAMIDE 250 MG TAB PO SCH (09:00)
[2019-05-31] MEDS ORDERED: DOCUSATE SODIUM 100 MG GELCAP PO SCH (09:00)
[2019-05-31] MEDS ORDERED: LANSOPRAZOLE 30 MG GT SCH (09:00)
[2019-05-31] MEDS ORDERED: NACL 0.9% 1,000 ML IV SCH (09:00)
--- NOTE | 2019-05-31 09:15 | NUR ---
WOUND CARE NURSE AT BEDSIDE TO ASSESS PT WOUND
--- NOTE | 2019-05-31 09:30 | NUR ---
MEDICATION ADMINISTERED, PT TOLERATING WELL
--- NOTE | 2019-05-31 09:45 | NUR ---
WOUND CARE ASSESSMENT DONE TO THIS 84 Y/O FEMALE PT [place] [facility] DX OF ALC. PT. ADMITTED WITH PRESSURE ULCER UN-STAGEABLE TO RIGHT TIBIA AREA, POC DISCUSSED WITH PRIMARY RN AND PT. INTEGUMENTARY: -TRACH SITE MERLINE STOMA SKIN DRY AND CLEAN. SKIN INTACT. - GT SITE MERLINE STOMA SKIN MOIST AND INTACT. - PRESSURE ULCER INJURY UN-STAGEABLE TO RIGHT TIBIA AREA, 1.3X0.5CM WOUND BED COVER WITH 100% BLACK STABLE ESCHAR. MERLINE WOUND SKIN INTACT, WOUND EDGE FLAT, NO ODOR, MILD PAIN WHEN LEG ELEVATED RECOMMENDATIONS: -CLEANSE RIGHT TIBIA PRESSURE ULCER WITH NS, PAT DRY, PAINT WITH BETADINE SOLUTION BID AND CHEMISTRY TEACHER -OFFLOAD BILATERAL HEELS BY PLACING PILLOWS UNDER CALVES UNLESS OTHERWISE CONTRAINDICATED -PRESSURE REDISTRIBUTION SURFACE THERAPY -TURN AND REPOSITION Q2H, OFFLOAD SACRALCOCCYX BY TURNING RIGHT AND LEFT -CONTINUE TO FOLLOW RD RECOMMENDATIONS ALL ABOVE RECOMMENDATIONS DISCUSSED WITH PRIMARY RN WILL FOLLOW UP PT Q7-10 DAYS. PLEASE CONTACT WOUND CARE NURSE FOR ANY QUESTION AND CHANGE OF WOUND CONDITION.
--- NOTE | 2019-05-31 09:48 | NUR ---
Development Geologist Note: Basic Screen: Yes High Risk DC Screen Yes Name: ASH PALENCIA Home Relationship: SON Pre-Admission Living Arrangements: SNF Other: [facility] Prior ADL Total/Dependent Current Home Health Name/Tel: N/A Current DME/02 Name/Tel: VENTILATOR, BED BOUND Current Hospice Name/Tel: N/A Current Dialysis Name/Tel: N/A Healthcare Decision Maker: Next of Kin Other: ASH PALENCIA Advance Directive No Physician Orders for Life Sustaining Treatment Form No Patient/Family Have Educational Needs No Discipline: Case Mgt/Social Svcs Tentative Discharge Plan/Destination: SNF/ECF Other: [facility] Will require assistance post discharge: No Referred to Energy Efficiency Specialist: No Tentative Discharge Plan Summary: Patient is an 84-year-old female admitted for hyponatremia. Patient has PMHX of CVA right hemiplegia, hypothyroidism, seizure disorder, hip and fracture. Patient was admitted from [facility]. ISABEL contacted Marlen from [facility] [phone]. Per Marlen, patient is care home and is on a bed hold. Marlen transferred SW to Vivian, patient's nurse. Vivian reported that patient is alert/oriented x2 at baseline, and requires total assistance with ADLs. Tentative discharge plan is to return to [facility]. No further needs identified. Signature: SELENE Snyder Date: May 31, 2019 Time: 09:47
--- NOTE | 2019-05-31 10:26 | NUR ---
DISCHARGE PLANNING: THIS IS AN 84 Y/O FEMALE PATIENT FROM [facility] DUE TO ABNORMAL LABS AND WEAKNESS X1 DAY. PAST MEDICAL HISTORY INCLUDE CVA WITH R HEMIPLEGIA, HYPOTHYROIDISM, SEIZURE DISORDER AND HIP FRACTURE. INITIAL DIAGNOSIS OF HYPONATREMIA AND PULMONARY EFFUSION. CURRENT LABS INCLUDE WBC 6.9, H/H 7.1/20.7, NA/K 121/4.4, BUN/CREA 11.0/57, TROP 0.055. UDS POSITIVE FOR BENZO. ON LEVOFLOXACIN AND PROTONIX IV. WITH TRACH TO VENT-FIO2 30%. CARDIO, PULMO AND NEPHRO CONSULTS IN PLACE. CXR ON ADMISSION SHOWED NEW RIGHT LUNG INFILTRATE AND/OR EFFUSION, PERSISTENT PROMINENCE OF THE PULMONARY INTERSTITIUM. CHEST CT SHOWED SMALL RIGHT PLEURAL EFFUSION AND TRACE LEFT PLEURAL EFFUSION. DC PLAN TO RETURN TO [facility] ONCE STABLE. Addendum: 06/01/19 at 1424 by Marnie Leyva CM DC PLANNING: SEEN BY PULMO, CARDIO AND SURGEON CONTINUE IV LEVAQUIN FOR ASPIRATION PNEUMONIA AND UTI , CONTINUE MECHANICAL VENT. SECOND DOSE OF HYPERTONIC SALINE GIVEN FOR NA 131 . DC PLAN PER CONSULT'S RECOMMENDATION CM TO FOLLOW Addendum: 06/03/19 at 1116 by Marnie Leyva CM DC PLANNING: PT HAS A DC ORDER, FAXED ALL THE PAPER WORK TO [facility] .CM TO FOLLOW. Addendum: 06/03/19 at 1418 by Marnie Leyva CM DC PLANNING: RECEIVED A CALL FROM [facility] SPOKE WITH SAVAGE , PATIENT CAN GO TO ROOM 7C UNDER THE CARE OF DR JIM MARLOW AR[employer]ANGE TRANSPORT WITH [employer] CALLED [phone] SPOKE WITH SEDRICK CONFIRMATION # [id number] DESIZING PAD OPERATOR TIME BETWEEN 1-4 HRS AND WILL CALL THE UNIT. NOTIFIED LINDA CHARGE NURSE.
--- NOTE | 2019-05-31 10:50 | NUR ---
DR. CARPENTER AT PT BEDSIDE
[2019-05-31] MEDS ORDERED: PANTOPRAZOLE 40 MG INJ VIAL IVP SCH (11:30)
--- NOTE | 2019-05-31 11:50 | NUR ---
DR. BLACKWOOD AT PT BEDSIDE
--- NOTE | 2019-05-31 11:53 | NUR ---
VENTILATOR SETTINGS CHANGED PER DR. BLACKWOOD REQUEST. NEW VENTILATOR SETTINGS ARE VC/AC RR 20/ VT 450/ PEEP 5/ FIO2 30%.
--- NOTE | 2019-05-31 12:10 | NUR ---
PT RESTING COMFORTABLY, PT TRIES TO PREVENT SUCTIONING OF MOUTH, WILL ALLOW SWAB WITH CHLORHEXIDINE, WILL CONTINUE TO MONITOR PT.
--- NOTE | 2019-05-31 13:35 | NUR ---
DR. Makeda JUNE AT PT BEDSIDE
[2019-05-31] MEDS ORDERED: NACL 3% 500 ML IV SCH (13:40)
--- NOTE | 2019-05-31 13:55 | NUR ---
STARTED TUBE FEEDING VITAL AF 1.2 MONA 20 ML/HR TO INCREASE 10 ML/HR UNTIL TARGET OF 70 ML/HR IS REACHED, WATER FLUSH Q6 50 ML, NO RESIDUALS AT THIS TIME, WILL CONTINUE TO MONITOR PT
[2019-05-31 14:04] LABS: ANION GAP 10.2 (8-16); CHLORIDE 90 mmol/L (98-107); CREATININE 1.1 mg/dL (0.6-1.3); GLUCOSE 72 mg/dL (74-106); POTASSIUM 4.2 mmol/L (3.5-5.1); SODIUM SERUM 124 mmol/L (136-145); UREA NITROGEN, BLOOD 55 mg/dL (7-18)
--- NOTE | 2019-05-31 14:55 | NUR ---
INCREASED TUBE FEEDING NO RESIDUALS AT THIS TIME PT TOLERATING WELL, WILL CONTINUE TO MONITOR
--- NOTE | 2019-05-31 15:55 | NUR ---
INCREASED TUBE FEEDING TO 30 ML/HR NO RESIDUALS, PT TOLERATING FEEDING WILL CONTINUE TO MONITOR
[2019-05-31] MEDS: LEVOFLOXACIN 250 MG/D5 PREMIX 50 ML IV SCH (16:31)
--- NOTE | 2019-05-31 16:55 | NUR ---
INCREASED FEEDING 40ML/HR, NO RESIDUALS, PT TOLERATING FEEDING, WILL CONTINUE TO MONITOR
--- NOTE | 2019-05-31 17:55 | NUR ---
INCREASED TUBE FEEDING TO 50 ML/HR NO RESIDUALS, WILL CONTINUE TO MONITOR PT
--- NOTE | 2019-05-31 18:55 | NUR ---
INCREASED PT FEEDING TO 60 ML/HR, PT TOLERATING FEEDING WITH 5ML RESIDUALS, WILL CONTINUE TO MONITOR
--- NOTE | 2019-05-31 19:18 | NUR ---
PT RESTING IN BED WATCHING TV, PT APPEARS STABLE WITH NO SIGNS OF DISTRESS, ENDORSED PT TO TOOL SETTER RN
--- NOTE | 2019-05-31 19:19 | NUR ---
REPORT RECEIVED FROM AM NURSE AT BEDSIDE. PT IN STABLE CONDITION. AAOX2. INTRODUCED SELF TO PT. NO COMPLAINTS OF PAIN. NO SOB ON TRACH TO VENT. VENT SETTINGS FIO2 30%, VT 450, RR 20, PEEP 5 AC V/C MODE. AFEBRILE@98.0. PT IS BEDBOUND. PT HAS ANGLIN. PT IS VENTILATED AND APHASIC. PT HAS GTUBE. TUBE FEEDINGS VITAL AF 1.2@60ML/HR WITH 50ML FLUSH Q6H PATENT AND INTACT. PT HAS GTUBE FEEDINGS IV SITE R FA 24G SL PATENT AND INTACT AND R UA MIDLINE RUNNING 3%NS@30ML/HR PATENT AND INTACT. SKIN WARM, DRY, AND NOT INTACT DUE TO R LE WOUND ANABEL. BED LOCKED IN LOW POSITION. CALL BURK WITHIN REACH. SAFETY PRECAUTION IN PLACE. ALL NEEDS MET AT THIS TIME.
--- NOTE | 2019-05-31 20:14 | NUR ---
ELIQUIS GIVEN THROUGH [employer]. PT TOLERATED WELL.
[2019-05-31 20:22] LABS: ANION GAP 10.9 (8-16); CHLORIDE 93 mmol/L (98-107); CREATININE 1.2 mg/dL (0.6-1.3); GLUCOSE 101 mg/dL (74-106); POTASSIUM 3.9 mmol/L (3.5-5.1); SODIUM SERUM 127 mmol/L (136-145); UREA NITROGEN, BLOOD 53 mg/dL (7-18)
--- NOTE | 2019-05-31 20:45 | NUR ---
PT BEING TRANSFERRED TO [facility]. Addendum: 05/31/19 at 2150 by Sukumar Morris RN REPORT GIVEN TO SANDRINE SONG PT IN STABLE CONDITION.
--- NOTE | 2019-05-31 21:05 | NUR ---
PT SAFELY TRANSFERRED FROM ICU TO TELE. VENT PLUGGED INTO RED OUTLET. BMV AT BEDSIDE. TRACH SECURED AND INTACT. PT IS IN NO DISTRESS. WILL CONT TO MONITOR
--- NOTE | 2019-05-31 21:15 | NUR ---
G TUBE IN PLACE, AND FEEDING WELL TOLERATED, RT LOWER EXTREMITY SCAB
--- NOTE | 2019-05-31 21:15 | NUR ---
RECEIVED PT FROM ICU REPORT GIVEN AT BED SIDE BY [facility] SENT[facility] LATH[facility] PT ALERT X1 NONVERBAL TRACH TO VENT SETTING FIO2 30% TV 450 PEEP 5 RR 16 , MIDLINE ON RT UPPER ARM PATENT, HL ON RT FA, ANGLIN CATH DDRAINING WELL YELLOW URINE AND AT 2134 END 24 HOURS URINE COLLECTION , ON TELEMETRY SR 77 RESPIRATORY THERAPY AT BED SIDE,ASSISTING THE PT BARBARA CHANGED INITIAL ASSESSMENT DONE
--- NOTE | 2019-05-31 21:35 | NUR ---
AT 8262 24 HOURS URINE COLLECTION FINISH ANDSENT TO LAB
--- NOTE | 2019-05-31 23:19 | NUR ---
PT IS SUCTIONED NECESSARY TRACH TOVEN REMAIN SAME SETTING
[2019-06-01] VITALS (7 sets, daily range): BP systolic 104–122; BP diastolic 40–54
--- NOTE | 2019-06-01 01:21 | NUR ---
PT SLEEPING WELL G TUBE FEEDING WELL TOLERATED TRACHTO VENT REMAIN SAME SETTING REPOSITIONED Q2H ON TELEMETRY SR
--- NOTE | 2019-06-01 04:30 | NUR ---
SPONGE BATH GIVEN LINEN CHANGEDM
--- NOTE | 2019-06-01 05:34 | NUR ---
pt remains on documented setting. vent plugged into red outlet. bmv at bedside. alarms audible and working. trach is secured and intact. pt remains calm and no distress noted. will cont to monitor
--- NOTE | 2019-06-01 06:19 | NUR ---
PT WILL BE ENDORSED TO DAY SHIFT NURSE FOR CONTINUE OF CARE, PT REMAIN STABLE SAME SETTING TRACH TO VENT , ON TELEMETRY SR
[2019-06-01 06:21] LABS: BASOPHILS % (AUTO) 0.4 % (0.0-2.0); EOSINOPHILS % (AUTO) 0.8 % (0.0-4.0); HEMATOCRIT 20.8 % (36-48); HEMOGLOBIN 7.1 g/dL (12.0-16.0); LYMPHOCYTES # (AUTO) 0.7 K/uL (2.5-16.5); MEAN CORPUSCULAR HEMOGLOBIN 36 pg (27-31); MEAN CORPUSCULAR HGB CONC 34 g/dL (33-37); MEAN CORPUSCULAR VOLUME 104.5 fL (80-94); MONOCYTES # (AUTO) 0.6 K/uL (0.8-1.0); MONOCYTES % (AUTO) 9.2 % (1.7-9.3); NEUTROPHILS % (AUTO) 78.6 % (42.2-75.2); PLATELET COUNT (AUTO) 210 K/uL (140-450); RED BLOOD CELL COUNT(AUTO) 1.99 MIL/uL (4.20-5.40); RED CELL DISTRIBUTION WIDTH 16.6 % (11.6-13.7); WHITE BLOOD COUNT (AUTO) 6.4 K/uL (4.8-10.8)
[2019-06-01 07:02] LABS: ANION GAP 12.6 (8-16); CARBON DIOXIDE 26.3 mmol/L (21-32); CHLORIDE 96 mmol/L (98-107); CREATININE 1.1 mg/dL (0.6-1.3); GLUCOSE 97 mg/dL (74-106); POTASSIUM 3.9 mmol/L (3.5-5.1); SODIUM SERUM 131 mmol/L (136-145); UREA NITROGEN, BLOOD 51 mg/dL (7-18)
[2019-06-01 07:05] LABS: MAGNESIUM 2.2 mg/dL (1.8-2.4); PHOSPHORUS 2.2 mg/dL (2.5-4.9)
--- NOTE | 2019-06-01 07:20 | NUR ---
RECEIVED PT FROM [employer] NURSE. PT IS AWAKE IN BED WITH NO SIGNS OF DISTRESS NOTED. IV IS PATENT, ASYMPTOMATIC, AND INFUSING PER ORDER AT MIDLINE UPPER ARM. RESPIRATIONS ARE EVEN AND UNLABORED ON VENTILATOR WITH FIO2 OF 30%. SKIN IS INTACT WITH G-TUBE IN PLACE. SAFETY MEASURES IN PLACE, BED IN LOW POSITION WITH HOB AT 30 DEGREES, AND CALL LIGHT WITHIN REACH.
[2019-06-01] MEDS: ALBUTEROL SULFATE/IPRATROPIU 3 ML SOL IH SCH ×3 (07:30→19:46)
--- NOTE | 2019-06-01 07:43 | NUR ---
FOUND PATIENT ON AC/VC RR 20, VT450, +5, 30%. PATIENT IS IN NO DISTRESS. SUCTIONED THIN YELLOW SECRETIONS. TREATMENT WAS GIVEN INLINE. PT TOLERATED TX WELL. ALARMS ARE ON AND FUNCTIONING. PATIENT LEFT ON SAME SETTINGS.
[2019-06-01] MEDS: DOCUSATE 100 MG/10 ML UDC GT SCH (09:52)
[2019-06-01] MEDS: ASCORBIC ACID 500 MG TAB PO SCH (09:52)
[2019-06-01] MEDS: carBAMazepine 200 MG TAB PO SCH (09:52)
[2019-06-01] MEDS: DIGOXIN 0.125 MG TAB PO SCH (09:52)
[2019-06-01] MEDS: METOPROLOL 25 MG TAB PO SCH (09:53)
[2019-06-01] MEDS: APIXABAN 2.5 MG TAB PO SCH ×2 (09:56→21:03)
--- NOTE | 2019-06-01 09:57 | NUR ---
ADMINISTERED MEDICATIONS PER ORDER AND TOLERATED WELL. ZERO RESIDUAL FROM G-TUBE AND PATIENT WAS SUCTIONED. NO SIGNS OF DISTRESS NOTED. SAFETY MEASURES IN PLACE AND WILL CONTINUE TO MONITOR.
[2019-06-01] MEDS: LEVOTHYROXINE SODIUM 100 MCG VIAL IV SCH (10:27)
[2019-06-01] MEDS: PANTOPRAZOLE 40 MG INJ VIAL IVP SCH (10:27)
--- NOTE | 2019-06-01 11:23 | NUR ---
CHANGED VT TO [address] STOKES.
--- NOTE | 2019-06-01 12:41 | NUR ---
06/01/19 RD FOLLOW UP COMPLETED PLEASE REFER TO NUTRITION ASSESSMENT UNDER CARE ACTIVITY FOR ESTIMATED NUTRITIONAL NEEDS. 1. RECOMMEND VITAL 1.2 AF @ 65 ML/HR X 24 HR -THIS WILL PROVIDE 1872 KCAL AND 126 GM OF PROTEIN, WHICH MEETS 100% OF ESTIMATED NUTRIENT NEEDS. 2. RECOMMEND FREE WATER FLUSH PER MD 3. RD TO FOLLOW-UP 2-3 DAYS, HIGH RISK SARAH MENA RD
--- NOTE | 2019-06-01 12:48 | NUR ---
PT IS ASLEEP IN BED WITH NO SIGNS OF DISTRESS NOTED. VITAL SIGNS IMPLY STABLE CONDITION WITH NO OTHER CONCERNS AT THIS TIME. SAFETY MEASURES IN PLACE, CALL LIGHT WITHIN REACH AND WILL CONTINUE TO MONITOR.
[2019-06-01 13:09] LABS: TOTAL VOLUME 24HRS,URINE 1850 mL
[2019-06-01 13:10] LABS: SODIUM TIMED,URINE 23 mmol/L; SODIUM URINE, 24HR CALC 43 mmol/24H (40-220)
[2019-06-01 13:12] LABS: COLLECTION TIME,URINE 24 HR
--- NOTE | 2019-06-01 13:12 | NUR ---
PATIENT SETTINGS ARE AC/VC RR20, VT400, +5, 30% TREATMENT GIVEN, PT TOLERATED WELL. PATIENT IS IN NO DISTRESS. ALARMS ARE ON AND FUNCTIONING. VENT IS PLUGGED INTO RED OUTLET
--- NOTE | 2019-06-01 14:03 | NUR ---
PT WAS REPOSITIONED AND TOLERATED WELL. NO SIGNS OF DISTRESS NOTED VIA FLACC 0. WOUND ASSESSMENT WAS COMPLETED WELL WOUND CARE. SAFETY MEASURES ARE IN PLACE, CALL LIGHT IS WITHIN REACH, AND WILL CONTINUE TO MONITOR.
--- NOTE | 2019-06-01 16:33 | NUR ---
PT IS CURRENTLY LAYING SUPINE ASLEEP WITH NO SIGNS OF DISTRESS VIA FLACC 0. IV SAFETY MEASURES IN PLACE, CALL LIGHT WITHIN REACH AND WILL CONTINUE TO MONITOR.
--- NOTE | 2019-06-01 17:05 | NUR ---
SUCTIONED THIN/YELLOW SECRETIONS. CLEAR BREATH SOUNDS POST SUCTION. HME CHANGED. PATIENT IS COMFORTABLE AND IN NO DISTRESS. VENT ALARMS ARE ON AND FUNCTIONING.
[2019-06-01] MEDS: LEVOFLOXACIN 250 MG/D5 PREMIX 50 ML IV SCH (17:13)
--- NOTE | 2019-06-01 17:25 | NUR ---
MEDICATIONS ADMINISTERED PER ORDER. NO SIGNS OF DISTRESS NOTED PER FLACC 0. SAFETY MEASURES IN PLACE, CALL LIGHT WITHIN REACH AND WILL CONTINUE TO MONITOR
--- NOTE | 2019-06-01 19:20 | NUR ---
ENDORSED TO TEXTILE TECHNICAL OFFICER NURSE. PT IS CURRENTLY SLEEPING AND IN STABLE CONDITION WITH NO SIGNS OF DISTRESS NOTED. SAFETY MEASURES IN PLACE AND CALL LIGHT WITHIN REACH.
--- NOTE | 2019-06-01 19:30 | NUR ---
RECEIVED BEDSIDE REPORT FROM AM SHIFT RN FOR PT'S CONTINUITY OF CARE. PT IS ASLEEP, WITH NO SIGNS OF DISTRESS. PT IS ON DIRECTOR CORPORATE SECURITY, HAS TRACH TO VENT, HAS RIGHT UPPER ARM MIDLINE SALINE LOCK, IS ON GTUBE FEEDING, ANGLIN CATHETER IN PLACE. SAFETY MEASURES, SEIZURE PRECAUTION, AND CALL LIGHT IS WITHIN REACH. WILL MONITOR PT THROUGHOUT SHIFT.
--- NOTE | 2019-06-01 19:46 | NUR ---
RECEIVED REPORT FROM AM SHIFT. PATIENT SEEN AND ASSESSED. PATIENT TRACH WITH PORTEX SIZE 8 AND ON VENT SETTINGS: AC/VC RR 20, Vt 400, PEEP 5, FiO2 30%. VENT PLUGGED IN RED OUTLET, ALARMS SET AND AUDIBLE, HOB > 30 DEGREES. PATIENT APPEARS TO BE IN NO RESPIRATOR DISTRESS AT THIS TIME: RR 22, HR 74, SPO2 97%, AND A CLEAR BILATERAL BREATH SOUNDS. HHN TX GIVEN ORDERED WITH NO ADVERSE REACTIONS. WILL CONTINUE TO MONITOR PT.
--- NOTE | 2019-06-01 21:03 | NUR ---
ADMINISTERED SCHEDULED MEDICATION ORDERED. GTUBE PLACEMENT VERIFIED THROUGH AUSCULTATION AND ASPIRATION. PT TOLERATED IT WELL. ASPIRATED 0 ML. PT SUCTIONED AND REPOSITIONED. NO DISTRESS NOTED. WILL CONTINUE TO MONITOR PT.
--- NOTE | 2019-06-01 22:30 | NUR ---
PT ASLEEP WITH NO SIGNS OF DISTRESS. WILL CONTINUE TO MONITOR PT.
[2019-06-02] VITALS: BP 124/53
--- NOTE | 2019-06-02 00:15 | NUR ---
PT ASLEEP WITH NO SIGNS OF DISTRESS. VS CHECKED AND CHARTED. WILL CONTINUE TO MONITOR PT.
--- NOTE | 2019-06-02 01:00 | NUR ---
PERFORMED WOUND CARE ORDERED. PT TOLERATED IT WELL. ELEVATED LEGS WITH PILLOWS. PT TOLERATED ACTIVITY WELL. WILL CONTINUE TO MONITOR PT.
--- NOTE | 2019-06-02 02:36 | NUR ---
PT HR AT 02:28:02 = 66 THEN AT 02:28:12 = 38. NOTIFIED MD AT 0236, NO NEW ORDER. PT HR AT 0236 = 66 SR. PT ASLEEP WITH NO SIGNS OF DISTRESS. WILL CONTINUE TO MONITOR PT.
--- NOTE | 2019-06-02 03:00 | NUR ---
ADMINISTERED NEW GTUBE FEEDING, VITAL AF, RATE OF 65ML/HR, WATER FLUSH OF 50 ML/HR EVERY 6 HOURS. NO RESIDUAL ASPIRATED. PT TOLERATED IT WELL. WILL CONTINUE TO MONITOR PT.
--- NOTE | 2019-06-02 03:30 | NUR ---
PT IS CURRENTLY ASLEEP. ORAL CARE WAS PROVIDED INCLUDING SUCTIONING, PT TOLERATED WELL. NO OTHER COMPLAINTS OF PAIN NOTED OR SIGNS OF DISTRESS VIA FLACC 0. SAFETY MEASURES IN PLACE AND WILL CONTINUE TO MONITOR. Addendum: 06/02/19 at 1549 by Coco Villareal RN TIME IS 1530.
[2019-06-02 04:00] VITALS: BP 113/34
--- NOTE | 2019-06-02 04:00 | NUR ---
VS CHECKED AND CHARTED. PERFORMED MERLINE/CATH CARE, REPOSITIONED, ORAL CARE GIVEN, SPONGE BATH GIVEN. PT TOLERATED IT WELL. WILL CONTINUE TO MONITOR PT.
--- NOTE | 2019-06-02 05:35 | NUR ---
PT HR 38. WENT BACK UP IMMEDIATELY. PT STABLE, NO DISTRESS NOTED. NOTIFIED MD, NO NEW ORDER.
[2019-06-02] MEDS: LEVOTHYROXINE 0.05 MG TAB GT SCH (06:12)
--- NOTE | 2019-06-02 06:12 | NUR ---
ADMINISTERED SCHEDULED MEDICATION ORDERED, NO RESIDUAL ASPIRATED, CHANGED VIOLET VALVE. PT ASLEEP WITH NO DISTRESS NOTED. WILL ENDORSE PT TO AM SHIFT RN FOR PT'S CONTINUITY OF CARE.
[2019-06-02 06:28] LABS: BASOPHILS # (AUTO) 0.1 K/uL (0.00-0.22); BASOPHILS % (AUTO) 0.7 % (0.0-2.0); EOSINOPHILS # (AUTO) 0.2 K/uL (0-0.4); EOSINOPHILS % (AUTO) 2.3 % (0.0-4.0); HEMATOCRIT 21.4 % (36-48); HEMOGLOBIN 7.1 g/dL (12.0-16.0); LYMPHOCYTES # (AUTO) 0.9 K/uL (2.5-16.5); LYMPHOCYTES % (AUTO) 13.2 % (20.5-51.1); MEAN CORPUSCULAR HEMOGLOBIN 36 pg (27-31); MEAN CORPUSCULAR HGB CONC 33 g/dL (33-37); MEAN CORPUSCULAR VOLUME 107.1 fL (80-94); MONOCYTES # (AUTO) 0.7 K/uL (0.8-1.0); MONOCYTES % (AUTO) 10.7 % (1.7-9.3); NEUTROPHILS % (AUTO) 73.1 % (42.2-75.2); PLATELET COUNT (AUTO) 221 K/uL (140-450); RED BLOOD CELL COUNT(AUTO) 1.99 MIL/uL (4.20-5.40); WHITE BLOOD COUNT (AUTO) 6.9 K/uL (4.8-10.8)
[2019-06-02 06:32] LABS: MAGNESIUM 2.1 mg/dL (1.8-2.4); PHOSPHORUS 2.2 mg/dL (2.5-4.9); THYROID STIMULATING HORMONE 126.65 uIU/mL (0.34-3.74)
--- NOTE | 2019-06-02 07:11 | NUR ---
RECEIVED REPORT FROM HOT DIP GALVANIZER NURSE. PT IS CURRENTLY SLEEPING WITH NO SIGNS OF DISTRESS NOTED USING FLACC. RESPIRATIONS ARE UNLABORED, PT IS ON VENTILATOR. SKIN IS WARM, DRY, AND INTACT MINUS RIGHT LOWER LEG WOUND WHICH IS OPEN TO AIR. IV PATENT ASYMPTOMATIC AND SALINE LOCKED. G-TUBE IS IN PLACE AND FEEDING IS INFUSING PER ORDER. SAFETY MEASURES IN PLACE, CALL LIGHT WITHIN REACH, AND WILL CONTINUE TO MONITOR.
[2019-06-02 08:00] VITALS: BP 107/48
[2019-06-02] MEDS: ALBUTEROL SULFATE/IPRATROPIU 3 ML SOL IH SCH ×3 (08:01→19:20)
[2019-06-02] MEDS: carBAMazepine 200 MG TAB PO SCH (08:59)
[2019-06-02] MEDS: METOPROLOL 25 MG TAB PO SCH (08:59)
[2019-06-02] MEDS: PANTOPRAZOLE 40 MG INJ VIAL IVP SCH (09:00)
[2019-06-02] MEDS: DIGOXIN 0.125 MG TAB PO SCH (09:00)
[2019-06-02] MEDS ORDERED: SODIUM PHOSPHATE 15 MMOLE in NACL 0.9% 250 ML IV SCH (09:00)
[2019-06-02] MEDS: DOCUSATE 100 MG/10 ML UDC GT SCH (09:00)
[2019-06-02] MEDS: ASCORBIC ACID 500 MG TAB PO SCH (09:00)
[2019-06-02] MEDS: APIXABAN 2.5 MG TAB PO SCH ×2 (09:02→20:17)
--- NOTE | 2019-06-02 09:26 | NUR ---
MEDICATIONS ADMINISTERED PER ORDER AND TOLERATED WELL. PT IS CURRENTLY SLEEPING WITH NO SIGNS OF DISTRESS NOTED VIA FLACC 0. FEEDING IS INFUSING PER ORDER AND TOLERATING WELL WITH 5ML OF RESIDUAL. SAFETY MEASURES IN PLACE AND WILL CONTINUE TO MONITOR.
[2019-06-02 10:17] LABS: ANION GAP 13.3 (8-16); CARBON DIOXIDE 24.9 mmol/L (21-32); CHLORIDE 98 mmol/L (98-107); GLUCOSE 121 mg/dL (74-106); POTASSIUM 4.2 mmol/L (3.5-5.1); SODIUM SERUM 132 mmol/L (136-145); UREA NITROGEN, BLOOD 49 mg/dL (7-18)
--- NOTE | 2019-06-02 10:40 | NUR ---
PT HAD A BOWEL MOVEMENT AND WAS CHANGED. DURING CLEANING AND POSITION CHANGE PTS HEART RATE DECREASED TO 41 BPM. PTS HR WAS DECREASED FOR ABOUT 30-45 SECONDS THEN INCREASED TO 60S. NO SIGNS OF DISTRESS WERE NOTED DURING THIS TIME VIA FLACC 0. SAFETY MEASURES IN PLACE AND WILL CONTINUE TO MONITOR
[2019-06-02 12:00] VITALS: BP 114/52
--- NOTE | 2019-06-02 12:07 | NUR ---
PT IS ALERT AND AWAKE IN BED WATCHING TV, WITH NO SIGNS OF DISTRESS NOTED VIA FLACC 0. VS WERE TAKEN WITH NO COMPLAINTS OF PAIN. SAFETY MEASURES IN PLACE AND WILL CONTINUE TO MONITOR.
--- NOTE | 2019-06-02 15:30 | NUR ---
PT IS CURRENTLY ASLEEP. ORAL CARE WAS PROVIDED INCLUDING SUCTIONING, PT TOLERATED WELL. NO OTHER COMPLAINTS OF PAIN NOTED OR SIGNS OF DISTRESS VIA FLACC 0. SAFETY MEASURES IN PLACE AND WILL CONTINUE TO MONITOR.
[2019-06-02 16:00] VITALS: BP 110/52
--- NOTE | 2019-06-02 17:18 | NUR ---
RESTING WELL NO EVIDENCE OF PULMONARY DISTRESS NOTED GOOD CHEST RISE DEEP TRACHEAL SUCTION FOR LARGE THIN PALE YELLOW SECRETINS AIRWAY PATENT
--- NOTE | 2019-06-02 17:25 | NUR ---
PT IS CURRENTLY SLEEPING WITH NO SIGNS OF DISTRESS NOTED VIA FLACC 0. MEDICATION ADMINISTERED PER ORDER AND TOLERATED WELL. SAFETY MEASURES IN PLACE AND WILL CONTINUE TO MONITOR.
[2019-06-02] MEDS: LEVOFLOXACIN 250 MG/D5 PREMIX 50 ML IV SCH (17:44)
--- NOTE | 2019-06-02 19:15 | NUR ---
RECEIVED BEDSIDE REPORT FROM AM SHIFT RN FOR PT'S CONTINUITY OF CARE. PT IS ASLEEP WITH NO SIGNS OF DISTRESS. SALIVA NOTED, SUCTIONED PT, PT TOLERATED IT WELL. PT IS ON HAND I TUBE BENDER, IS ON TRACH TO VENT, HAS RIGHT UPPER ARM MIDLINE, HAS RIGHT CALF AREA PRESSURE INJURY LANDSCAPE GARDENER. SAFETY MEASURES AND SEIZURE PRECAUTION IN PLACE. CALL LIGHT IS WITHIN REACH. WILL MONITOR PT THROUGHOUT SHIFT.
--- NOTE | 2019-06-02 19:21 | NUR ---
PT IS CURRENTLY SLEEPING WITH NO SIGNS OF DISTRESS NOTED VIA FLACC 0. ENDORSED TO BLOCK LAYER NURSE, SAFETY MEASURES IN PLACE AND CALL LIGHT WITHIN REACH.
--- NOTE | 2019-06-02 19:25 | NUR ---
received pt from day shift on documented settings. vent plugged into red outlet. bmv at bedside. alarms audible and working. trach is secured and intact. pt is in no distress. will cont to monitor
[2019-06-02 20:00] VITALS: BP 115/45
--- NOTE | 2019-06-02 20:17 | NUR ---
ADMINISTERED SCHEDULED MEDICATIONS ORDERED. GTUBE PLACEMENT VERIFIED WITH AUSCULTATION, NO RESIDUAL ASPIRATED. PT TOLERATED IT WELL. ORIENTED PT TO THE HOSPITAL ENVIRONMENT, SAFETY MEASURES IN PLACE, AND CALL LIGHT IS WITHIN REACH. WILL CONTINUE TO MONITOR PT.
--- NOTE | 2019-06-02 22:15 | NUR ---
PT ASLEEP WITH NO SIGNS OF DISTRESS. PT WAS REPOSITIONED AND MADE COMFORTABLE. PT TOLERATED IT WELL. NO RESPIRATORY DISTRESS NOTED. WILL CONTINUE TO MONITOR PT.
[2019-06-03] VITALS: BP 119/44
--- NOTE | 2019-06-03 00:30 | NUR ---
RT AT BEDSIDE, PT ASLEEP WITH NO SIGNS OF DISTRESS.
--- NOTE | 2019-06-03 01:00 | NUR ---
PT AWAKE, WAS ABLE TO CONVERSE WITH PT NODDING OR SHAKING HER HEAD. REORIENTED PT TO THE SURROUNDINGS, PT NODDED. PT SHOOK HEAD WHEN ASKED IF PT WAS IN PAIN. WILL CONTINUE TO MONITOR PT.
--- NOTE | 2019-06-03 02:15 | NUR ---
ADMINISTERED NEW GTUBE FEEDING AT 65ML/HR, WITH 50ML WATER FLUSH EVERY 6 HRS. ORAL SUCTIONED PERFORMED. PT TOLERATED ACTIVITY WELL. WILL CONTINUE TO MONITOR PT.
[2019-06-03 04:00] VITALS: BP 125/47
--- NOTE | 2019-06-03 04:30 | NUR ---
VS CHECKED AND CHARTED. PT REPOSITIONED, CHANGED, PERFORMED ORAL CARE, PERFORMED DEEP SUCTION, CLEANSED AND CHANGED GTUBE DRESSING, PERFORMED SPONGE BATH, PT MADE COMFORTABLE. PT TOLERATED ACTIVITY FAIRLY. NO RESPIRATORY DISTRESS NOTED. FACIAL GRIMMACING NOTED ONLY WHILE CHANGING. VERBALIZED TO PT STEP BY STEP PROCEDURE. PT NODDED. WILL CONTINUE TO MONITOR PT.
--- NOTE | 2019-06-03 05:44 | NUR ---
PT REMAINS ON DOCUMENTED SETTINGS. VENT PLUGGED INTO RED OUTLET. BMV AT BEDSIDE. ALARMS SET. TRACH SECURED AND INTACT. PT IS IN NO DISTRESS. WILL CONT TO MONITOR
[2019-06-03] MEDS: LEVOTHYROXINE 0.05 MG TAB GT SCH (06:14)
--- NOTE | 2019-06-03 06:18 | NUR ---
ADMINISTERED SCHEDULED MEDICATION ORDERED. NO RESIDUAL ASPIRATED FROM THE GTUBE. PT ASLEEP WITH NO SIGNS OF RESPIRATORY DISTRESS OR DISCOMFORT. WILL ENDORSE TO AM SHIFT RN FOR PT'S CONTINUITY OF CARE. SAFETY MEASURES AND SEIZURE PRECAUTION ARE IN PLACE.
--- NOTE | 2019-06-03 07:26 | NUR ---
RECEIVED REPORT FROM CARVER HAND NURSE, VÍCTOR, FOR CONTINUITY OF CARE. PT IS LYING IN BED WITH HOB AT 30 DEGREES. AA&OX1. RESPIRATIONS ARE EVEN AND UNLABORED, TRACH TO VENT. VENT SETTINGS: FIO2: 30; VT: 400; RATE: 20; FLOW: 30; PEEP:5. R MIDLINE IV IS PATENT AND INTACT, SALINE LOCK. TUBE FEEDING, G TUBE LUQ IS INTACT. ANGLIN CATHETER IN PLACE. RT ANKLE PRESSURE INJURY, SKIN TEAR, NOTED; LEAD SUPPLY WORKER. BEDBOUND. SAFETY MEASURES IN PLACE, CALL LIGHT WITHIN REACH, BED IN LOW POSITION, SIGN POSTED. TELE MONITOR ATTACHED. NO ACUTE DISTRESS NOTED. WILL CONTINUE TO MONITOR.
[2019-06-03 08:00] VITALS: BP 143/64
[2019-06-03 08:10] LABS: BASOPHILS % (AUTO) 0.7 % (0.0-2.0); EOSINOPHILS # (AUTO) 0.2 K/uL (0-0.4); HEMATOCRIT 21.5 % (36-48); LYMPHOCYTES % (AUTO) 16.3 % (20.5-51.1); MEAN CORPUSCULAR HEMOGLOBIN 35 pg (27-31); MEAN CORPUSCULAR HGB CONC 33 g/dL (33-37); MEAN CORPUSCULAR VOLUME 106.7 fL (80-94); MONOCYTES # (AUTO) 0.6 K/uL (0.8-1.0); MONOCYTES % (AUTO) 10.6 % (1.7-9.3); NEUTROPHILS # (AUTO) 4.1 K/uL (1.8-7.7); NEUTROPHILS % (AUTO) 69.4 % (42.2-75.2); PLATELET COUNT (AUTO) 228 K/uL (140-450); RED BLOOD CELL COUNT(AUTO) 2.01 MIL/uL (4.20-5.40); RED CELL DISTRIBUTION WIDTH 17.5 % (11.6-13.7)
--- NOTE | 2019-06-03 08:24 | NUR ---
RECEIVED CRITICAL LAB HGB 7.0 FROM PAM, REPORTED TO DR STOKES AND DR STOKES WAS AWARE. NO ORDER RECEIVED AT THIS TIME.
[2019-06-03] MEDS: carBAMazepine 200 MG TAB PO SCH (09:25)
[2019-06-03] MEDS: APIXABAN 2.5 MG TAB PO SCH (09:25)
[2019-06-03] MEDS: ASCORBIC ACID 500 MG TAB PO SCH (09:26)
[2019-06-03] MEDS: DIGOXIN 0.125 MG TAB PO SCH (09:26)
[2019-06-03] MEDS: DOCUSATE 100 MG/10 ML UDC GT SCH (09:26)
[2019-06-03] MEDS: PANTOPRAZOLE 40 MG INJ VIAL IVP SCH (09:27)
[2019-06-03] MEDS: METOPROLOL 25 MG TAB PO SCH (09:27)
--- NOTE | 2019-06-03 09:27 | NUR ---
PT'S SCHEDULED MEDS WERE GIVEN. BLOOD PRESSURE AND PULSE WAS CHECKED BEFORE ADMINISTRATION OF BP MED. BP: 143/65; PULSE: 75. G TUBE RESIDUAL WAS CHECKED, <3 ML RESIDUAL. G TUBE WAS FLUSHED BEFORE AND AFTER MEDS. MEDICATION EDUCATION WAS GIVE, REINFORCEMENT NEEDED. PT TOLERATED MEDS WELL. RT HUMBERTO IS AT BEDSIDE. SAFETY MEASURES IN PLACE, SIGN POSTED, CALL LIGHT WITHIN REACH, BED IN LOW POSITION. TELE MONITOR ATTACHED. NO ACUTE DISTRESS NOTED. WILL CONTINUE TO MONITOR.
[2019-06-03] MEDS: ALBUTEROL SULFATE/IPRATROPIU 3 ML SOL IH SCH ×2 (09:43→13:45)
[2019-06-03 09:56] LABS: ANION GAP 10.4 (8-16); CARBON DIOXIDE 27.4 mmol/L (21-32); CHLORIDE 99 mmol/L (98-107); CREATININE 1.1 mg/dL (0.6-1.3); GLUCOSE 109 mg/dL (74-106); POTASSIUM 3.8 mmol/L (3.5-5.1); SODIUM SERUM 133 mmol/L (136-145); UREA NITROGEN, BLOOD 47 mg/dL (7-18)
[2019-06-03 10:01] LABS: MAGNESIUM 2.1 mg/dL (1.8-2.4); PHOSPHORUS 2.7 mg/dL (2.5-4.9)
[2019-06-03] MEDS ORDERED: LEVO250P6 IV (10:48)
[2019-06-03] MEDS ORDERED: SYN.05 GT (10:48)
--- NOTE | 2019-06-03 11:18 | NUR ---
PT IS RESTING IN BED, AROUSABLE TO VOICE. NO DISTRESS NOTED. SAFETY MEASURES IN PLACE, BED IN LOW POSITION, CALL LIGHT WITHIN REACH, BED ALARM ACTIVATED. TELE MONITOR ATTACHED. WILL CONTINUE TO MONITOR.
[2019-06-03 12:00] VITALS: BP 112/54
--- NOTE | 2019-06-03 13:14 | NUR ---
PERFORMED WOUND CARE. WOUND ANABEL, PAINT WITH BETADINE. NO DISTRESS NOTED. TELE MONITOR ATTACHED. SAFETY MEASURES IN PLACE, BED ALARM ACTIVATED. WILL CONTINUE TO MONITOR.
--- NOTE | 2019-06-03 14:34 | NUR ---
CALLED PT'S SON SALEEM AND NOTIFIED THAT PT WILL BE TRANSFER TO [facility] [place] IN ROOM 7C UNDER THE CARE OF DR FERNANDEZ. BRAIN WAS AWARE AND ACKNOWLEDGED. PROVIDED A CALL BACK FOR FURTHER QUESTION.
--- NOTE | 2019-06-03 14:38 | NUR ---
CALLED [facility] AND GAVE REPORT TO BJ. JB WAS AWARE THAT PT IS GOING TO TRANSFER TO HER FACILITY IN ROOM 7C UNDER THE CARE OF DR FERNANDEZ. PROVIDED A CALL BACK NUMBER FOR QUESTION.
--- NOTE | 2019-06-03 15:08 | NUR ---
CNAS ARE AT BEDSIDE CHANGING THE PT TO PREPARE HER FOR [place] [facility] NO ACUTE DISTRESS NOTED. TELE MONITOR ATTACHED. SAFETY MEASURES IN PLACE. WILL CONTINUE TO MONITOR.
[2019-06-03 16:00] VITALS: BP 94/59
[2019-06-03] MEDS: LEVOFLOXACIN 250 MG/D5 PREMIX 50 ML IV SCH (16:55)
--- NOTE | 2019-06-03 16:56 | NUR ---
PT'S SCHEDULED IVPB LEVAQUIN WAS HUNG, AND IS RUNNING PER MD ORDERS. NO DISTRESS NOTED. TELE MONITOR ATTACHED. SAFETY MEASURES IN PLACE.
--- NOTE | 2019-06-03 17:46 | NUR ---
PT IS TRANSFERRING TO [facility] [place]. PT WAS DISCONNECTED FROM G-TUBE FEEDING AND IV. SHE IS LEAVING TRACH TO VENT, WITH A ANGLIN CATHETER IN PLACE. DISCHARGE INSTRUCTIONS WERE GIVEN TO TRANSPORT PERSONNEL, ALONG WITH BELONGINGS. PT IS IN STABLE CONDITION.
== END 2019-06-03 17:46 | DRG 643 ==
LOC: MED 11:46 → MIC 15:20 → MTU 05-31 20:55
PROVIDERS: ADMIT General Practice; ATTEND General Practice
PROC: 05HY33Z Insertion of Infusion Device into Upper Vein, Percutaneous Approach (ICD-10-PCS; principal; 2019-05-30)
PROC: B54MZZA Ultrasonography of Right Upper Extremity Veins, Guidance (ICD-10-PCS; 2019-05-30)
PROC: 5A1945Z Respiratory Ventilation, 24-96 Consecutive Hours (ICD-10-PCS; 2019-05-30)
DX: E22.2 Syndrome of inappropriate secretion of antidiuretic hormone (principal); E03.5 Myxedema coma; I50.43 Acute on chronic combined systolic (congestive) and diastolic (congestive) heart failure; J96.22 Acute and chronic respiratory failure with hypercapnia; E43 Unspecified severe protein-calorie malnutrition; N39.0 Urinary tract infection, site not specified; G93.40 Encephalopathy, unspecified; I69.351 Hemiplegia and hemiparesis following cerebral infarction affecting right dominant side; I13.0 Hypertensive heart and chronic kidney disease with heart failure and stage 1 through stage 4 chronic kidney disease, or unspecified chronic kidney disease; E03.9 Hypothyroidism, unspecified; E87.5 Hyperkalemia; R13.10 Dysphagia, unspecified; G40.909 Epilepsy, unspecified, not intractable, without status epilepticus; J44.9 Chronic obstructive pulmonary disease, unspecified; S80.921A Unspecified superficial injury of right lower leg, initial encounter; X58.XXXA Exposure to other specified factors, initial encounter; D53.1 Other megaloblastic anemias, not elsewhere classified; N18.3 Chronic kidney disease, stage 3 (moderate); F41.9 Anxiety disorder, unspecified; E83.39 Other disorders of phosphorus metabolism; I48.91 Unspecified atrial fibrillation; K21.9 Gastro-esophageal reflux disease without esophagitis; E78.5 Hyperlipidemia, unspecified; Z93.0 Tracheostomy status; Z93.1 Gastrostomy status; Z74.01 Bed confinement status; Z88.8 Allergy status to other drugs, medicaments and biological substances; Z68.27 Body mass index [BMI] 27.0-27.9, adult; Z88.0 Allergy status to penicillin; Z79.899 Other long term (current) drug therapy; Y93.89 Activity, other specified; Y92.89 Other specified places as the place of occurrence of the external cause; Y99.8 Other external cause status
CPT/HCPCS: 36415; 36600; 51702; 71045; 76604; 76700; 80048; 80053; 80156; 80305; 81001; 82803; 82948; 83036; 83690; 83735; 83880; 83930; 83935; 84100; 84134; 84300; 84443; 84484; 85025; 85610; 85730; 87040; 87070; 87081; 87086; 87186; 87205; 93005; 94003; 94640; 99285; C9113; J0610; J1815; J1956; J3490; J7030; Q0092

== ENCOUNTER 2019-06-07 12:03 | Emergency (ER) | payer OTHER, MEDICAID, SELFPAY ==
[~2019-06-07] VITALS: Ht 167.6 cm; Wt 77.1 kg
[2019-06-07] VITALS (7 sets, daily range): BP systolic 90–181; BP diastolic 29–64
[~2019-06-07 12:03] MED LIST changes: +ASCO500T45 PO; +LEVO250P6 IV; +SYN.05 GT
[2019-06-07 12:45] LABS: BASOPHILS % (AUTO) 0.4 % (0.0-2.0); EOSINOPHILS # (AUTO) 0.2 K/uL (0-0.4); LYMPHOCYTES # (AUTO) 0.6 K/uL (2.5-16.5); LYMPHOCYTES % (AUTO) 10.6 % (20.5-51.1); MONOCYTES # (AUTO) 0.5 K/uL (0.8-1.0); PLATELET COUNT (AUTO) 227 K/uL (140-450)
[2019-06-07 12:49] LABS: EOSINOPHILS % (AUTO) 3.3 % (0.0-4.0); HEMATOCRIT 21.4 % (36-48); MEAN CORPUSCULAR HEMOGLOBIN 35 pg (27-31); MEAN CORPUSCULAR HGB CONC 32 g/dL (33-37); MEAN CORPUSCULAR VOLUME 110.1 fL (80-94); MONOCYTES % (AUTO) 7.7 % (1.7-9.3); NEUTROPHILS # (AUTO) 4.7 K/uL (1.8-7.7); RED BLOOD CELL COUNT(AUTO) 1.94 MIL/uL (4.20-5.40); RED CELL DISTRIBUTION WIDTH 16.7 % (11.6-13.7)
[2019-06-07 13:03] LABS: HEMOGLOBIN 6.8 g/dL (12.0-16.0)
[2019-06-07 13:05] LABS: RSV NEGATIVE (NEGATIVE)
[2019-06-07 13:21] LABS: ALBUMIN 2.5 g/dL (3.4-5.0); ANION GAP 10.1 (8-16); ASPARTATE AMINOTRANSFERASE 34 U/L (15-37); CARBON DIOXIDE 30.6 mmol/L (21-32); CHLORIDE 101 mmol/L (98-107); GLUCOSE 125 mg/dL (74-106); LACTATE DEHYDROGENASE 185 U/L (81-234); POTASSIUM 4.7 mmol/L (3.5-5.1); SODIUM SERUM 137 mmol/L (136-145); TOTAL BILIRUBIN 0.2 mg/dL (0.0-1.0); UREA NITROGEN, BLOOD 49 mg/dL (7-18)
[2019-06-07] MEDS ORDERED: NACL 0.9% 500 ML IV ONE (14:20)
[2019-06-21] MEDS ORDERED: FURO-570 GT (05:30)
[2019-06-21] MEDS ORDERED: BISA-213 RC (05:30)
[2019-06-21] MEDS ORDERED: CARB200T4 GT (05:30)
[2019-06-21] MEDS ORDERED: APIX5TAB GT (05:30)
[2019-06-21] MEDS ORDERED: ASCO500T45 GT (05:30)
[2019-06-21] MEDS ORDERED: DIGO0.122 GT (05:30)
[2019-06-21] MEDS ORDERED: POLY17PD46 GT (05:30)
[2019-07-05] MEDS ORDERED: DIGO0.122 GT (09:12)
[2019-07-05] MEDS ORDERED: SYN.1 GT (09:19)
== END 2019-06-07 19:41 | disposition home or self-care (01) ==
LOC: MED 12:03 → EEVIPCON 12:03 → MED 19:41
DX: Z03.818 Encounter for observation for suspected exposure to other biological agents ruled out (principal); D64.9 Anemia, unspecified; I10 Essential (primary) hypertension; J44.9 Chronic obstructive pulmonary disease, unspecified; Z79.899 Other long term (current) drug therapy; Z88.0 Allergy status to penicillin; Z88.8 Allergy status to other drugs, medicaments and biological substances; Z98.890 Other specified postprocedural states
CPT/HCPCS: 36415; 36430; 71045; 80053; 83615; 84484; 85025; 86140; 86886; 86900; 86901; 86920; 87070; 87205; 87420; 87635; 87804; 89220; 96360; 99284; J7030; P9016; Q0092